=== PATIENT | female | born 1995 | race Caucasian/White ===

== ENCOUNTER → 2023-04-18 | Outpatient (CLI) | payer OTHER, SELFPAY ==
[2023-04-21 10:08] LABS: Chlamydia By Nucleic Acid AMP Negative (Negative); Gonococcus By Nucleic Acid AMP Negative (Negative)
== END | disposition home or self-care (01) ==
LOC: LABSPEC 15:19
PROVIDERS: Referring Provider Registered Nurse; Visit Provider Registered Nurse
DX: O09.91 Supervision of high risk pregnancy, unspecified, first trimester (principal); Z3A.00 Weeks of gestation of pregnancy not specified
CPT/HCPCS: 87086; 87491; 87591

== ENCOUNTER → 2023-05-04 | Outpatient (CLI) | payer OTHER, SELFPAY ==
[2023-05-04 10:09] LABS: Absolute Lymphocyte Count 1.94 X10^3/uL (0.83-4.51); Absolute Neutrophil Count 4.7 X10^3/uL (2.0-7.7); Basophil# 0.03 X10^3/uL; Basophil% 0.4 % (0-1); Eosinophil# 0.11 X10^3/uL; Eosinophils% 1.5 % (0-5); Hematocrit 36.8 % (37-47); Hemoglobin 11.9 g/dL (12.0-15.0); Lymphocyte # 1.94 X10^3/ul (0.83-4.51); Lymphocyte % 25.8 % (19-41); Mean Corp Hgb Conc 32.3 g/dL (32-36); Mean Corpuscular Hgb 27.7 pg (27.0-32.0); Mean Corpuscular Volume 85.8 fL (81-99); Mean Platelet Vol. 9.3 fl (6.2-12.0); Monocyte# 0.75 X10^3/uL; NRBC Flagged by Analyzer 0 % (0-5); Neutrophil # 4.66 X10^3/uL (2.7-7.7); Platelet Count 273 K/mm3 (150-450); RBC Distribution Width CV 13.5 % (11.6-14.6); RBC Distribution Width SD 42.3 fl (35.1-43.9); Red Blood Count 4.29 M/mm3 (4.2-5.4); White Blood Count 7.5 K/mm3 (4.4-11.0)
[2023-05-04 10:18] LABS: Glucose Challenge Gest 1H 50g 108 mg/dL (70-140)
[2023-05-04 11:02] LABS: HIV - WCH Non-Reactive (Nonreactive); Hepatitis B Surface Antigen Non-Reactive (Nonreactive); Hepatitis C Antibody Non-Reactive (Nonreactive); Rubella IgG Reactive (Nonreactive); Syphilis Antibodies Non-reactive
== END | disposition home or self-care (01) ==
PROVIDERS: PCP Family Medicine; Referring Provider Registered Nurse; Visit Provider Registered Nurse
DX: O09.91 Supervision of high risk pregnancy, unspecified, first trimester (principal); Z3A.00 Weeks of gestation of pregnancy not specified
CPT/HCPCS: 36415; 82950; 85025; 86703; 86762; 86780; 86803; 86850; 86900; 86901; 87340

== ENCOUNTER → 2023-08-09 | Outpatient (CLI) | payer OTHER, SELFPAY ==
[2023-08-09 15:56] LABS: Absolute Lymphocyte Count 2.59 X10^3/uL (0.83-4.51); Absolute Neutrophil Count 7.7 X10^3/uL (2.0-7.7); Basophil# 0.05 X10^3/uL; Basophil% 0.4 % (0-1); Eosinophil# 0.13 X10^3/uL; Eosinophils% 1.1 % (0-5); Hematocrit 36.7 % (37-47); Hemoglobin 11.8 g/dL (12.0-15.0); Lymphocyte # 2.59 X10^3/ul (0.83-4.51); Lymphocyte % 22.6 % (19-41); Mean Corp Hgb Conc 32.2 g/dL (32-36); Mean Corpuscular Hgb 28.6 pg (27.0-32.0); Mean Corpuscular Volume 89.1 fL (81-99); Mean Platelet Vol. 9.9 fl (6.2-12.0); Monocyte# 0.97 X10^3/uL; Monocyte% 8.5 % (0-10); NRBC Flagged by Analyzer 0 % (0-5); Neutrophil # 7.65 X10^3/uL (2.7-7.7); Platelet Count 285 K/mm3 (150-450); RBC Distribution Width CV 12.8 % (11.6-14.6); RBC Distribution Width SD 41.7 fl (35.1-43.9); Red Blood Count 4.12 M/mm3 (4.2-5.4); White Blood Count 11.4 K/mm3 (4.4-11.0)
[2023-08-09 16:15] LABS: Glucose Challenge Gest 1H 50g 54 mg/dL (70-140)
[2023-08-09 16:53] LABS: HIV - WCH Non-Reactive (Nonreactive); Syphilis Antibodies Non-reactive
== END | disposition home or self-care (01) ==
PROVIDERS: PCP Family Medicine; Referring Provider Obstetrics & Gynecology; Visit Provider Obstetrics & Gynecology
DX: O09.91 Supervision of high risk pregnancy, unspecified, first trimester (principal); Z3A.00 Weeks of gestation of pregnancy not specified
CPT/HCPCS: 36415; 82950; 85025; 86703; 86780

== ENCOUNTER → 2023-09-08 | Outpatient (CLI) | payer OTHER, SELFPAY ==
--- OUTSIDE RECORDS SUMMARY | 2023-09-08 15:49 | XMS RPT_ITS | CCD ---
Author Name Unknown Address [address] [place] [address] Organization [facility] Care Team Providers Care Internet And [employer] Business Project Manager Name Role Phone PATRICIO ROJAS Attending Unavailable VACCARIELLO, PATRICIO Admitting Unavailable VACCARIELLO, PATRICIO Primary Care Unavailable VACCARIELLO, PATRICIO Consulting Unavailable PROVIDER, UNKNOWN Consulting Unavailable PROVIDER, UNKNOWN Consulting Unavailable PROVIDER, UNKNOWN Consulting Unavailable VACCARIELLO, PATRICIO Attending Unavailable VACCSHALINI, PATRICIO Admitting Unavailable VACCARIELLO, PATRICIO Primary Care Unavailable VACCARIELLO, PATRICIO Consulting Unavailable PROVIDER, UNKNOWN Consulting Unavailable PROVIDER, UNKNOWN Consulting Unavailable PROVIDER, UNKNOWN Consulting Unavailable TING PRIMARY MD ABDI Primary Care Unavailable COLTON SAUER Attending Unavailable JAIME ZHAO Referring Unavailab le Problems Problem Classification Problem Date Documented Date Episodic/Chronic Other complications of ; puerperium affecting management of mother (3 sources) Abnormality in heart rate and rhythm complicating labor and delivery; Translations: [Abnormality in heart rate and rhythm complicating labor and delivery] Onset: 02-11-2021 Episodic Other and delivery including normal (1 source) Single live ; Translations: [Single live ] Onset: 02-11-2021 Episodic Other screening for suspected conditions (not mental disorders or infectious disease) (1 source) Encounter for screening for Streptococcus B; Translations: [Encounter for screening for Streptococcus B] Onset: 01-19-2021 Episodic Residual codes; unclassified (1 source) 39 weeks gestation of ; Translations: [39 weeks gestation of ] Onset: 02-11-2021 Episodic Results Test Name Value Interpretation Reference Range Facil ity Encounters Encounter Date Encounter Type Care Provider Facility Start: 06-21-2023 End: 06-21-2023 ambulatory MD [facility] Start: 02-11-2021 End: 02-13-2021 Evaluation and management of inpatient PATRICIO VACCARIELLO [facility] Start: 01-19-2021 End: 01-19-2021 [facility] Procedures Date Procedure Procedure Detail Performing Clinician Start: 02-12-2021 Delivery of Products of Conception, External Approach PATRICIO ROJAS Start: 02-12-2021 Division of Female P erineum, External Approach PATRICIO ROJAS Start: 02-12-2021 Urinalysis PATRICIO CHESTER Payers Date Payer Category Payer Unknown [id number] [id number] [id number] 1995 Unknown [id number] [id number] 1994 Unknown [id number] [id number]. [id number] Unknown [id number] Unknown [id number] Summary Purpose Family History No Family History Records FoundNo Family History Records FoundNo Family History Records FoundNo Family History Records FoundNo Family History Records Found Advance Directives No Advanced Directives Records FoundNo Advanced Directives Records FoundNo Advanced Directives Records FoundNo Advanced Directives Records FoundNo Advanced Directives Records Found Additional Source Comments INFORMATION SOURCE (unrecogn ized section and content) DATE CREATED AUTHOR AUTHOR'S ORGANIZ ATION 07/23/2020 [facility] DATE CREATED AUTHOR AUTHOR'S ORGANIZ ATION 07/12/2021 [facility] DATE CREATED AUTHOR AUTHOR'S ORGANIZ ATION 10/30/2021 [facility] DATE CREATED AUTHOR AUTHOR'S ORGANIZ ATION 06/22/2023 [facility] FOR RECORDS PERTAINING TO PATIENTS WHO ARE OR HAVE BEEN ENROLLED IN A CHEMICAL DEPENDENCY/SUBSTANCEABUSE PROGRAM, SOME INFORMATION MAY BE OMITTED. This clinical summary was aggregated from multiple sources. Caution should be exercised in using it in the provision of clinical care. This summary normalizes information from multiple sources, and as a consequence, information in this document may materially change the coding, format and clinical context of patient data. In addition, data may be omitted in some cases. CLINICAL DECISIONS SHOULD BE BASED ON THE PRIMARY CLINICAL RECORDS. [facility]. provides no warranty or guarantee of the accuracy or completeness of information in this document.
[2023-09-08 16:37] LABS: Protein, Urine (Random) 54.2 mg/dL (<11.9); Protein:Creat Ratio 187 mg/g CRE (0-200)
== END | disposition home or self-care (01) ==
LOC: LABSPEC 15:34
PROVIDERS: PCP Family Medicine; Referring Provider Obstetrics & Gynecology; Visit Provider Obstetrics & Gynecology
DX: Z34.90 Encounter for supervision of normal pregnancy, unspecified, unspecified trimester (principal)
CPT/HCPCS: 82570; 84156

== ENCOUNTER → 2023-10-25 | Outpatient (CLI) | payer OTHER, SELFPAY ==
--- OUTSIDE RECORDS SUMMARY | 2023-10-25 20:17 | XMS RPT_ITS | CCD ---
Author Name Unknown Address [address] [place] [address] Organization [facility] Care Team Providers Care Sand Hauler Name Role Phone PATRICIO ROJAS Attending Unavailable [...] End: 06-21-2023 ambulatory MD [facility] Start: 02-11-2021 End: 02-13-2021 Evaluation and management of inpatient PATRICIO VACCARIELLO [facility] Start: 01-19-2021 End: 01-19-2021 [facility] Procedures Date Procedure Procedure Detail Performing Clinician Start: 02-12-2021 Delivery of Products of Conception, External Approach PATRICIO ROJAS Start: 02-12-2021 Division of Female P erineum, External Approach PATRICIO ROJAS Start: 02-12-2021 Urinalysis PATRICIO CHESTER Payers Date Payer Category Payer Unknown [id number] [id number] 1995 Unknown [id number] [id number] 1995 Unknown [id number] [id number] Unknown [id number] Unknown [id number] Summary Purpose Family History No Family History [...] DATE CREATED AUTHOR AUTHOR'S ORGANIZ ATION 07/23/2020 [facility] DATE CREATED AUTHOR AUTHOR'S ORGANIZ ATION 07/12/2021 [facility] DATE CREATED AUTHOR AUTHOR'S ORGANIZ ATION 10/30/2021 [facility] DATE CREATED AUTHOR AUTHOR'S ORGANIZ ATION 06/22/2023 [facility] FOR RECORDS PERTAINING TO PATIENTS WHO [...] BE BASED ON THE PRIMARY CLINICAL RECORDS. [facility]. provides no warranty or guarantee of the accuracy or completeness of information in this document.
== END | disposition home or self-care (01) ==
PROVIDERS: PCP Family Medicine; Referring Provider Advanced Practice Midwife; Visit Provider Advanced Practice Midwife
DX: O09.91 Supervision of high risk pregnancy, unspecified, first trimester (principal); Z3A.00 Weeks of gestation of pregnancy not specified
CPT/HCPCS: 87077; 87081; 87186

== ENCOUNTER 2023-11-18 12:44 | Inpatient (IN) | payer OTHER, SELFPAY ==
[2023-11-18] VITALS (64 sets, daily range): BP systolic 87–146; BP diastolic 47–70; PULSE 58–87; RESP 16–18; TEMP 36.3–37.1; O2SAT 92–100; BMI 37.0
[2023-11-18] MEDS: Lactated Ringers 1,000 ML 50 ML IV (13:00)
[2023-11-18 13:35] LABS: Absolute Lymphocyte Count 2.52 X10^3/uL (0.83-4.51); Absolute Neutrophil Count 12.9 X10^3/uL (2.0-7.7); Basophil# 0.06 X10^3/uL; Basophil% 0.4 % (0-1); Eosinophil# 0.06 X10^3/uL; Eosinophils% 0.4 % (0-5); Hematocrit 37.1 % (37-47); Hemoglobin 11.9 g/dL (12.0-15.0); Lymphocyte # 2.52 X10^3/ul (0.83-4.51); Lymphocyte % 15.3 % (19-41); Mean Corp Hgb Conc 32.1 g/dL (32-36); Mean Corpuscular Hgb 28.1 pg (27.0-32.0); Mean Corpuscular Volume 87.7 fL (81-99); Mean Platelet Vol. 10.5 fl (6.2-12.0); Monocyte# 0.91 X10^3/uL; Monocyte% 5.5 % (0-10); NRBC Flagged by Analyzer 0 % (0-5); Platelet Count 251 K/mm3 (150-450); RBC Distribution Width CV 13.7 % (11.6-14.6); RBC Distribution Width SD 43.5 fl (35.1-43.9); Red Blood Count 4.23 M/mm3 (4.2-5.4); White Blood Count 16.5 K/mm3 (4.4-11.0)
[2023-11-18] MEDS: fentaNYL-bupivacaine (epidural) 100 ML BAG EPIDURAL ×2 (14:33→20:09)
[2023-11-18] MEDS: Penicillin G Pot 5,000,000 UNITS in 0.9% Normal Saline (100mL MB+) 100 ML 150 UNITS IV (14:40)
[2023-11-18 14:45] LABS: Syphilis Antibodies Non-reactive
[2023-11-18] MEDS: Lactated Ringers 1,000 ML 200 ML IV (17:37)
[2023-11-18] MEDS: Penicillin G 3,000,000 Units 50 ML 100 UNITS IV (18:35)
[2023-11-18] MEDS: Ondansetron 4 MG/2 ML Vial IV (19:34)
[2023-11-18] MEDS: 0.9% Saline Lock 10 ML Syringe IV (19:34)
[2023-11-18] MEDS: Oxytocin 10 UNITS/ML Vial IM (20:40)
[2023-11-18] MEDS: Oxytocin 15 Units/NS 250ml 15 UNITS/250 ML IV.SOLN 83 UNITS IV (20:40)
--- NOTE | 2023-11-18 20:48 | HP.PCM.OB_ITS ---
HPI - General General Date of Admission: 11/18/23 HPI Narrative MITUL MCDANIEL, is a 28 F who presents IAL with regular ctx, 4-5 cm dilated no vb lof Maternal Data Information SIVAKUMAR Calculator Estimated Delivery Date Method Current WG Current Estimate 11/17/23 LMP (Certain) 40w 1d PFSH PFSH Home Medications docosahexaenoic acid 200 mg capsule ( DHA) mg PO 04/18/23 [History Last Taken 11/17/23 22:00] Allergy/AdvReac Type Severity Reaction Status Date / Time No Known Allergies Allergy Verified 11/18/23 12:54 Family History Father Hodgkins lymphoma Social History current occupational status: employed 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 Date Name GA/Weeks Outcome Route Bth Weight Gen Labor Lgth Anesthesia Del Locatn Provider FOB 02/12/21 [place] 39 live - full term [facility] 7[facility]: [facility] Last Updated by: Alison Reynolds No issues during or delivery other than vacuum. Visit Details Expected Delivery Route/Plan Labor Preferences- CB/BF classes: [] labor support person: [] labor intervention preferences: epidural pain management options preferred: [] cut cord/dad catch: [] : [] PP control planned: [] discussed possible routes of delivery and associated risks: [] special requests: [] Plans Covid status: [] Flu vaccine: declined Tdap vaccine: declined Rhogam: na LARC form signed: [] Problem list reviewed and updated with the most current plan of care details and appropriate orders placed. Relevant counseling for the gestational age provided. Continue routine care and follow up unless otherwise noted in visit notes/problem list details OB Flowsheet Initial Weight: 236 lb Date -?-?-?-?-?-?-?-?-?-?-?-?- EGA Weight BP Urine Prot -?-?-?-?-?-?-?-?-?-?-?-?- Glucose FHR FuHt Pres Dilation -?-?-?-?-?-?-?-?-?-?-?-?- Effaced St Visit Note 04/18/23 -?-?-?-?-?-?-?-?-?-?-?-?- 9w 4d 236 lb (+0 oz) 120/78 -?--?-?-?-?-?-?-?-?-?-?-?- 169 -?-?-?-?-?-?-?-?-?-?-?-?- LC- 2.7CRL con w ith LMP. SIVAKUMAR 11/17/2023.reviewed with SM. BMI >30 early glucose. considering NIPT. 05/18/23 -?-?-?-?-?-?-?-?-?-?-?-?- 13w 6d 233 lb 2 oz (-2 lb 14 oz) 120/77 Negative -?-?-?-?-?-?-?-?-?-?-?-?- Negative 144 -?-?-?-?-?-?-?-?-?-?-?-?- JV- decided agai nst nipt JV- decided against nipt. na usea is improving but not gone. [place] are going [place] 06/15/23 -?-?-?-?-?-?-?-?-?-?-?-?- 17w 6d 233 lb 6 oz (-2 lb 10 oz) 120/78 Negative -?-?-?-?-?-?-?-?-?-?-?-?- Negative 146 -?-?-?-?-?-?-?-?-?-?-?-?- MH-No VB. Declin es NIPT and flu vaccine. Still using zofran for nausea. 07/12/23 -?-?-?-?-?-?-?-?-?-?-?-?- 21w 5d 240 lb (+4 lb) 129/82 Negative -?-?-?-?-?-?-?-?-?-?-?-?- Negative 141 -?-?-?-?-?-?-?-?-?-?-?-?- JV- nausea still present and is taking zofran frequently. This is causing constipation which is now making her hemorrhoids flare up. will switch to reglan an recommend colace + miralax. anatomy scan was not complete the first time but had her follow up scan yesterday. results are pending but states they were complete this time. 08/09/23 -?-?-?-?-?-?-?-?-?-?-?-?- 25w 5d 240 lb (+4 lb) 112/78 Negative -?-?-?-?-?-?-?-?-?-?-?--?- Negative 150 26 -?-?-?-?-?-?-?-?-?-?-?-?- SM- `no vb lof g ood fm no regular ctx nl glucola reviewed low BS 08/24/23 -?-?-?-?-?-?-?-?-?-?-?-?- 27w 6d 241 lb 2 oz (+5 lb 2 oz) 133/75 Negative -?-?-?-?-?-?-?-?-?-?-?-?- Negative 154 28 -?-?-?-?-?-?-?-?-?-?-?-?- JV- no lof, vagi nal bleeding, or dec fm. normal (low) glucola. tdap next visit. 09/08/23 -?-?-?-?-?-?-?-?-?-?-?-?- 30w 0d 245 lb (+9 lb) 125/81 1+ -?-?-?-?-?-?-?-?-?-?-?-?- Negative 150 30 -?-?-?-?-?-?-?-?-?-?-?-?- SM- no vb lof go od fm no reuglar ctx 09/21/23 -?-?-?-?-?-?-?-?-?-?-?-?- 31w 6d 246 lb 6 oz (+10 lb 6 oz) 128/79 -?-?-?-?-?-?-?-?-?-?-?-?- 130 32 -?-?-?-?-?-?-?-?-?-?-?-?- LC- audible dece l to 70 with quick resolution to 130, decel to 100s heard. NST obtained, reactive with accel no further decels. no vb/ctx/lof. good fm. larc signed. 10/06/23 -?-?-?-?-?-?-?-?-?-?-?-?- 34w 0d 249 lb 6 oz (+13 lb 6 oz) 116/74 Negative -?-?-?-?-?-?-?-?-?-?-?-?- Negative 130 34 -?-?-?-?-?-?-?-?-?-?-?-?- KW-no vb/crampin g. good fm. no concerns today. 10/18/23 -?-?-?-?-?-?-?-?-?-?-?-?- 35w 5d 248 lb 2 oz (+12 lb 2 oz) 121/80 Negative -?-?-?-?-?-?-?-?-?-?-?-?- Negative 140 35 -?-?-?-?-?-?-?-?-?-?-?-?- KW- no vb/crampi ng/lof. good fm. GBS next visit. 10/25/23 -?-?-?-?-?-?-?-?-?-?--?-?- 36w 5d 250 lb 4 oz (+14 lb 4 oz) 136/86 Negative -?-?-?-?-?-?-?-?-?-?-?-?- Negative 155 37 Cephalic 2 -?-?-?-?-?-?-?-?--?-?-?-?- 60 -2 KW-no vb/l of/ctx. good fm. gbs today. discussed EPO use. 11/02/23 -?-?-?-?-?-?-?-?-?-?-?-?- 37w 6d 251 lb 2 oz (+15 lb 2 oz) 120/82 Negative -?-?-?-?-?-?-?-?-?-?-?-?- Negative 129 Cephalic 1.5 -?-?-?-?-?-?-?-?-?-?-?-?- 70 -1 JV- no lof , vaginal bleeding, or dec fm. 11/10/23 -?-?-?-?-?-?-?-?-?-?-?-?- 39w 0d 254 lb (+18 lb) 130/83 Negative -?-?-?-?-?-?-?-?-?-?-?-?- Negative 120 Cephalic 1.5 -?-?-?-?-?-?-?-?-?-?-?-?- 60 -2 SM- no vb lof good fm no regular ctx 11/17/23 -?-?-?-?-?-?-?-?-?-?-?-?- 40w 0d 354 lb (+118 lb) 254 lb (+18 lb) 128/84 Negative -?-?-?-?-?-?-?-?-?-?-?-?- Negative 120 37 Cephalic 2 -?-?-?-?-?-?-?-?-?-?-?-?- 70 SM- no v b lof good fm no regular ctx fh low silvio checked- NST FHR Rate Baby A Baseline: 140 Variability:: Moderate Accelerations:: 15 x 15 Decelerations:: None NST Reactive:: Yes FHR Category:: Category I Uterine Activity:: q3-5 ROS Constitutional Constitutional: Reports systems reviewed and no addt'l complaints, except as documented ENT HEENT: Reports systems reviewed and no addt'l complaints, except as documented Cardiovascular Cardiovascular: Reports systems reviewed and no addt'l complaints, except as documented Respiratory/Chest Respiratory/Chest: Reports systems reviewed and no addt'l complaints, except as documented Gastrointestinal Gastrointestinal: Reports systems reviewed and no addt'l complaints, except as documented and nausea; Denies abdominal pain Genitourinary Genitourinary: Reports systems reviewed and no addt'l complaints, except as documented, contractions Details: present and frequency (regular ) and movement Details: present Musculoskeletal Musculoskeletal: Reports systems reviewed and no addt'l complaints, except as documented Integumentary Integumentary: Reports as per HPI Neurologic Neurologic: Reports systems reviewed and no addt'l complaints, except as documented Endocrine Endocrinology: Reports systems reviewed and no addt'l complaints, except as documented Vital Signs Vital Signs Vital Signs: 11/18/23 12:50 11/18/23 12:50 11/18/23 12:55 Temperature Temperature Source Pulse Rate 82 81 Respiratory Rate Blood Pressure BP Systolic BP Diastolic Pulse Ox 100 11/18/23 12:55 11/18/23 14:01 11/18/23 14:01 Temperature Temperature Source Pulse Rate 73 Respiratory Rate Blood Pressure 146/67 H BP Systolic 146 BP Diastolic 67 Pulse Ox 100 11/18/23 14:01 11/18/23 14:11 11/18/23 14:14 Temperature Temperature Source Pulse Rate 76 Respiratory Rate Blood Pressure 119/70 BP Systolic 119 BP Diastolic 70 Pulse Ox 100 11/18/23 14:14 11/18/23 14:17 11/18/23 14:17 Temperature Temperature Source Pulse Rate 74 Respiratory Rate Blood Pressure BP Systolic BP Diastolic Pulse Ox 100 92 11/18/23 14:19 11/18/23 14:19 11/18/23 14:22 Temperature Temperature Source Pulse Rate 73 Respiratory Rate Blood Pressure 100/48 L BP Systolic 100 BP Diastolic 48 Pulse Ox 100 11/18/23 14:22 11/18/23 14:24 11/18/23 14:24 Temperature Temperature Source Pulse Rate 87 76 Respiratory Rate Blood Pressure BP Systolic BP Diastolic Pulse Ox 100 11/18/23 14:26 11/18/23 14:26 11/18/23 14:29 Temperature Temperature Source Pulse Rate 77 75 Respiratory Rate Blood Pressure 97/51 L BP Systolic 97 BP Diastolic 51 Pulse Ox 11/18/23 14:29 11/18/23 14:33 11/18/23 14:33 Temperature Temperature Source Pulse Rate 71 Respiratory Rate Blood Pressure 98/55 L BP Systolic 98 BP Diastolic 55 Pulse Ox 100 11/18/23 14:34 11/18/23 14:34 11/18/23 14:36 Temperature Temperature Source Pulse Rate 71 Respiratory Rate Blood Pressure 100/53 L BP Systolic 100 BP Diastolic 53 Pulse Ox 100 11/18/23 14:36 11/18/23 14:39 11/18/23 14:39 Temperature Temperature Source Pulse Rate 74 77 Respiratory Rate Blood Pressure BP Systolic BP Diastolic Pulse Ox 100 11/18/23 14:41 11/18/23 14:41 11/18/23 14:44 Temperature Temperature Source Pulse Rate 69 70 Respiratory Rate Blood Pressure 100/53 L BP Systolic 100 BP Diastolic 53 Pulse Ox 11/18/23 14:44 11/18/23 14:49 11/18/23 14:49 Temperature Temperature Source Pulse Rate 74 Respiratory Rate Blood Pressure BP Systolic BP Diastolic Pulse Ox 100 100 11/18/23 14:53 11/18/23 14:53 11/18/23 14:54 Temperature Temperature Source Pulse Rate 69 68 Respiratory Rate Blood Pressure 100/51 L BP Systolic 100 BP Diastolic 51 Pulse Ox 11/18/23 14:54 11/18/23 15:14 11/18/23 15:14 Temperature Temperature Source Pulse Rate 66 Respiratory Rate Blood Pressure 106/55 L BP Systolic 106 BP Diastolic 55 Pulse Ox 100 11/18/23 14:15 11/18/23 16:15 11/18/23 16:15 Temperature Temperature Source Pulse Rate 71 Respiratory Rate 16 Blood Pressure 106/57 L BP Systolic 106 BP Diastolic 57 Pulse Ox 11/18/23 17:14 11/18/23 17:14 11/18/23 17:15 Temperature Temperature Source Pulse Rate 62 Respiratory Rate Blood Pressure 88/47 L BP Systolic 88 BP Diastolic 47 Pulse Ox 99 11/18/23 17:15 11/18/23 17:19 11/18/23 17:19 Temperature Temperature Source Pulse Rate 67 65 Respiratory Rate Blood Pressure BP Systolic BP Diastolic Pulse Ox 100 11/18/23 17:19 11/18/23 17:19 11/18/23 17:19 Temperature 98.7 F Temperature Source Temporal Pulse Rate Respiratory Rate 16 Blood Pressure BP Systolic BP Diastolic Pulse Ox 11/18/23 17:24 11/18/23 17:24 11/18/23 18:16 Temperature Temperature Source Pulse Rate 66 Respiratory Rate Blood Pressure 89/53 L 87/49 L BP Systolic 89 87 BP Diastolic 53 49 Pulse Ox 11/18/23 18:16 11/18/23 18:45 11/18/23 18:45 Temperature Temperature Source Pulse Rate 65 68 Respiratory Rate Blood Pressure 101/60 BP Systolic 101 BP Diastolic 60 Pulse Ox 11/18/23 19:15 11/18/23 19:15 11/18/23 19:35 Temperature Temperature Source Temporal Pulse Rate 74 Respiratory Rate Blood Pressure 111/57 L BP Systolic 111 BP Diastolic 57 Pulse Ox 11/18/23 19:35 11/18/23 19:35 11/18/23 14:05 Temperature 97.6 F L Temperature Source Pulse Rate Respiratory Rate 18 16 Blood Pressure BP Systolic BP Diastolic Pulse Ox 11/18/23 14:20 11/18/23 14:13 11/18/23 14:30 Temperature Temperature Source Pulse Rate Respiratory Rate 16 16 16 Blood Pressure BP Systolic BP Diastolic Pulse Ox 11/18/23 14:25 11/18/23 14:21 11/18/23 14:32 Temperature Temperature Source Pulse Rate Respiratory Rate 16 16 16 Blood Pressure BP Systolic BP Diastolic Pulse Ox 11/18/23 20:05 11/18/23 20:06 11/18/23 20:06 Temperature Temperature Source Temporal Pulse Rate 64 Respiratory Rate Blood Pressure 109/63 BP Systolic 109 BP Diastolic 63 Pulse Ox 11/18/23 20:05 11/18/23 20:05 Temperature 97.3 F L Temperature Source Pulse Rate Respiratory Rate 16 Blood Pressure BP Systolic BP Diastolic Pulse Ox Weight Weight: 251 lb Body Mass Index (BMI) 37.0 Physical Exam Const alert, oriented x3 and healthy appearing Constitutional Narrative: uncomfortable with contractions HEENT normocephalic and moist oral mucous membranes Head and Scalp: atraumatic Neck full ROM, no lymphadenopathy, supple and thyroid normal General: trachea midline Thyroid: thyroid normal Lymph Lymphatic: no lymphadenopathy noted Chest inspection of chest normal Resp normal respiratory effort Cardio regular rate GI normal to inspection, nondistended, normoactive bowel sounds, soft to palpation and non-tender Inspection: gravid external exam normal Bimanual Exam - Vag & Uterus: uterus non-tender Manual OB Exam: estimated gestational size appropriate, presentation cephalic, dilated, effaced and station Extremity normal to inspection General Extremity: Negative for edema Skin no rashes or lesions noted Neuro deep tendon reflexes 2+ bilaterally Motor Exam: strength 5/5 throughout and clonus absent Psych mental status grossly normal Labs Labs Labs: Blood Type O POSITIVE Antibody Screen NEGATIVE Hct 37.1 % (37-47) Hgb 11.9 g/dL (12.0-15.0) L Syphilis Total Ab Non-reactive Rubella IgG Antibody Reactive (Nonreactive) Hep Bs Antigen Non-Reactive (Nonreactive) Hepatitis C Antibody Non-Reactive (Nonreactive) Chlamydia DNA (JASON) Negative (Negative) N.gonorrhoeae DNA (JASON) Negative (Negative) HIV 1&2 Antibody Non-Reactive (Nonreactive) Glucose 1 Hr 50 gm 54 mg/dL (70-140) L Assessment & Plan (1) Positive GBS test: COMMENT: treat in labor (2) Nausea & vomiting: QUALIFIERS: Vomiting type: unspecified Qualified Code(s): R11.2 - Nausea with vomiting, unspecified COMMENT: vitamin b 6 and unisom adding zofran/controlling (3) History of vacuum extraction assisted delivery: COMMENT: at 39 weeks. (4) Depression with anxiety: (5) Obesity: QUALIFIERS: Obesity type: due to excess calories Obesity classification: adult class 1 (BMI 30 - 34.9) Serious obesity comorbidity presence: without serious comorbidity Body mass index: BMI 34.0-34.9 Qualified Code(s): E66.09 - Other obesity due to excess calories; Z68.34 - Body mass index [BMI] 34.0-34.9, adult COMMENT: 1hr GTT given at NOB- passed. healthy weight gain, activity in . (6) : QUALIFIERS: Weeks of gestation: 40 weeks Qualified Code(s): Z3A.40 - 40 weeks gestation of COMMENT: considering genetic and carrier screen. (7) Supervision of high risk in first trimester: COMMENT: PRR SIVAKUMAR 11/17/23 girl PC [place]. : Dinh (8) Active labor at term: PLAN: Plan Patient presents IAL, plan expectant management for , pitocin/AROM PRN if needed. Pain management: plans epidural. GBS positive plan IV PCN. Management of any complications: none I have reviewed the [facility] and made any clinically relevant updates.
--- NOTE | 2023-11-18 20:56 | EX.PCM.OBRPT ---
Assessment & Plan (1) Active labor at term: (2) Positive GBS test: COMMENT: treat in labor (3) Nausea & vomiting: QUALIFIERS: Vomiting type: unspecified Qualified Code(s): R11.2 - Nausea with vomiting, unspecified COMMENT: vitamin b 6 and unisom adding zofran/controlling (4) Supervision of high risk in first trimester: COMMENT: PRR SIVAKUMAR 11/17/23 girl PC [place]. : Dinh (5) : QUALIFIERS: Weeks of gestation: 40 weeks Qualified Code(s): Z3A.40 - 40 weeks gestation of COMMENT: considering genetic and carrier screen. (6) Obesity: QUALIFIERS: Obesity type: due to excess calories Obesity classification: adult class 1 (BMI 30 - 34.9) Serious obesity comorbidity presence: without serious comorbidity Body mass index: BMI 34.0-34.9 Qualified Code(s): E66.09 - Other obesity due to excess calories; Z68.34 - Body mass index [BMI] 34.0-34.9, adult COMMENT: 1hr GTT given at NOB- passed. healthy weight gain, activity in . (7) Depression with anxiety: (8) Vaginal delivery: COMMENT: SM IAL girl 40 Maternal Data Information SIVAKUMAR Calculator Estimated Delivery Date Method Current WG Current Estimate 11/17/23 LMP (Certain) 40w 1d Vaginal Delivery Operative Information Date of Procedure: 11/18/23 Pre-Operative Diagnosis: see a/p diagnoses Post-Operative Diagnosis: same Surgery / Procedure Performed: Spontaneous Vaginal Delivery Type of Anesthesia: Epidural Special Medications: none Estimated Blood Loss: 200 Fluids Replaced: crystalloid Findings Description of Procedure: Patient began pushing and delivered the head in the VERN presentation. The head was delivered atraumatically and a loose nuchal cord ?1 was identified and the infant delivered through without complication. The anterior and posterior shoulders delivered without complication followed by the rest of the infant and the was placed on the maternal abdomen. Delayed cord clamping was employed for approximately 60 seconds. Cord was clamped and cut and gentle traction was applied to the cord and the placenta delivered spontaneously immediately following it was noted to be intact with three-vessel cord. The perineum and vagina were inspected and noted to have a first degree perineal laceration which was repaired in the usual fashion with 3-0 vicryl rapide. . EBL was 200 cc. Patient and tolerated delivery well. Amniotic Fluid Description: Clear Placental Delivery Description: Spontaneous Placenta Disposition: [facility] Cord Vessel Description: 3 Vessels Cord Entanglement: Around neck x 1, loose Delayed Cord Clamping: Yes Post Vaginal Delivery Medications Given After Delivery: IV Pitocin Episiotomy Description: None Complication Complications: None Procedures Urinary/Genital [id number]: [id number] [facility]
--- NOTE | 2023-11-18 20:58 | DCINST_ITS ---
Discharge Instructions Diet Discharge Diet: No restrictions Activity Discharge Activity: Return to Normal Activity, May Not Drive (while taking narcotic pain medications.) and May Shower May resume sexual activity in: 4-6 weeks Dressing / Incision Call your doctor if your incision/area has: Continuous Slow Oozing, Sudden Increased Bleeding, Increased Pain/ Swelling, Increased Redness and Foul Smelling Discharge Follow Up Care Please Follow Up With: Gail Jackson MD When: Call [phone] to make an appointment with your doctor in 6 weeks. If you had elevated blood pressure or 4th degree laceration, you will need to be seen in 2 weeks. Test Results: Test results from this visit will be discussed in further detail at your follow- up appointment, if applicable. Discharge Plan Admission Admit Date/Time: 11/18/23 12:44 Attending Provider: Gail Jackson Primary Care Provider: Angela Pond Discharge Orders/Prescriptions Prescriptions: No Action DHA 200 mg capsule PO Referrals / Follow Up: Angela Pond PA-C [Primary Care Provider] -
--- NOTE | 2023-11-18 21:03 | NURSING ---
guadalupe cath insertion per Abe MCLEOD.
--- NOTE | 2023-11-18 22:54 | NURSING ---
Epidural catheter removed, blue tip intact.
[2023-11-19 00:15] VITALS: BP 116/59; PULSE 71; RESP 16; TEMP 36.6; O2SAT 100
[2023-11-19 04:17] VITALS: BP 115/63; PULSE 69; RESP 16; TEMP 36.7; O2SAT 95
[2023-11-19] MEDS: Acetaminophen 500 MG Tablet 1000 MG PO (04:32)
[2023-11-19 08:20] VITALS: BP 119/66; PULSE 60; RESP 14; TEMP 37; O2SAT 99
[2023-11-19 12:30] VITALS: BP 122/78; PULSE 85; RESP 16; TEMP 36.6
[2023-11-19 17:52] VITALS: BP 133/55; PULSE 74; RESP 16; TEMP 36.6; O2SAT 100
[2023-11-19] MEDS: Benzocaine/Lanolin/Aloe Vera 1 SPRAY EACH TOPICAL (21:03)
[2023-11-19] MEDS: Naproxen 500 MG Tablet PO (21:03)
[2023-11-19 21:11] VITALS: BP 122/52; PULSE 71; RESP 16; TEMP 36.6; O2SAT 97
[2023-11-20 03:32] VITALS: BP 100/58; PULSE 55; RESP 16; TEMP 36.3; O2SAT 95
[2023-11-20 08:49] VITALS: BP 128/75; PULSE 69; RESP 16; TEMP 36.2; O2SAT 99
--- NOTE | 2023-11-20 10:41 | PCM.PN.OB ---
Subjective Subjective late documentation- patient seen 11/18 at 800am Patient doing well without complaints. Tolerating PO. Ambulating and voiding without difficulty. Feeding well. Denies chest pain, shortness of breath, calf pain/swelling, fevers, chills, lightheadedness. Objective Data Objective Data Vital Signs: Vital Signs Temp Pulse Resp BP Pulse Ox O2 Del Method 97.2 F L 69 16 128/75 H 99 Room Air 11/20/23 08:49 11/20/23 08:49 11/20/23 08:49 11/20/23 08:49 11/20/23 08:49 11/20/23 03:32 Oxygen Delivery Method Room Air Weight: 251 lb Body Mass Index (BMI) 37.0 Intake & Output: Intake and Output for Last 24 Hours 11/18/23 11/19/23 11/21/23 23:59 23:59 00:59 Intake Total 1445.83 / 1445.83 Output Total 1150 / 1150 1400 / 1400 Balance 295.83 / 295.83 -1400 / -1400 Lab / Micro Data 11/18/23 13:20 ROS Constitutional Constitutional: Reports systems reviewed and no addt'l complaints, except as documented Cardiovascular Cardiovascular: Reports systems reviewed and no addt'l complaints, except as documented Respiratory/Chest Respiratory/Chest: Reports systems reviewed and no addt'l complaints, except as documented Gastrointestinal Gastrointestinal: Reports systems reviewed and no addt'l complaints, except as documented Physical Exam Const alert, oriented x3 and no apparent distress HEENT Head and Scalp: atraumatic Resp normal respiratory effort GI soft to palpation and non-tender Bimanual Exam - Vag & Uterus: uterus non-tender Uterus Palpation: uterus fundus firm (below Umbilicus) Assessment & Plan (1) Vaginal delivery: COMMENT: SM IAL girl 39 (2) Depression with anxiety: PLAN: Plan s/p PPD # 1 1. routine post delivery care 2. breast feeding- support given 3. rh positive 4. rubella immune
--- NOTE | 2023-11-20 10:42 | PCM.PN.OB ---
Subjective Subjective Patient doing well without complaints. Tolerating PO. Ambulating and voiding without difficulty. feeding well. Denies chest pain, shortness of breath, calf pain/swelling, fevers, chills, lightheadedness. Objective Data Objective Data Vital Signs: Vital Signs Temp Pulse Resp BP Pulse Ox O2 Del Method 97.2 F L 69 16 128/75 H 99 Room Air 11/20/23 08:49 11/20/23 08:49 11/20/23 08:49 11/20/23 08:49 11/20/23 08:49 11/20/23 03:32 Oxygen Delivery Method Room Air Weight: 251 lb Body Mass Index (BMI) 37.0 Intake & Output: Intake and Output for Last 24 Hours 11/18/23 11/19/23 11/21/23 23:59 23:59 00:59 Intake Total 1445.83 / 1445.83 Output Total 1150 / 1150 1400 / 1400 Balance 295.83 / 295.83 -1400 / -1400 Lab / Micro Data 11/18/23 13:20 ROS Constitutional Constitutional: Reports systems reviewed and no addt'l complaints, except as documented Cardiovascular Cardiovascular: Reports systems reviewed and no addt'l complaints, except as documented Respiratory/Chest Respiratory/Chest: Reports systems reviewed and no addt'l complaints, except as documented Gastrointestinal Gastrointestinal: Reports systems reviewed and no addt'l complaints, except as documented Physical Exam Const alert, oriented x3 and no apparent distress HEENT Head and Scalp: atraumatic Resp normal respiratory effort GI soft to palpation and non-tender Bimanual Exam - Vag & Uterus: uterus non-tender Uterus Palpation: uterus fundus firm (below Umbilicus) Assessment & Plan (1) Vaginal delivery: COMMENT: SM IAL girl Natacha 39 (2) Depression with anxiety: PLAN: Plan s/p PPD # 2 1. routine post delivery care 2. breast feeding- support given 3. rh positive 4. rubella immune
== END 2023-11-20 11:15 | disposition home or self-care (01) | DRG 807 ==
PROVIDERS: Admitting Provider Obstetrics & Gynecology; PCP Family Medicine; Referring Provider Obstetrics & Gynecology; Visit Provider Obstetrics & Gynecology
DX: O69.81X0 Labor and delivery complicated by cord around neck, without compression, not applicable or unspecified (principal); Z37.0 Single live birth; E66.09 Other obesity due to excess calories; O99.214 Obesity complicating childbirth; O99.824 Streptococcus B carrier state complicating childbirth; O70.0 First degree perineal laceration during delivery; O21.2 Late vomiting of pregnancy; Z3A.40 40 weeks gestation of pregnancy; Z87.59 Personal history of other complications of pregnancy, childbirth and the puerperium
CPT/HCPCS: 59025; 59050; 85025; 86780; 86850; 86900; 86901; J7120; A4216; J2405

== ENCOUNTER → 2023-12-28 | Outpatient (CLI) | payer OTHER, SELFPAY ==
[2024-01-04 16:44] LABS: HPV Reflexed? NOT INDICATED
== END | disposition home or self-care (01) ==
PROVIDERS: PCP Family Medicine; Referring Provider Nurse Practitioner Women's Health; Visit Provider Nurse Practitioner Women's Health
DX: Z12.4 Encounter for screening for malignant neoplasm of cervix (principal)
CPT/HCPCS: 88175; G0145

== ENCOUNTER → 2025-07-01 | Outpatient (CLI) | payer OTHER, SELFPAY ==
--- OUTSIDE RECORDS SUMMARY | 2025-07-01 12:04 | XMS RPT_ITS | CCD ---
Author Organization [facility] Care Team Providers Care Street Light Repairer Name Role Phone GERMAN, PATRICIO Attending Unavailable VACCARIELLO, PATRICIO Admitting Unavailable VACCARIELLO, PATRICIO Primary Care Unavailable VACCARIELLO, PATRICIO Consulting Unavailable PROVIDER, UNKNOWN Consulting Unavailable PROVIDER, UNKNOWN Consulting Unavailable PROVIDER, UNKNOWN Consulting Unavailable VACCARIELLO, PATRICIO Attending Unavailable VACCARIELLO, PATRICIO Admitting Unavailable VACCARIELLO, PATRICIO Primary Care Unavailable VACCARIELLO, PATRICIO Consulting Unavailable PROVIDER, UNKNOWN Consulting Unavailable PROVIDER, UNKNOWN Consulting Unavailable PROVIDER, UNKNOWN Consulting Unavailable LAURA Villa Attending Provider [phone] NO PRIMARY CARE, Primary Care Unavailable COLTON SAUER Attending Unavailable INDIGO ZHAO Referring Unavailab LAURA Youngblood Attending Provider Dr. Indigo Reyes Attending Provider [phone] Bono PA, PA-C Angela Primary Care Provider Bono PA, PA-C Angela Referring Provider Jessica WIRER MAINTENANCE, MYRIAM Blanco Attending Provider [phone] Dr. Gail Jackson Attending Provider [phone] Bono PA, PA-C Angela Primary Care Provider [phone] Bono PA, PA-C Angela Referring Provider Dr. Indigo Reyes Attending Provider [phone] LAURA Villa Attending Provider [phone] LAURA Serra Attending Provider [phone] Bono PA, PA-C Angela Primary Care Provider Bono PA, PA-C Agnela Referring Provider [phone] Dr. Gail Jackson Attending Provider [phone] Dr. Indigo Reyes Attending Provider [phone] LAURA Villa Attending Provider [phone] LAURA Serra Attending Provider [phone] Dr. Gail Jackson Admit Provider [phone] Dr. Gail Jackson Referring Provider [phone] Dr. aGil Jackson Other Provider [phone] Bono PA, PA-C Angela Primary Care Provider [phone] Bono PA, PA-C Angela Referring Provider Dr. Gail Jackson Attending Provider [phone] Dr. Indigo Reyes Attending Provider [phone] Jessica WIRER MAINTENANCE, WIRER MAINTENANCEAlinC Bella Attending Provider [phone] Gail Jackson Attending Unavailable Bono PA, Angela Primary Care Unavailable Bono PA, Angela Referring Unavailable Vande VeldeIndigo Attending Unavailabl e Bono PA, Angela Referring Unavailable Bono PA, Angela Primary Care Unavailable Bella Lopez Attending Unavailable Bono PA, Angela Referring Unavailable Bono PA, Angela Primary Care Unavailable Gail Jackson Consulting Unavailable Gail Jackson Admitting Unavailable Gail Jackson Referring Unavailable Bono PA, Angela Primary Care Unavailable Gail Jackson Attending Unavailable Gail Jackson Consulting Unavailable Vande VeldeValerieIndigo Referring Unavailabl e Vande VeldeIndigo Attending Unavailabl e Bono PA, Angela Primary Care Unavailable Bono PA, Angela Primary Care Unavailable Lauren Serra Attending Unavailable Lauren Serra Referring Unavailable Gail Jackson Admitting Unavailable Gail Jackson Referring Unavailable Gail Jackson Attending Unavailable Bono PA, Angela Primary Care Unavailable Gail Jackson Referring Unavailable Gail Jackson Attending Unavailable Bono PA, Angela Primary Care Unavailable Bella Lopez Attending Unavailable Bono PA, Angela Primary Care Unavailable Bono PA, Angela Referring Unavailable Gail Jackson Attending Unavailable Bono PA, Angela Referring Unavailable Bono PA, Angela Primary Care Unavailable Bono PA, Angela Primary Care Unavailable Gail Jackson Attending Unavailable Bono PA, Angela Referring Unavailable Judy Villa Attending Unavailable Indigo Reyes [facility] Angela Primary Care Unavailable Bono PA, Angela Referring Unavailable Gail Jackson Attending Unavailable Bono PA, Angela Primary Care Unavailable Bono PA, Angela Referring Unavailable Indigo Reyes [facility], Angela Primary Care Unavailable Bono PA, Angela Referring Unavailable Bono PA, Angela Referring Unavailable Bono PA, Angela Primary Care Unavailable Lauren Serra Attending Unavailable Bono PA, Angela Referring Unavailable Bono PA, Angela Primary Care Unavailable Lauren Serra Attending Unavailable Bella Lopez Referring Unavailable Bella Lopez Attending Unavailable Bono PA, Angela Primary Care Unavailable Judy Villa Referring Unavailable Judy Villa Attending Unavailable Bono PA, Angela Primary Care Unavailable Bono PA, Angela Referring Unavailable Bono PA, Angela Primary Care Unavailable Lauren Serra Attending Unavailable Judy Villa Referring Unavailable Judy iVlla Attending Unavailable Judy Villa Attending Unavailable Bono PA, Angela Referring Unavailable Bono PA, Angela Primary Care Unavailable Bono PA, Angela Referring Unavailable Gail Jackson Attending Unavailable Bono PA, Angela Primary Care Unavailable Indigo Reyes [facility], Angela Referring Unavailable Bono PA, Angela Primary Care Unavailable Gail Jackson Attending Unavailable Bono PA, Angela Primary Care Unavailable Bono PA, Angela Referring Unavailable Medications Current Medications Medication Drug Class(es) Dates Sig (Normalized) Sig (Original) docosahexaenoic acid 200 mg oral capsule (6 sources) Start: 04-18-2023 Docosahexaenoic Acid ( Dha) 200 mg capsule Active MG PO April 18, 2023 12:00am sertraline 50 mg oral tablet (1 source) Serotonin Reuptake Inhibitor Start: 12-28-2023 take 50 mg by mouth once daily Sertraline Active 50 MG PO DAILY December 28, 2023 12:00am Completed/Discontinued Medications Medication Drug Class(es) Dates Sig (Normalized) Sig (Original) metoclopramide 10 mg oral tablet (5 sources) Dopamine-2 Receptor Antagonist Start: 07-12-2023 End: 11-18-2023 take 1 tablet by mouth every six hours Metoclopramide Hcl (Reglan) 10 mg tablet Discontinued 10 MG PO EVERY 6 HOURS July 12, 2023 12:00am November 18, 2023 1:54pm ondansetron 4 mg disintegrating oral tablet (20 sources) Serotonin-3 Receptor Antagonist Start: 04-18-2023 End: 11-18-2023 take 4 mg by mouth every eight hours Ondansetron Discontinued 4 MG PO Q8H July 03, 2023 7:22pm November 18, 2023 1:56pm Problems Active Problems Problem Classification Problem Date Documented Date Episodic/Chronic Anxiety disorders (20 sources) Mixed anxiety and depressive disorder; Translations: [Other specified anxiety disorders] Onset: 11-02-2023 04-18-2023 Chronic Bacterial infection; unspecified site (13 sources) Bacteria present; Translations: [Streptococcus, group B, as the cause of diseases classified elsewhere] Onset: 11-02-2023 10-28-2023 Episodic Nausea and vomiting (20 sources) Nausea and vomiting; Translations: [Nausea with vomiting, unspecified] Onset: 11-02-2023 04-18-2023 Episodic Other complications of (6 sources) High risk ; Translations: [Supervision of high risk , unspecified, first trimester] 04-18-2023 Episodic Other complications of (20 sources) Supervision of high risk , unspecified, first trimester; Translations: [Supervision of unspecified high-risk ] Onset: 11-02-2023 04-18-2023 Episodic Other complications of (1 source) Other abnormal findings on screening of mother; Translations: [Other abnormal findings on screening of mother] Onset: 11-18-2023 Episodic Other nutritional; endocrine; and metabolic disorders (6 sources) Obesity; Translations: [Obesity, unspecified] 04-18-2023 Chronic Other nutritional; endocrine; and metabolic disorders (20 sources) Obesity, unspecified; Translations: [Obesity, unspecified] Onset: 04-18-2023 04-18-2023 Chronic Other nutritional; endocrine; and metabolic disorders (2 sources) Other obesity due to excess calories; Translations: [Other obesity due to excess calories] Onset: 11-02-2023 Chronic Other nutritional; endocrine; and metabolic disorders (2 sources) Body mass index (BMI) 34.0-34.9, adult; Translations: [Body mass index [BMI] 34.0-34.9, adult] Onset: 11-02-2023 Chronic Other and delivery including normal (20 sources) Single live ; Translations: [] Onset: 02-11-2021 04-18-2023 Episodic Other screening for suspected conditions (not mental disorders or infectious disease) (2 sources) Encounter for screening for Streptococcus B; Translations: [Encounter for screening for malignant neoplasm of cervix] Onset: 01-19-2021 Episodic Residual codes; unclassified (6 sources) H/O: previous delivery by vacuum extraction; Translations: [Personal history of other complications of , childbirth and the puerperium] 04-18-2023 Episodic Residual codes; unclassified (20 sources) Personal history of other complications of , childbirth and the puerperium; Translations: [Personal history of other genital system and obstetric disorders] Onset: 11-02-2023 04-18-2023 Episodic Residual codes; unclassified (1 source) 40 weeks gestation of ; Translations: [40 weeks gestation of ] Onset: 11-25-2023 Episodic Residual codes; unclassified (1 source) 37 weeks gestation of ; Translations: [37 weeks gestation of ] Onset: 11-02-2023 Episodic Residual codes; unclassified (1 source) 36 weeks gestation of ; Translations: [36 weeks gestation of ] Onset: 10-25-2023 Episodic Residual codes; unclassified (1 source) 35 weeks gestation of ; Translations: [35 weeks gestation of ] Onset: 10-18-2023 Episodic Unclassified (4 sources) Normal labor; Translations: [Active labor at term] 11-18-2023 Past or Other Problems Problem Classification Problem Date Documented Da te Episodic/Chronic Other complications of ; puerperium affecting management of mother (3 sources) Abnormality in heart rate and rhythm complicating labor and delivery; Translations: [Abnormality in heart rate and rhythm complicating labor and delivery] Onset: 02-11-2021 Episodic Residual codes; unclassified (1 source) 39 weeks gestation of ; Translations: [39 weeks gestation of ] Onset: 02-11-2021 Episodic Residual codes; unclassified (1 source) 34 weeks gestation of ; Translations: [34 weeks gestation of ] Onset: 10-06-2023 Episodic Residual codes; unclassified (1 source) 30 weeks gestation of ; Translations: [30 weeks gestation of ] Onset: 09-08-2023 Episodic Residual codes; unclassified (1 source) 27 weeks gestation of ; Translations: [27 weeks gestation of ] Onset: 08-24-2023 Episodic Residual codes; unclassified (1 source) 25 weeks gestation of ; Translations: [25 weeks gestation of ] Onset: 08-09-2023 Episodic Residual codes; unclassified (1 source) 13 weeks gestation of ; Translations: [13 weeks gestation of ] Onset: 06-15-2023 Episodic Results Test Name Value Interpretation Reference Range Facility .GFRon 06-27-2024 GFR >60 [facility] MAIN Comment on above: Result Comment: GFR Population mean for , Non- Americans Ages 20-29 = 116 mL/min/1.73 sq.m. Ages 30-39 = 107 mL/min/1.73 sq.m. Ages 40-49 = 99 mL/min/1.73 sq.m. Ages 50-59 = 93 mL/min/1.73 sq.m. Ages 60-69 = 85 mL/min/1.73 sq.m. Ages 70+ = 75 mL/min/1.73 sq.m. Chronic Kidney Disease: Less than 60 mL/min/1.73 square meters End Stage Renal Disease: Less than 15 mL/min/1.73 square meters Performed By: #### L IPID, GFR, CMP #### [place] [address] GFR Non- >60 [facility] MAIN Comment on above: Result Comment: GFR Population mean for , Non- Americans Ages 20-29 = 116 mL/min/1.73 sq.m. Ages 30-39 = 107 mL/min/1.73 sq.m. Ages 40-49 = 99 mL/min/1.73 sq.m. Ages 50-59 = 93 mL/min/1.73 sq.m. Ages 60-69 = 85 mL/min/1.73 sq.m. Ages 70+ = 75 mL/min/1.73 sq.m. Chronic Kidney Disease: Less than 60 mL/min/1.73 square meters End Stage Renal Disease: Less than 15 mL/min/1.73 square meters Performed By: #### L IPID, GFR, CMP #### [place] [id number] CMPon 06-27-2024 Albumin Level 4.0 G/dL Normal 3.2-4.8 [facility] MAIN Comment on above: Performed By: #### L IPID, GFR, CMP #### [place] [address] Albumin/Globulin [Mass ratio] 1.1 {ratio} Normal 0.9-1.6 [facility] MAIN Comment on above: Performed By: #### L IPID, GFR, CMP #### [place] [id number] ALP [Catalytic activity/Vol] 63 U/L Normal 38-126 [facility] MAIN Comment on above: Performed By: #### L IPID, GFR, CMP #### [place] [address] ALT [Catalytic activity/Vol] 17 U/L Normal 10-49 [facility] MAIN Comment on above: Performed By: #### L IPID, GFR, CMP #### [place] [id number] AST [Catalytic activity/Vol] 21 U/L Normal 8-34 [facility] MAIN Comment on above: Performed By: #### L IPID, GFR, CMP #### [place] [id number] Bili Total 0.50 mg/dL Normal 0.20-1.20 [facility] MAIN Comment on above: Result Comment: Use of this assay is not recommended for patients undergoing treatment with eltrombopag due to the potential for falsely elevated results. Performed By: #### L IPID, GFR, CMP #### [place] [id number] BUN/Creatinine Ratio 17.9 ratio Normal 10.0-22.0 [facility] MAIN Comment on above: Performed By: #### L IPID, GFR, CMP #### [place] [address] Calcium [Mass/Vol] 10.1 mg/dL Normal 8.7-10.4 [facility] MAIN Comment on above: Performed By: #### L IPID, GFR, CMP #### [place] [id number] Chloride [Moles/Vol] 109 mmol/L Normal 98-110 [facility] MAIN Comment on above: Performed By: #### L IPID, GFR, CMP #### [place] [id number] CO2 [Moles/Vol] 28 mmol/L Normal 22-32 [facility] MAIN Comment on above: Performed By: #### L IPID, GFR, CMP #### [place] [address] Creatinine [Mass/Vol] 0.95 mg/dL Normal 0.50-1.20 [facility] MAIN Comment on above: Result Comment: Test ing performed on [employer] Logic analyzer using enzymatic creatinine methodology. Performed By: #### L IPID, GFR, CMP #### [place] [address] Electrolyte Balance 4.0 mEq/L Normal 4.0-15.0 [facility] MAIN Comment on above: Performed By: #### L IPID, GFR, CMP #### [place] [id number] Globulin 3.7 G/dL Normal 1.5-3.8 [facility] MAIN Comment on above: Performed By: #### L IPID, GFR, CMP #### [place] [id number] Glucose [Mass/Vol] 82 mg/dL Normal 70-110 [facility] MAIN Comment on above: Performed By: #### L IPID, GFR, CMP #### [place] [address] Potassium [Moles/Vol] 5.0 mmol/L Normal 3.5-5.0 [facility] MAIN Comment on above: Performed By: #### L IPID, GFR, CMP #### [address] [address] Sodium [Moles/Vol] 141 mmol/L Normal 136-145 [facility] MAIN Comment on above: Performed By: #### L IPID, GFR, CMP #### [address] [address] Total Protein 7.7 G/dL Normal 5.7-8.2 [facility] MAIN Comment on above: Result Comment: No te - New Reference Range in effect 20 Performed By: #### L IPID, GFR, CMP #### [address] [address] Urea nitrogen [Mass/Vol] 17.0 mg/dL Normal 8.0-22.0 [facility] MAIN Comment on above: Performed By: #### L IPID, GFR, CMP #### [address] [address] LIPIDon 06-27-2024 Cholesterol [Mass/Vol] 160 mg/dL Normal 50-199 [facility] MAIN Comment on above: Result Comment: Chol esterol Reference Interval: Less than 200 Desirable 200-239 Borderline high risk 240 and above High risk Performed By: #### L IPID, GFR, CMP #### [address] [address] Cholesterol in HDL [Mass/Vol] 62 mg/dL High 40-59 [facility] MAIN Comment on above: Performed By: #### L IPID, GFR, CMP #### [address] [address] Cholesterol in LDL [Mass/Vol] 88 mg/dL Normal 0-129 [facility] MAIN Comment on above: Performed By: #### L IPID, GFR, CMP #### [address] [address] Triglyceride [Mass/Vol] 48 mg/dL Normal 3-149 [facility] MAIN Comment on above: Performed By: #### L IPID, GFR, CMP #### [place] [address] [place] [address] PAP I-G w/rfx hrHPV-Aptimaon 01-04-2024 ADEQ Comment Normal . [facility] Comment on above: Order Comment: Speci men Comment: [id number] Comment: Source.............CervixSpecimen Comment: No. of containers..01 ThinPrep Vial Result Comment: Sati sfactory for evaluation. Endocervical and/or squamous metaplastic cells (endocervical component) are present. Performed By: #### L 7400.0353 ####[facility] [address] [place], [address] COMM . Normal . [facility] Comment on above: Order Comment: Speci men Comment: [id number] Comment: Source.............CervixSpecimen Comment: No. of containers..01 ThinPrep Vial Performed By: #### L 7400.0353 ####[facility] [address] [place], [place], [id number] COMMENT Comment Normal . [facility] Comment on above: Order Comment: Speci men Comment: [id number] Comment: Source.............CervixSpecimen Comment: No. of containers..01 ThinPrep Vial Result Comment: This liquid based ThinPrep(R) pap test was screened with the use of an image guided system. Performed By: #### L 7400.0353 ####[facility] [address] [place], [place], [id number] DIAG Comment Normal . [facility] Comment on above: Order Comment: Speci men Comment: [id number] Comment: Source.............CervixSpecimen Comment: No. of containers..01 ThinPrep Vial Result Comment: NEGA TIVE FOR INTRAEPITHELIAL LESION OR MALIGNANCY. THIS SPECIMEN WAS RESCREENED PART OF OUR SUPERINTENDENT STATIONS PROGRAM. Performed By: #### L 7400.0353 ####[facility] [address] [place], [place], [id number] HPV RFLX Comment Normal . [facility] Comment on above: Order Comment: Speci men Comment: [id number] Comment: Source.............CervixSpecimen Comment: No. of containers..01 ThinPrep Vial Result Comment: The HPV DNA reflex criteria were not met with this specimen result therefore, no HPV testing was performed. Performed at: [facility] [address] [id number] Counter Tacker: Sanju Oseguera MD, Phone: [phone] Performed at: - Lab[address] [id number] Counter Tacker: Ama Macias MD, Phone: [phone] Performed By: #### L 7400.0353 ####[facility] [address] [place], [address] PAPSMR Comment Normal . [facility] Comment on above: Order Comment: Speci men Comment: [id number] Comment: Source.............CervixSpecimen Comment: No. of containers..01 ThinPrep Vial Result Comment: The Pap smear is a screening test designed to aid in the detection of premalignant and malignant conditions of the uterine cervix. It is not a diagnostic procedure and should not be used as the sole means of detecting cervical cancer. Both false-positive and false-negative reports do occur. Performed By: #### L 7400.0353 ####[facility] [address] [place], [place], [id number] PERFORM Comment Normal . [facility] Comment on above: Order Comment: Speci men Comment: [id number] Comment: Source.............CervixSpecimen Comment: No. of containers..01 ThinPrep Vial Result Comment: Veda Esqueda Utilities And Maintenance Supervisor (ASCP) Performed By: #### L 7400.0353 ####[facility] [address] [place], [address] QC REV Comment Normal . [facility] Comment on above: Order Comment: Speci men Comment: [id number] Comment: Source.............CervixSpecimen Comment: No. of containers..01 ThinPrep Vial Result Comment: Rosanna Hawkins Utilities And Maintenance Supervisor (ASCP) Performed By: #### L 7400.0353 ####[facility] [address] [place], [place], [id number] Cervical or vagninal specime n microscopic examination by cytology stain (reported asOrdered By: Bella Lopez on 12-28-2023 Cytology report Cyto stain Doc (Cvx/Vag) Comment . [facility] Comment on above: The Pap smear is a s creening test designed to aid in thedetection of premalignant and malignant conditions of theuterine cervix. It is not a diagnostic procedure andshould not be used as the sole means of detecting cervicalcancer. Both false-positive and false-negative reports dooccur. Laboratory - CytologyOrdered By: Bella Lopez on 12-28-2023 [employer] Cyto stain Nom (Cvx/Vag) [ID] Comment . [facility] Comment on above: Gustavo Housete chnologist (ASCP) Laboratory - Miscellaneous t estsOrdered By: Bella Lopez on 12-28-2023 Service comment (Unsp spec) [Interp] . . [facility] No Panel InformationOrdered By: Bella Lopez on 12-28-2023 Human Papillomavirus Screen Comment . [facility] Comment on above: The HPV DNA reflex c riteria were not met with this specimenresult therefore, no HPV testing was performed.Performed at: [facility] Hist[address] [id number] Director: Sanju Oseguera MD, Phone: [phone] at: [facility] Lab07 [address] StreetJohnson [place]aves [place] [id number] Director: Ama Macias MD, Phone: [phone] Pap Smear QC Review Comment . [facility] Comment on above: Rosanna Hawkins Cytot echnologist (ASCP) Repair Welder Office Visit Reporton 12-28-2023 Repair Welder Office Visit Report [facility] [address] [place] [address] OFFICE VISIT Date of Service: 12/28/23 MR#: [id number] Acct: [id number] Name: MITUL MCDANIEL Rep #: [id number] : 1995 Provider: MYRIAM gorman Age/Sex: 28/F Location: [facility] Status: Signed Intake Vital Signs 11/18/23 12:56 12/28/23 10:42 12/28/23 10:49 Height 5 ft 9 in 5 ft 9 in 5 ft 9 in Weight: 234 lb BMI 34.5 BP 120/76 Intake Visit Reasons: visit (obstetrics) Chief Complaint: 6 Week PP Etl Tester Required: No Is patient in pain?: No Allergies No Known Allergies Allergy (Verified 12/28/23 10:41) Medications docosahexaenoic acid 200 mg capsule ( DHA) mg PO 04/18/23 [History Confirmed 12/28/23] sertraline 50 mg tablet 50 mg PO DAILY 12/28/23 [History Confirmed 12/28/23] Last Menstrual Period: 11/18/23 : Yes PFSH Medical History Vaginal delivery Family History Father Hodgkins lymphoma Social History current occupational status: employed 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 Date Name GA/Weeks Outcome Route Bth Weight Infant Gen Labor Lgth Anesthesia Del Locatn Provider FOB 02/12/21 [place] 39 live - full term vacuum 7lbs 3oz P[place] D r. Vaccariello Dinh 11/18/23 [place] 40 live - full term Female epidural WC RADHA Dinh Delivery Date: 02/12/21 Last Updated by: Alison Reynolds No issues during or delivery other than vacuum. Delivery Date: 11/18/23 Last Updated by: Viviana Green see problem list for complications, and ial vera oliverd. Depression Screen PHQ-2/9 PHQ-2 Over the last 2 weeks, how often have you been bothered by any of the following problems? 1. Little interest or pleasure in doing things: not at all 2. Feeling down, depressed, or hopeless: not at all Total score: 0 Post HPI Routine Follow-Up: Details: MITUL MCDANIEL is a 28 year old who presents for her post visit. Doing well now, PCP started on sertraline 1 week pp. Baby Jeison doing well, Infant Feeding: Breast Menses resumed: No [place] since delivery: No Emotional Support: Yes Last Pap:: >3 yr ROS Card Denies chest pain and Denies dyspnea Resp Denies dyspnea GI Denies bloating and Denies change in bowel habits Denies difficulty voiding Skin/Breast Denies breast mass, Denies breast pain and Denies breast skin changes Exam Const General: cooperative, no acute distress and well developed Nutritional Appearance: average body habitus Orientation: oriented x3 Chest Chest palpation inspection: abnormal inspection of the chest Breast inspection: normal inspection of the breasts Breast palpation: normal palpation of the breasts, normal palpation of the axillae and no axillary lymphadenopathy GI Palpation: soft, no masses and nontender General: bladder normal to palpation External Female Exam: normal external appearance and normal appearance of the urethra Urethra: normal appearance of the urethra Speculum Exam - Vagina: normal appearance of the vagina and normal vaginal discharge Speculum Exam - Cervix: normal appearance of the cervix Bimanual Exam- Vagina Uterus: normal bimanual exam, uterine size normal, bladder normal to palpation, uterine shape normal, uterine mobility normal and non-tender Bimanual Exam- Adnexa, other: normal adnexae, no masses, normal and non-tender Pelvic Support: normal Coding Level of Care Code No Charge Diagnoses Routine Follow-Up Z39.2 Assessment and Plan Assessment and Plan (1) Routine Follow-Up: Orders: Orders PAP I-G w/rfx hrHPV-Aptima Today Z12.4 - Encounter for screening for malignant neoplasm of cervix Plan Cervical cancer screening: thin prep pap with reflex HPV Contraceptive plans: condoms Complications: continue sertraline, call if sx return Follow up for annual exams or sooner if indicated. 04/ (more content not included)... Normal [facility] Thin prep Papanicolaou smear with manual screeningOrdered By: Bella Lopez on 12-28-2023 Thin prep Papanicolaou smear with manual screening Comment . [facility] Comment on above: NEGATIVE FOR INTRAEP ITHELIAL LESION OR MALIGNANCY.THIS SPECIMEN WAS RESCREENED PART OF OUR SUPERINTENDENT STATIONS PROGRAM. This liquid based Th inPrep(R) pap test was screened withthe use of an image guided system. Absolute lymphocyte countOrd ered By: Gail Jackson on 11-18-2023 Lymphocytes Auto (Unsp spec) [#/Vol] 2.52 10*3/uL 0.83-4.51 [facility] Automated lymphocyte count a s percentage of total leukocytesOrdered By: Gail Jackson on 11-18-2023 Lymphocytes/100 WBC Auto (Unsp spec) 15.3 % 19-41 [facility] Basophil percentageOrdered B y: Gail Jackson on 11-18-2023 Basophils/100 WBC (Bld) 0.4 % 0-[address] [facility] Eosinophils/100 WBC (Bld) 0.4 % 0-5 [facility] Hemoglobin (Bld) [Mass/Vol] 11.9 g/dL 12.0-15.0 [facility] Monocytes/100 WBC (Bld) 5.5 % 0-[address] [facility] Neutrophils (Bld) [#/Vol] 12.9 10*3/uL 2.0-7.7 [facility] Neutrophils/100 WBC (Bld) 78.0 % 47-70 [facility] WBC (Bld) [#/Vol] 16.5 10*3/uL 4.4-11.0 [facility] CBC W/Diff, Automatedon 03-0 8-2023 Absolute Lymph 2.52 X10 3/uL Normal 0.83-4.51 [facility] Comment on above: Performed By: #### L 100.0100, BTS #### [facility] [address] [place], [address] Absolute Neut 12.9 X10 3/uL High 2.0-7.7 [facility] Comment on above: Performed By: #### L 100.0100, BTS #### [facility] [address] [place], [address] Basophils/100 WBC (Bld) 0.4 % Normal 0-[address] [facility] Comment on above: Performed By: #### L 100.0100, BTS #### [facility] [address] [place], [address] Eosinophils/100 WBC (Bld) 0.4 % Normal 0-5 [facility] Comment on above: Performed By: #### L 100.0100, BTS #### [facility] [address] [place], [address] Erythrocyte distribution width (RBC) [Ratio] 13.7 % Normal 11.6-14.6 [facility] Comment on above: Performed By: #### L 100.0100, BTS #### [facility] [address] [place], [address] Hematocrit (Bld) [Volume fraction] 37.1 % Normal 37-47 [facility] Comment on above: Performed By: #### L 100.0100, BTS #### [facility] [address] [place], [address] Hemoglobin (Bld) [Mass/Vol] 11.9 g/dL Low 12.0-15.0 [facility] Comment on above: Performed By: #### L 100.0100, BTS #### [facility] [address] [place], [address] IG% 0.400 Normal 0.0-0.9 [facility] Comment on above: Result Comment: IG% - Immature Granulocytes (promyelocytes, myelocytes and metamyelocytes) > 1% indicates that a LEFT SHIFT is Present. Performed By: #### L 100.0100, BTS #### [facility] [address] [place], [address] Lymphocytes/100 WBC (Bld) 15.3 % Low 19-41 [facility] Comment on above: Performed By: #### L 100.0100, BTS #### [facility] [address] [place], [address] MCH (RBC) [Entitic mass] 28.1 pg Normal 27.0-32.0 [facility] Comment on above: Performed By: #### L 100.0100, BTS #### [facility] [address] [place], [address] MCHC (RBC) [Mass/Vol] 32.1 g/dL Normal 32-36 [facility] Comment on above: Performed By: #### L 100.0100, BTS #### [facility] [address] [place], [address] MCV (RBC) [Entitic vol] 87.7 fL Normal 81-[address] [facility] Comment on above: Performed By: #### L 100.0100, BTS #### [facility] [address] [place], [address] Monocytes/100 WBC (Bld) 5.5 % Normal 0-[address] [facility] Comment on above: Performed By: #### L 100.0100, BTS #### [facility] [address] [place], [address] Neutrophils/100 WBC (Bld) 78.0 % High 47-70 [facility] Comment on above: Performed By: #### L 100.0100, BTS #### [facility] [address] [place], [address] Nucleated RBC (Bld) [#/Vol] 0 10*3/uL Normal 0-5 [facility] Comment on above: Performed By: #### L 100.0100, BTS #### [facility] [address] [place], [address] Platelet mean volume (Bld) [Entitic vol] 10.5 fL Normal 6.2-12.0 [facility] Comment on above: Performed By: #### L 100.0100, BTS #### [facility] [address] [place], [address] Platelets (Bld) [#/Vol] 251 10*3/uL Normal 150-450 [facility] Comment on above: Performed By: #### L 100.0100, BTS #### [facility] [address] [place], [address] RBC (Bld) [#/Vol] 4.23 10*6/uL Normal 4.2-5.4 [facility] Comment on above: Performed By: #### L 100.0100, BTS #### [facility] [address] [place], [address] RDW SD 43.5 fl Normal 35.1-43.9 [facility] Comment on above: Performed By: #### L 100.0100, BTS #### [facility] [address] [place], [place], [address] WBC (Bld) [#/Vol] 16.5 10*3/uL High 4.4-11.0 [facility] Comment on above: Performed By: #### L 100.0100, BTS #### [facility] [address] [place], [place], [id number] Determination of erythrocyte mean corpuscular volume (MCV)Ordered By: Gail Jackson on 11-18-2023 MCV (RBC) [Entitic vol] 87.7 fL 81-[address] [facility] Discharge Instructionon Discharge Instruction [facility] System Medical Records Department [address] [place] [address] Instructions for Home/Discharge Instructions 11/18/232057 MR#: [id number] Acct: [id number] Name: MITUL MCDANIEL Rep #: [id number] : 1995 28 From: Gail Jackson MD PCP: Angela Pond PA-C Status:ADM IN Discharge Instructions Diet Discharge Diet: No restrictions Activity Discharge Activity: Return to Normal Activity, May Not Drive (while taking narcotic pain medications.) and May Shower May resume sexual activity in: 4-6 weeks Dressing / Incision Call your doctor if your incision/area has: Continuous Slow Oozing, Sudden Increased Bleeding, Increased Pain/ Swelling, Increased Redness and Foul Smelling Discharge Follow Up Care Please Follow Up With: Gail Jackson MD When: Call [phone] to make an appointment with your doctor in 6 weeks. If you had elevated blood pressure or 4th degree laceration, you will need to be seen in 2 weeks. Test Results: Test results from this visit will be discussed in further detail at your follow-up appointment, if applicable. Discharge Plan Admission Admit Date/Time: 11/18/23 12:44 Attending Provider: Gail Jackson Primary Care Provider: Angela Pond Discharge Orders/Prescriptions Prescriptions: No Action DHA 200 mg capsule PO Referrals / Follow Up: Angela Pond PA-C [Primary Care Provider] - 11/18/232057 Gail Jackson MD CC: TARIQ Pond Signed Normal [facility] Erythrocyte distribution wid th ratioOrdered By: Gail Jackson on 11-18-2023 Erythrocyte distribution width (RBC) [Ratio] 13.7 % 11.6-14.6 [facility] Erythrocyte distribution wid th standard deviationOrdered By: Gail Jackson on 11-18-2023 Erythrocyte distribution width (RBC) [Entitic vol] 43.5 fL 35.1-43.9 [facility] H AND P Exam - OB/GYNon H&P Exam - SYSTEMS INTEGRATION MANAGER [facility] Medical Records Department [address] [place] [address] H P Exam - SYSTEMS INTEGRATION MANAGER 11/18/232047 MR#: [id number] Acct: [id number] Name: MITUL MCDANIEL Rep #: [id number] : 1995 28 From: Gail Jackson MD PCP: Angela Pond PA-C Status:ADM IN Location: [id number] HPI - General General Date of Admission: 11/18/23 HPI Narrative MITUL MCDANIEL, is a 28 F who presents IAL with regular ctx, 4-5 cm dilated no vb lof Maternal Data Information SIVAKUMAR Calculator Estimated Delivery Date Method Current WG Current Estimate 11/17/23 LMP (Certain) 40w 1d PFSH PFSH Home Medications docosahexaenoic acid 200 mg capsule ( DHA) mg PO 04/18/23 [History Last Taken 11/17/23 22:00] Allergy/AdvReac Type Severity Reaction Status Date / Time No Known Allergies Allergy Verified 11/18/23 12:54 Family History Father Hodgkins lymphoma Social History current occupational status: employed 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 Date Name GA/Weeks Outcome Route Bth Weight Gen Labor Lgth Anesthesia Del Locatn Provider FOB 02/12/21 [place] 39 live - full term vacuum 7lbs 3oz Pomerejavier mott. Sudhirarnaldorichelle Tao Delivery Date: 02/12/21 Last Updated by: Alison [place] No issues during or delivery other than vacuum. Visit Details Expected Delivery Route/Plan Labor Preferences- CB/BF classes: [] labor support person: [] labor intervention preferences: epidural pain management options preferred: [] cut cord/dad catch: [] : [] PP control planned: [] discussed possible routes of delivery and associated risks: [] special requests: [] Plans Covid status: [] Flu vaccine: declined Tdap vaccine: declined Rhogam: na LARC form signed: [] Problem list reviewed and updated with the most current plan of care details and appropriate orders placed. Relevant counseling for the gestational age provided. Continue routine care and follow up unless otherwise noted in visit notes/problem list details OB Flowsheet Initial Weight: 236 lb Date -???-???-???-???-??? -???-???-???-???-??? -???-???- EGA Weight BP Urine Prot -???-???-???-???-??? -???-???-???-???-??? -???-???- Glucose FHR FuHt Pres Dilation -???-???-???-???-??? -???-???-???-???-??? -???-???- Effaced St Visit Note 04/18/23 -???-???-???-???-??? -???-???-???-???-??? -???-???- 9w 4d 236 lb (+0 oz) 120/78 -???-???-???-???-??? -???-???-???-???-??? -???-???- 169 -???-???-???-???-??? -???-???-???-???-??? -???-???- LC- 2.7CRL c on with LMP. SIVAKUMAR 11/17/2023.reviewed with SM. BMI >30 early glucose. considering NIPT. 05/18/23 -???-???-???-???-??? -???-???-???-???-??? -???-???- 13w 6d 233 lb 2 oz (-2 lb 14 oz) 120/77 Negative -???-???-???-???-??? -???-???-???-???-??? -???-???- Negative 144 -???-???-???-???-??? -???-???-???-???-??? -???-???- JV- decided against nipt JV- decided against nipt. nausea i s improving but not gone. they are going on [place] to [place] 06/15/23 -???-???-???-???-??? -???-???-???-???-??? -???-???- 17w 6d 233 lb 6 oz (-2 lb 10 oz) 120/78 Negative -???-???-???-???-??? -???-???-???-???-??? -???-???- Negative 146 -???-???-???-???-??? -???-???-???-???-??? -???-???- MH-No VB. De clines NIPT and flu vaccine. Still using zofran for nausea. 07/12/23 -???-???-???-???-??? -???-???-???-???-??? -???-???- 21w 5d 240 lb (+4 lb) 129/82 Negative -???-???-???-???-??? -???-???-???-???-??? -???-???- Negative 141 -???-???-???-???-??? -???-???-???-???-??? -???-???- JV- nausea s till present and is taking zofran frequently. This is causing constipation which is now making her hemorrhoids flare up. will switch to reglan an recommend colace + miralax. anatomy scan was not complete the first time but had her follow up scan yesterday. results are pending but states they were complete this time. 08/09/23 -???-???-???-???-??? -???-???-???-???-??? -???-???- 25w 5d 240 lb (+4 lb) 112/78 Negative -???-???-???-???-??? -???-???-???-???-??? -???-???- Negative 150 26 -???-???-???-? (more content not included)... Normal [facility] Hematocrit Auto (Bld) [Volum e fraction]Ordered By: Gail Jackson on 11-18-2023 Hematocrit (Bld) [Volume fraction] 37.1 % 37-47 [facility] Immature granulocytes/100 WB C Auto (Bld)Ordered By: Gail Jackson on 11-18-2023 Immature granulocytes/100 WBC (Bld) 0.400 % 0.0-0.9 [facility] Comment on above: IG% - Immature Granu locytes (promyelocytes, myelocytes and metamyelocytes) > 1% indicates that a LEFT SHIFT is Present. L509.8000on 11-18-2023 Syphilis Abs Non-Reactive Normal [facility] Comment on above: Performed By: #### L 509.8000 ####[facility] [id number] [place], [address] Laboratory - Hematology and Cell countsOrdered By: Gail Jackson on 11-18-2023 MCH (RBC) [Entitic mass] 28.1 pg 27.0-32.0 [facility] MCHC (RBC) [Mass/Vol] 32.1 g/dL 32-36 [facility] Nucleated RBC/100 WBC (Bld) [Ratio] 0 % 0-5 [facility] Platelet mean volume (Bld) [Entitic vol] 10.5 fL 6.2-12.0 [facility] Platelets (Bld) [#/Vol] 251 10*3/uL 150-450 [facility] Operative Reporton 4 Operative Report [facility] Medical Records Department [address] [place] [address] Operative Report 11/18/232055 MR#: [id number] Acct: [id number] Name: MITUL MCDANIEL Rep #: [id number] : 1995 28 From: Gail Jackson MD PCP: Angela Pond PA-C Status:ADM IN Location: [id number] Assessment Plan (1) Active labor at term: (2) Positive GBS test: COMMENT: treat in labor (3) Nausea vomiting: QUALIFIERS: Vomiting type: unspecified Qualified Code(s): R11.2 - Nausea with vomiting, unspecified COMMENT: vitamin b 6 and unisom adding zofran/controlling (4) Supervision of high risk in first trimester: COMMENT: PRR SIVAKUMAR 3/7/24 girl JOSE Phelany. : Dinh (5) : QUALIFIERS: Weeks of gestation: 40 weeks Qualified Code(s): Z3A.40 - 40 weeks gestation of COMMENT: considering genetic and carrier screen. (6) Obesity: QUALIFIERS: Obesity type: due to excess calories Obesity classification: adult class 1 (BMI 30 - 34.9) Serious obesity comorbidity presence: without serious comorbidity Body mass index: BMI 34.0-34.9 Qualified Code(s): E66.09 - Other obesity due to excess calories; Z68.34 - Body mass index [BMI] 34.0-34.9, adult COMMENT: 1hr GTT given at NOB- passed. healthy weight gain, activity in . (7) Depression with anxiety: (8) Vaginal delivery: COMMENT: VERA IAL girl 40 Maternal Data Information SIVAKUMAR Calculator Estimated Delivery Date Method Current WG Current Estimate 11/17/23 LMP (Certain) 40w 1d Vaginal Delivery Operative Information Date of Procedure: 11/18/23 Pre-Operative Diagnosis: see a/p diagnoses Post-Operative Diagnosis: same Surgery / Procedure Performed: Spontaneous Vaginal Delivery Type of Anesthesia: Epidural Special Medications: none Estimated Blood Loss: 200 Fluids Replaced: crystalloid Findings Description of Procedure: Patient began pushing and delivered the head in the VERN presentation. The head was delivered atraumatically and a loose nuchal cord ???1 was identified and the delivered through without complication. The anterior and posterior shoulders delivered without complication followed by the rest of the and the was placed on the maternal abdomen. Delayed cord clamping was employed for approximately 60 seconds. Cord was clamped and cut and gentle traction was applied to the cord and the placenta delivered spontaneously immediately following it was noted to be intact with three-vessel cord. The perineum and vagina were inspected and noted to have a first degree perineal laceration which was repaired in the usual fashion with 3-0 vicryl rapide. . EBL was 200 cc. Patient and infant tolerated delivery well. Amniotic Fluid Description: Clear Placental Delivery Description: Spontaneous Placenta Disposition: [facility] Cord Vessel Description: 3 Vessels Cord Entanglement: Around neck x 1, loose Delayed Cord Clamping: Yes Post Vaginal Delivery Medications Given After Delivery: IV Pitocin Episiotomy Description: None Complication Complications: None Procedures Urinary/Genital 52xxx-59xxx: [id number] Vaginal Delivery [facility] 11/18/232057 Cosigner Signature (if applicable): CC: TARIQ Pond; Dr. Gail Jackson MD Signed ADDENDUM by Dr. Gail Jackson MD on 11/18/23 at 2057 Addendum 11/18/232057 Cosigner Signature (if applicable): cc: TARIQ Pond; Dr. Gail Jackson MD * Signed Normal [facility] RBC Auto (Bld) [#/Vol]Ordere d By: Gail Jackson on 11-18-2023 RBC (Bld) [#/Vol] 4.23 10*6/uL 4.2-5.4 [facility] Serum Treponema species anti body detectionOrdered By: Gail Jackson on 11-18-2023 Treponema sp Ab Ql (S) Non-Reactive [facility] Type AND Screenon 11-18-2023 ABO and Rh group Nom (Bld) Blood group O Rh(D) positive Normal [facility] Comment on above: Order Comment: Labor Performed By: #### L 100.0100, BTS #### [facility] [address] [place], [place], [address] Laboratory - Chemistry and C hemistry - challengeon 11-17-2023 Glucose Ql (U) Negative [facility] Laboratory - Urinalysison Protein Ql (U) Negative [facility] Repair Welder Office Visit Reporton 11-17-2023 Repair Welder Office Visit Report [facility] [address] [place] [address] OFFICE VISIT Date of Service: 11/17/23 MR#: [id number] Acct: [id number] Name: MITUL MCDANIEL Rep #: [id number] : 1995 Provider: Dr. Gail olsen MD Age/Sex: 28/F Location: [facility] Status: Signed Intake Vital Signs 10/18/23 09:01 11/10/23 16:05 11/17/23 15:54 11/17/23 15:56 11/17/23 16:25 Height 5 ft 9 in 5 ft 9 in 5 ft 9 in 5 ft 9 in Weight: 354 lb 254 lb BMI 52.2 BP 128/84 H Intake Visit Reasons: 40 WK OB *per SM* Etl Tester Required: No Is patient in pain?: No Allergies No Known Allergies Allergy (Verified 11/18/23 12:54) Medications docosahexaenoic acid 200 mg capsule ( DHA) mg PO 04/18/23 [History Confirmed 11/17/23] Last Menstrual Period: 02/10/23 Zika: Zika virus screening: Negative : No PFSH PFSH Medical History (Updated 11/23/23 @ 13:03 by Viviana Green) Vaginal delivery Family History Father Hodgkins lymphoma Social History current occupational status: employed 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 Date Name GA/Weeks Outcome Route Bth Weight Gen Labor Lgth Anesthesia Del Locatn Provider FOB 02/12/21 [place] 39 live - full term vacuum 7lbs 3oz Pomerene D r. Vaccariello Dinh 11/18/23 [place] 40 live - full term Female epidural [facility] RADHA Dinh Delivery Date: 02/12/21 Last Updated by: Alison [place] No issues during or delivery other than vacuum. Delivery Date: 11/18/23 Last Updated by: Viviana Green see problem list for complications, and ial sm . HPI 40 WK OB *per * Details: MITUL MCDANIEL is a 28 year old who presents for routine OB visit. OB Visit SIVAKUMAR Calculator Estimated Delivery Date Method Current WG Expected Delivery Route/Plan Labor Preferences- CB/BF classes: [] labor support person: [] labor intervention preferences: epidural pain management options preferred: [] cut cord/dad catch: [] : [] PP control planned: [] discussed possible routes of delivery and associated risks: [] special requests: [] Specific Issue/Plans Covid status: [] Flu vaccine: declined Tdap vaccine: declined Rhogam: na LARC form signed: [] Problem list reviewed and updated with the most current plan of care details and appropriate orders placed. Relevant counseling for the gestational age provided. Continue routine care and follow up unless otherwise noted in visit notes/problem list details Initial Weight: 236 lb Date -???-???-???-???-??? -???-???-???-???-??? -???-???- EGA Weight BP Urine Prot -???-???-???-???-??? -???-???-???-???-??? -???-???- Glucose FHR FuHt Pres Dilation -???-???-???-???-??? -???-???-???-???-??? -???-???- Effaced St Visit Note 04/18/23 -???-???-???-???-??? -???-???-???-???-??? -???-???- 9w 4d 236 lb (+0 oz) 120/78 -???-???-???-???-??? -???-???-???-???-??? -???-???- 169 -???-???-???-???-??? -???-???-???-???-??? -???-???- LC- 2.7CRL c on with LMP. SIVAKUMAR 11/17/2023.reviewed with SM. BMI >30 early glucose. considering NIPT. 05/18/23 -???-???-???-???-??? -???-???-???-???-??? -???-???- 13w 6d 233 lb 2 oz (-2 lb 14 oz) 120/77 Negative -???-???-???-???-??? -???-???-???-???-??? -???-???- Negative 144 -???-???-???-???-??? -???-???-???-???-??? -???-???- JV- decided against nipt JV- decided against nipt. nausea i s improving but not gone. they are going [place] 06/15/23 -???-???-???-???-??? -???-???-???-???-??? -???-???- 17w 6d 233 lb 6 oz (-2 lb 10 oz) 120/78 Negative -???-???-???-???-??? -???-???-???-???-??? -???-???- Negative 146 -???-???-???-???-??? -???-???-???-???-??? -???-???- -No VB. De clines NIPT and flu vaccine. Still using zofran for nausea. 07/12/23 -???-???-???-???-??? -???-???-???-???-??? -???-???- 21w 5d 240 lb (+4 lb) 129/82 Negative -???-???-???-???-??? -???-???-???-???-??? -???-???- Negative 141 -???-???-???-???-??? -???-???-???-???-??? -?? (more content not included)... Normal [facility] Laboratory - Chemistry and C hemistry - challengeon 11-10-2023 Glucose Ql (U) Negative [facility] Laboratory - Urinalysison Protein Ql (U) Negative [facility] Repair Welder Office Visit Reporton 11-10-2023 Repair Welder Office Visit Report [facility] [address] [place] [address] OFFICE VISIT Date of Service: 11/10/23 MR#: [id number] Acct: [id number] Name: MITUL MCDANIEL Rep #: [id number] : 1995 Provider: Dr. Gail olsen MD Age/Sex: 28/F Location: [facility] Status: Signed Intake Vital Signs 10/18/23 09:01 11/02/23 15:11 11/10/23 16:02 11/10/23 16:05 Height 5 ft 9 in 5 ft 9 in 5 ft 9 in 5 ft 9 in Weight: 254 lb BMI 37.5 BP 130/83 H Intake Visit Reasons: 39 WK OB Etl Tester Required: No Is patient in pain?: No Allergies No Known Allergies Allergy (Verified 11/10/23 16:02) Medications docosahexaenoic acid 200 mg capsule ( DHA) mg PO 04/18/23 [History Confirmed 11/10/23] ondansetron 4 mg disintegrating tablet 4 mg PO Q8H PRN nausea and vomiting #30 tabs 07/03/23 [Rx Confirmed 11/10/23] metoclopramide HCl 10 mg tablet (Reglan) 10 mg PO Q6H PRN nausea and vomiting #45 tabs 07/12/23 [Rx Confirmed 11/10/23] Last Menstrual Period: 02/10/23 Zika: Zika virus screening: Negative : No PFSH PFSH Family History Father Hodgkins lymphoma Social History current occupational status: employed 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 Date Name GA/Weeks Outcome Route Bth Weight Infant Gen Labor Lgth Anesthesia Del Locatn Provider FOB 02/12/21 [place] 39 live - full term vacuum 7lbs 3oz Pomerene D r. Vaccariello Dinh Delivery Date: 02/12/21 Last Updated by: Alison Reynolds No issues during or delivery other than vacuum. HPI 39 WK OB Details: MITUL MCDANIEL is a 28 year old who presents for routine OB visit. OB Visit SIVAKUMAR Calculator Estimated Delivery Date Method Current WG Current Estimate 11/17/23 LMP (Certain) 39w 0d Expected Delivery Route/Plan Labor Preferences- CB/BF classes: [] labor support person: [] labor intervention preferences: epidural pain management options preferred: [] cut cord/dad catch: [] : [] PP control planned: [] discussed possible routes of delivery and associated risks: [] special requests: [] Specific Issue/Plans Covid status: [] Flu vaccine: declined Tdap vaccine: declined Rhogam: na LARC form signed: [] Problem list reviewed and updated with the most current plan of care details and appropriate orders placed. Relevant counseling for the gestational age provided. Continue routine care and follow up unless otherwise noted in visit notes/problem list details Initial Weight: 236 lb Date -???-???-???-???-??? -???-???-???-???-??? -???-???- EGA Weight BP Urine Prot -???-???-???-???-??? -???-???-???-???-??? -???-???- Glucose FHR FuHt Pres Dilation -???-???-???-???-??? -???-???-???-???-??? -???-???- Effaced St Visit Note 04/18/23 -???-???-???-???-??? -???-???-???-???-??? -???-???- 9w 4d 236 lb (+0 oz) 120/78 -???-???-???-???-??? -???-???-???-???-??? -???-???- 169 -???-???-???-???-??? -???-???-???-???-??? -???-???- LC- 2.7CRL c on with LMP. SIVAKUMAR 11/17/2023.reviewed with SM. BMI >30 early glucose. considering NIPT. 05/18/23 -???-???-???-???-??? -???-???-???-???-??? -???-???- 13w 6d 233 lb 2 oz (-2 lb 14 oz) 120/77 Negative -???-???-???-???-??? -???-???-???-???-??? -???-???- Negative 144 -???-???-???-???-??? -???-???-???-???-??? -???-???- JV- decided against nipt JV- decided against nipt. nausea i s improving but not gone. they are going [place] 06/15/23 -???-???-???-???-??? -???-???-???-???-??? -???-???- 17w 6d 233 lb 6 oz (-2 lb 10 oz) 120/78 Negative -???-???-???-???-??? -???-???-???-???-??? -???-???- Negative 146 -???-???-???-???-??? -???-???-???-???-??? -???-???- -No VB. De clines NIPT and flu vaccine. Still using zofran for nausea. 07/12/23 -???-???-???-???-??? -???-???-???-???-??? -???-???- 21w 5d 240 lb (+4 lb) 129/82 Negative -???-???-???-???-??? -???-???-???-???-??? -???-???- Negative 141 -???-???-???-???-??? -???-???-???-???-??? -???-???- JV- nausea s till present and is taking zofr (more content not included)... Normal [facility] Laboratory - Chemistry and C hemistry - challengeon 11-02-2023 Glucose Ql (U) Negative [facility] Laboratory - Urinalysison Protein Ql (U) Negative [facility] Repair Welder Office Visit Reporton 11-02-2023 Repair Welder Office Visit Report [facility] [address] [place] [address] OFFICE VISIT Date of Service: 11/02/23 MR#: [id number] Acct: [id number] Name: MITUL MCDANIEL Rep #: [id number] : 1995 Provider: Dr. Indigo Vallejo DO Age/Sex: 28/F Location: [facility] Status: Signed Intake Vital Signs 10/18/23 09:01 10/25/23 14:26 11/02/23 15:10 11/02/23 15:11 Height 5 ft 9 in 5 ft 9 in 5 ft 9 in 5 ft 9 in Weight: 251 lb 2 oz BMI 37.0 BP 120/82 H Intake Visit Reasons: 38 WK OB Etl Tester Required: No Is patient in pain?: No Allergies No Known Allergies Allergy (Verified 11/02/23 15:09) Medications docosahexaenoic acid 200 mg capsule ( DHA) mg PO 04/18/23 [History Confirmed 11/02/23] ondansetron 4 mg disintegrating tablet 4 mg PO Q8H PRN nausea and vomiting #30 tabs 07/03/23 [Rx Confirmed 11/02/23] metoclopramide HCl 10 mg tablet (Reglan) 10 mg PO Q6H PRN nausea and vomiting #45 tabs 07/12/23 [Rx Confirmed 11/02/23] Last Menstrual Period: 02/10/23 Zika: Zika virus screening: Negative : No PFSH PFSH Family History Father Hodgkins lymphoma Social History current occupational status: employed 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 Date Name GA/Weeks Outcome Route Bth Weight Gen Labor Lgth Anesthesia Del Locatn Provider FOB 02/12/21 [place] 39 live - full term vacuum 7lbs 3oz Pomerene Gloria payton German Tao Delivery Date: 02/12/21 Last Updated by: Alison Reynolds No issues during or delivery other than vacuum. HPI 38 WK OB Details: MITUL MCDANIEL is a 28 year old who presents for routine OB visit. OB Visit SIVAKUMAR Calculator Estimated Delivery Date Method Current WG Current Estimate 11/17/23 LMP (Certain) 37w 6d Expected Delivery Route/Plan Labor Preferences- CB/BF classes: [] labor support person: [] labor intervention preferences: epidural pain management options preferred: [] cut cord/dad catch: [] : [] PP control planned: [] discussed possible routes of delivery and associated risks: [] special requests: [] Specific Issue/Plans Covid status: [] Flu vaccine: declined Tdap vaccine: declined Rhogam: na LARC form signed: [] Problem list reviewed and updated with the most current plan of care details and appropriate orders placed. Relevant counseling for the gestational age provided. Continue routine care and follow up unless otherwise noted in visit notes/problem list details Initial Weight: 236 lb Date -???-???-???-???-??? -???-???-???-???-??? -???-???- EGA Weight BP Urine Prot -???-???-???-???-??? -???-???-???-???-??? -???-???- Glucose FHR FuHt Pres Dilation -???-???-???-???-??? -???-???-???-???-??? -???-???- Effaced St Visit Note 04/18/23 -???-???-???-???-??? -???-???-???-???-??? -???-???- 9w 4d 236 lb (+0 oz) 120/78 -???-???-???-???-??? -???-???-???-???-??? -???-???- 169 -???-???-???-???-??? -???-???-???-???-??? -???-???- LC- 2.7CRL c on with LMP. SIVAKUMAR 11/17/2023.reviewed with SM. BMI >30 early glucose. considering NIPT. 05/18/23 -???-???-???-???-??? -???-???-???-???-??? -???-???- 13w 6d 233 lb 2 oz (-2 lb 14 oz) 120/77 Negative -???-???-???-???-??? -???-???-???-???-??? -???-???- Negative 144 -???-???-???-???-??? -???-???-???-???-??? -???-???- JV- decided against nipt JV- decided against nipt. nausea i s improving but not gone. they are going [place] 06/15/23 -???-???-???-???-??? -???-???-???-???-??? -???-???- 17w 6d 233 lb 6 oz (-2 lb 10 oz) 120/78 Negative -???-???-???-???-??? -???-???-???-???-??? -???-???- Negative 146 -???-???-???-???-??? -???-???-???-???-??? -???-???- MH-No VB. De clines NIPT and flu vaccine. Still using zofran for nausea. 07/12/23 -???-???-???-???-??? -???-???-???-???-??? -???-???- 21w 5d 240 lb (+4 lb) 129/82 Negative -???-???-???-???-??? -???-???-???-???-??? -???-???- Negative 141 -???-???-???-???-??? -???-???-???-???-??? -???-???- JV- nausea s till present and (more content not included)... Normal [facility] Rule out Beta Strep (Grp. B) on 10-29-2023 DAPHNE Streptococcus agalactiae (B) Amount Growth Growth Streptococcus agalactiae (B): REACTION Ampicillin Islt IVETT <=0.25 Penicillin G Islt IVETT <=0.06 S cefTRIAXone Islt IVETT <=0.12 S Clindamycin Islt IVETT >=1 R Clindamycin.induced Susc Islt NEG Linezolid Islt IVETT <=2 S Vancomycin Islt IVETT 0.5 S Normal [facility] Comment on above: Performed By: #### M [phone] #### [facility] Laboratory [facility] [place], [address] Laboratory - Chemistry and C hemistry - challengeon 10-25-2023 Glucose Ql (U) Negative [facility] Laboratory - Urinalysison Protein Ql (U) Negative [facility] No Panel InformationOrdered By: Lauren Serra on 10-25-2023 Group B Streptococcus Culture Streptococcus agalactiae (B) [facility] Group B Streptococcus Culture Streptococcus agalactiae (B) [facility] Repair Welder Office Visit Reporton 10-25-2023 Repair Welder Office Visit Report [facility] [place] [facility] [address] [place] [address] OFFICE VISIT Date of Service: 10/25/23 MR#: [id number] Acct: [id number] Name: MITUL MCDANIEL Rep #: [id number] : 1995 Provider: LAURA Stone ams Age/Sex: 28/F Location: [facility] Status: Signed Intake Vital Signs 10/18/23 09:01 10/25/23 14:24 10/25/23 14:26 Height 5 ft 9 in 5 ft 9 in 5 ft 9 in Weight: 250 lb 4 oz BMI 36.9 BP 136/86 H Intake Visit Reasons: 37 WK OB Etl Tester Required: No Is patient in pain?: No Allergies No Known Allergies Allergy (Verified 10/25/23 14:24) Medications docosahexaenoic acid 200 mg capsule ( DHA) mg PO 04/18/23 [History Confirmed 10/25/23] ondansetron 4 mg disintegrating tablet 4 mg PO Q8H PRN nausea and vomiting #30 tabs 07/03/23 [Rx Confirmed 10/25/23] metoclopramide HCl 10 mg tablet (Reglan) 10 mg PO Q6H PRN nausea and vomiting #45 tabs 07/12/23 [Rx Confirmed 10/25/23] Last Menstrual Period: 02/10/23 Zika: Zika virus screening: Negative : No PFSH PFSH Family History Father Hodgkins lymphoma Social History current occupational status: employed 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 Date Name GA/Weeks Outcome Route Bth Weight Gen Labor Lgth Anesthesia Del Locatn Provider FOB 02/12/21 [place] 39 live - full term vacuum 7lbs 3oz Pomerene D r. German Dinh Delivery Date: 02/12/21 Last Updated by: Alison Reynolds No issues during or delivery other than vacuum. HPI 37 WK OB Details: MITUL MCDANIEL is a 28 year old who presents for routine OB visit. OB Visit SIVAKUMAR Calculator Estimated Delivery Date Method Current WG Current Estimate 11/17/23 LMP (Certain) 36w 5d Expected Delivery Route/Plan Labor Preferences- CB/BF classes: [] labor support person: [] labor intervention preferences: epidural pain management options preferred: [] cut cord/dad catch: [] : [] PP control planned: [] discussed possible routes of delivery and associated risks: [] special requests: [] Specific Issue/Plans Covid status: [] Flu vaccine: declined Tdap vaccine: declined Rhogam: na LARC form signed: [] Problem list reviewed and updated with the most current plan of care details and appropriate orders placed. Relevant counseling for the gestational age provided. Continue routine care and follow up unless otherwise noted in visit notes/problem list details Initial Weight: 236 lb Date -???-???-???-???-??? -???-???-???-???-??? -???-???- EGA Weight BP Urine Prot -???-???-???-???-??? -???-???-???-???-??? -???-???- Glucose FHR FuHt Pres Dilation -???-???-???-???-??? -???-???-???-???-??? -???-???- Effaced St Visit Note 04/18/23 -???-???-???-???-??? -???-???-???-???-??? -???-???- 9w 4d 236 lb (+0 oz) 120/78 -???-???-???-???-??? -???-???-???-???-??? -???-???- 169 -???-???-???-???-??? -???-???-???-???-??? -???-???- LC- 2.7CRL c on with LMP. SIVAKUMAR 11/17/2023.reviewed with SM. BMI >30 early glucose. considering NIPT. 05/18/23 -???-???-???-???-??? -???-???-???-???-??? -???-???- 13w 6d 233 lb 2 oz (-2 lb 14 oz) 120/77 Negative -???-???-???-???-??? -???-???-???-???-??? -???-???- Negative 144 -???-???-???-???-??? -???-???-???-???-??? -???-???- JV- decided against nipt JV- decided against nipt. nausea i s improving but not gone. they are going [place] 06/15/23 -???-???-???-???-??? -???-???-???-???-??? -???-???- 17w 6d 233 lb 6 oz (-2 lb 10 oz) 120/78 Negative -???-???-???-???-??? -???-???-???-???-??? -???-???- Negative 146 -???-???-???-???-??? -???-???-???-???-??? -???-???- MH-No VB. De clines NIPT and flu vaccine. Still using zofran for nausea. 07/12/23 -???-???-???-???-??? -???-???-???-???-??? -???-???- 21w 5d 240 lb (+4 lb) 129/82 Negative -???-???-???-???-??? -???-???-???-???-??? -???-???- Negative 141 -???-???-???-???-??? -???-???-???-???-??? -???-???- JV- nausea s till present and is taking zofran frequently. This is (more content not included)... Normal [facility] Laboratory - Chemistry and C hemistry - challengeon 10-18-2023 Glucose Ql (U) Negative [facility] Laboratory - Urinalysison Protein Ql (U) Negative [facility] Repair Welder Office Visit Reporton 10-18-2023 Repair Welder Office Visit Report [facility] [place] [address] [place] [address] OFFICE VISIT Date of Service: 10/18/23 MR#: [id number] Acct: [id number] Name: MITUL MCDANIEL Rep #: [id number] : 1995 Provider: LAURA Stone ams Age/Sex: 28/F Location: [facility] [place] Status: Signed Intake Vital Signs 09/21/23 15:07 10/06/23 14:56 10/18/23 09:01 Height 5 ft 9 in 5 ft 9 in 5 ft 9 in Weight: 248 lb 2 oz BMI 36.6 BP 121/80 H Intake Visit Reasons: 36 WK OB Etl Tester Required: No Is patient in pain?: No Allergies No Known Allergies Allergy (Verified 10/18/23 09:01) Medications docosahexaenoic acid 200 mg capsule ( DHA) mg PO 04/18/23 [History Confirmed 10/18/23] ondansetron 4 mg disintegrating tablet 4 mg PO Q8H PRN nausea and vomiting #30 tabs 07/03/23 [Rx Confirmed 10/18/23] metoclopramide HCl 10 mg tablet (Reglan) 10 mg PO Q6H PRN nausea and vomiting #45 tabs 07/12/23 [Rx Confirmed 10/18/23] Last Menstrual Period: 02/10/23 Zika: Zika virus screening: Negative : No PFSH PFSH Family History Father Hodgkins lymphoma Social History current occupational status: employed 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 Date Name GA/Weeks Outcome Route Bth Weight Infant Gen Labor Lgth Anesthesia Del Locatn Provider FOB 02/12/21 [place] 39 live - full term vacuum 7lbs 3oz Florina Tao Delivery Date: 02/12/21 Last Updated by: Alison Reynolds No issues during or delivery other than vacuum. HPI 36 WK OB Details: MITUL MCDANIEL is a 28 year old who presents for routine OB visit. OB Visit SIVAKUMAR Calculator Estimated Delivery Date Method Current WG Current Estimate 11/17/23 LMP (Certain) 35w 5d Expected Delivery Route/Plan Labor Preferences- CB/BF classes: [] labor support person: [] labor intervention preferences: epidural pain management options preferred: [] cut cord/dad catch: [] : [] PP control planned: [] discussed possible routes of delivery and associated risks: [] special requests: [] Specific Issue/Plans Covid status: [] Flu vaccine: declined Tdap vaccine: declined Rhogam: na LARC form signed: [] Problem list reviewed and updated with the most current plan of care details and appropriate orders placed. Relevant counseling for the gestational age provided. Continue routine care and follow up unless otherwise noted in visit notes/problem list details Initial Weight: 236 lb Date -???-???-???-???-??? -???-???-???-???-??? -???-???- EGA Weight BP Urine Prot -???-???-???-???-??? -???-???-???-???-??? -???-???- Glucose FHR FuHt Pres Dilation -???-???-???-???-??? -???-???-???-???-??? -???-???- Effaced St Visit Note 04/18/23 -???-???-???-???-??? -???-???-???-???-??? -???-???- 9w 4d 236 lb (+0 oz) 120/78 -???-???-???-???-??? -???-???-???-???-??? -???-???- 169 -???-???-???-???-??? -???-???-???-???-??? -???-???- LC- 2.7CRL c on with LMP. SIVAKUMAR 11/17/2023.reviewed with SM. BMI >30 early glucose. considering NIPT. 05/18/23 -???-???-???-???-??? -???-???-???-???-??? -???-???- 13w 6d 233 lb 2 oz (-2 lb 14 oz) 120/77 Negative -???-???-???-???-??? -???-???-???-???-??? -???-???- Negative 144 -???-???-???-???-??? -???-???-???-???-??? -???-???- JV- decided against nipt JV- decided against nipt. nausea i s improving but not gone. they are going [place] 06/15/23 -???-???-???-???-??? -???-???-???-???-??? -???-???- 17w 6d 233 lb 6 oz (-2 lb 10 oz) 120/78 Negative -???-???-???-???-??? -???-???-???-???-??? -???-???- Negative 146 -???-???-???-???-??? -???-???-???-???-??? -???-???- MH-No VB. De clines NIPT and flu vaccine. Still using zofran for nausea. 07/12/23 -???-???-???-???-??? -???-???-???-???-??? -???-???- 21w 5d 240 lb (+4 lb) 129/82 Negative -???-???-???-???-??? -???-???-???-???-??? -???-???- Negative 141 -???-???-???-???-??? -???-???-???-???-??? -???-???- JV- nausea s till present and is taking zofran frequently. This is (more content not included)... Normal [facility] Laboratory - Chemistry and C hemistry - challengeon 10-06-2023 Glucose Ql (U) Negative [facility] Laboratory - Urinalysison Protein Ql (U) Negative [facility] Repair Welder Office Visit Reporton 10-06-2023 Repair Welder Office Visit Report [facility] [place] [facility] [address] [place] [address] OFFICE VISIT Date of Service: 10/06/23 MR#: [id number] Acct: [id number] Name: MITUL MCDANIEL Rep #: [id number] : 1995 Provider: LAURA Stone ams Age/Sex: 28/F Location: [facility] [place] Status: Signed Intake Vital Signs 09/21/23 15:07 10/06/23 14:55 10/06/23 14:56 Height 5 ft 9 in 5 ft 9 in 5 ft 9 in Weight: 246 lb 6 oz 249 lb 6 oz BMI 36.3 36.8 BP 128/79 H 116/74 Intake Visit Reasons: 34 WK OB Etl Tester Required: No Is patient in pain?: No Allergies No Known Allergies Allergy (Verified 10/06/23 14:55) Medications docosahexaenoic acid 200 mg capsule ( DHA) mg PO 04/18/23 [History Confirmed 10/06/23] ondansetron 4 mg disintegrating tablet 4 mg PO Q8H PRN nausea and vomiting #30 tabs 07/03/23 [Rx Confirmed 10/06/23] metoclopramide HCl 10 mg tablet (Reglan) 10 mg PO Q6H PRN nausea and vomiting #45 tabs 07/12/23 [Rx Confirmed 10/06/23] Last Menstrual Period: 02/10/23 Zika: Zika virus screening: Negative : No PFSH PFSH Family History Father Hodgkins lymphoma Social History current occupational status: employed 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 Date Name GA/Weeks Outcome Route Bth Weight Infant Gen Labor Lgth Anesthesia Del Locatn Provider FOB 02/12/21 [place] 39 live - full term vacuum 7lbs 3oz Pomerene D r. Vaccariello Dinh Delivery Date: 02/12/21 Last Updated by: Alison Reynolds No issues during or delivery other than vacuum. HPI 34 WK OB Details: MITUL MCDANIEL is a 28 year old who presents for routine OB visit. OB Visit SIVAKUMAR Calculator Estimated Delivery Date Method Current WG Current Estimate 11/17/23 LMP (Certain) 34w 0d Expected Delivery Route/Plan Labor Preferences- CB/BF classes: [] labor support person: [] labor intervention preferences: epidural pain management options preferred: [] cut cord/dad catch: [] : [] PP control planned: [] discussed possible routes of delivery and associated risks: [] special requests: [] Specific Issue/Plans Covid status: [] Flu vaccine: declined Tdap vaccine: declined Rhogam: na LARC form signed: [] Problem list reviewed and updated with the most current plan of care details and appropriate orders placed. Relevant counseling for the gestational age provided. Continue routine care and follow up unless otherwise noted in visit notes/problem list details Initial Weight: 236 lb Date -???-???-???-???-??? -???-???-???-???-??? -???-???- EGA Weight BP Urine Prot -???-???-???-???-??? -???-???-???-???-??? -???-???- Glucose FHR FuHt Pres Dilation -???-???-???-???-??? -???-???-???-???-??? -???-???- Effaced St Visit Note 04/18/23 -???-???-???-???-??? -???-???-???-???-??? -???-???- 9w 4d 236 lb (+0 oz) 120/78 -???-???-???-???-??? -???-???-???-???-??? -???-???- 169 -???-???-???-???-??? -???-???-???-???-??? -???-???- LC- 2.7CRL c on with LMP. SIVAKUMAR 11/17/2023.reviewed with SM. BMI >30 early glucose. considering NIPT. 05/18/23 -???-???-???-???-??? -???-???-???-???-??? -???-???- 13w 6d 233 lb 2 oz (-2 lb 14 oz) 120/77 Negative -???-???-???-???-??? -???-???-???-???-??? -???-???- Negative 144 -???-???-???-???-??? -???-???-???-???-??? -???-???- JV- decided against nipt JV- decided against nipt. nausea i s improving but not gone. they are going [place] 06/15/23 -???-???-???-???-??? -???-???-???-???-??? -???-???- 17w 6d 233 lb 6 oz (-2 lb 10 oz) 120/78 Negative -???-???-???-???-??? -???-???-???-???-??? -???-???- Negative 146 -???-???-???-???-??? -???-???-???-???-??? -???-???- -No VB. De clines NIPT and flu vaccine. Still using zofran for nausea. 07/12/23 -???-???-???-???-??? -???-???-???-???-??? -???-???- 21w 5d 240 lb (+4 lb) 129/82 Negative -???-???-???-???-??? -???-???-???-???-??? -???-???- Negative 141 -???-???-???-???-??? -???-???-???-???-??? -???-???- JV- nausea s till present and is taking zo (more content not included)... Normal [facility] Repair Welder Office Visit Reporton 09-21-2023 Repair Welder Office Visit Report [facility] [place] [facility] Department [address] [place], [place] [id number] OFFICE VISIT Date of Service: 09/21/23 MR#: [id number] Acct: [id number] Name: MITUL MCDANIEL Rep #: [id number] : 1995 Provider: LAURA singh Age/Sex: 28/F Location: [facility] [place] Status: Signed with Addenda ADDENDUM by LAURA Villa on 09/21/23 at 1736 Office Procedure Documentation entered by Judy Villa CNM 09/21/23 17:36: Non-stress Test Non-Stress Test Indications for Monitoring: Yes other Heart Rate Baseline: 120 Heart Rate Variability: moderate Movement: Present Heart Rate Accelerations: Present Decelerations: Absent Contractions: Absent Impression: Yes Reactive Non-Stress Test 09/21/23 1736 Date Judy Villa CNM cc: * Signed Intake Vital Signs 08/09/23 15:45 09/08/23 14:30 09/21/23 15:07 Height 5 ft 9 in 5 ft 9 in 5 ft 9 in Weight: 246 lb 6 oz BMI 36.3 BP 128/79 H Intake Visit Reasons: 32 WK OB Etl Tester Required: No Is patient in pain?: No Allergies No Known Allergies Allergy (Verified 09/21/23 15:07) Medications docosahexaenoic acid 200 mg capsule ( DHA) mg PO 04/18/23 [History Confirmed 09/21/23] ondansetron 4 mg disintegrating tablet 4 mg PO Q8H PRN nausea and vomiting #30 tabs 07/03/23 [Rx Confirmed 09/21/23] metoclopramide HCl 10 mg tablet (Reglan) 10 mg PO Q6H PRN nausea and vomiting #45 tabs 07/12/23 [Rx Confirmed 09/21/23] Last Menstrual Period: 02/10/23 Zika: Zika virus screening: Negative : No PFSH PFSH Family History Father Hodgkins lymphoma Social History current occupational status: employed 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 Date Name GA/Weeks Outcome Route Bth Weight Infant Gen Labor Lgth Anesthesia Del Locatn Provider FOB 02/12/21 [place] 39 live - full term vacuum 7lbs 3oz Pomerene Gloria r. [facility] Delivery Date: 02/12/21 Last Updated by: Alison Reynolds No issues during or delivery other than vacuum. HPI 32 WK OB Details: MITUL MCDANIEL is a 28 year old who presents for routine OB visit. OB Visit SIVAKUMAR Calculator Estimated Delivery Date Method Current WG Current Estimate 11/17/23 LMP (Certain) 31w 6d Expected Delivery Route/Plan Labor Preferences- CB/BF classes: [] labor support person: [] labor intervention preferences: [] pain management options preferred: [] cut cord/dad catch: [] : [] PP control planned: [] discussed possible routes of delivery and associated risks: [] special requests: [] Specific Issue/Plans Covid status: [] Flu vaccine: declined Tdap vaccine: declined Rhogam: na LARC form signed: [] Problem list reviewed and updated with the most current plan of care details and appropriate orders placed. Relevant counseling for the gestational age provided. Continue routine care and follow up unless otherwise noted in visit notes/problem list details Initial Weight: 236 lb Date -???-???-???-???-??? -???-???-???-???-??? -???-???- EGA Weight BP Urine Prot -???-???-???-???-??? -???-???-???-???-??? -???-???- Glucose FHR FuHt Pres Dilation -???-???-???-???-??? -???-???-???-???-??? -???-???- Effaced St Visit Note 04/18/23 -???-???-???-???-??? -???-???-???-???-??? -???-???- 9w 4d 236 lb (+0 oz) 120/78 -???-???-???-???-??? -???-???-???-???-??? -???-???- 169 -???-???-???-???-??? -???-???-???-???-??? -???-???- LC- 2.7CRL c on with LMP. SIVAKUMAR 11/17/2023.reviewed with SM. BMI >30 early glucose. considering NIPT. 05/18/23 -???-???-???-???-??? -???-???-???-???-??? -???-???- 13w 6d 233 lb 2 oz (-2 lb 14 oz) 120/77 Negative -???-???-???-???-??? -???-???-???-???-??? -???-???- Negative 144 -???-???-???-???-??? -???-???-???-???-??? -???-???- JV- decided against nipt JV- decided against nipt. nausea i s improving but not gone. they are going [place] to [place] 06/15/23 -???-??? (more content not included)... Normal [facility] - Chemistry and C hemistry - challengeon 09-08-2023 Glucose Ql (U) Negative [facility] - Urinalysison Protein Ql (U) 1+ [facility] Repair Welder Office Visit Reporton 09-08-2023 Repair Welder Office Visit Report [facility] [address] [place] [address] OFFICE VISIT Date of Service: 09/08/23 MR#: [id number] Acct: [id number] Name: MITUL MCDANIEL Rep #: [id number] : 1995 Provider: Dr. Gail olsen MD Age/Sex: 28/F Location: [facility] [place] Status: Signed Intake Vital Signs 08/09/23 15:45 08/24/23 13:37 09/08/23 14:29 09/08/23 14:30 Height 5 ft 9 in 5 ft 9 in 5 ft 9 in 5 ft 9 in Weight: 245 lb BMI 36.1 BP 125/81 H Intake Visit Reasons: 30 WK OB Etl Tester Required: No Is patient in pain?: No Allergies No Known Allergies Allergy (Verified 09/08/23 14:30) Medications docosahexaenoic acid 200 mg capsule ( DHA) mg PO 04/18/23 [History Confirmed 09/08/23] ondansetron 4 mg disintegrating tablet 4 mg PO Q8H PRN nausea and vomiting #30 tabs 07/03/23 [Rx Confirmed 09/08/23] metoclopramide HCl 10 mg tablet (Reglan) 10 mg PO Q6H PRN nausea and vomiting #45 tabs 07/12/23 [Rx Confirmed 09/08/23] Last Menstrual Period: 02/10/23 Zika: Zika virus screening: Negative : No PFSH PFSH Family History Father Hodgkins lymphoma Social History current occupational status: employed 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 Date Name GA/Weeks Outcome Route Bth Weight Gen Labor Lgth Anesthesia Del Locatn Provider FOB 02/12/21 [place] 39 live - full term vacuum 7lbs 3oz Pomtammy mott. Vaccyoko Dinh Delivery Date: 02/12/21 Last Updated by: Alison Reynolds No issues during or delivery other than vacuum. HPI 30 WK OB Details: MITUL MCDANIEL is a 28 year old who presents for routine OB visit. OB Visit SIVAKUMAR Calculator Estimated Delivery Date Method Current WG Current Estimate 11/17/23 LMP (Certain) 30w 0d Expected Delivery Route/Plan Labor Preferences- CB/BF classes: [] labor support person: [] labor intervention preferences: [] pain management options preferred: [] cut cord/dad catch: [] : [] PP control planned: [] discussed possible routes of delivery and associated risks: [] special requests: [] Specific Issue/Plans Covid status: [] Flu vaccine: declined Tdap vaccine: declined Rhogam: na LARC form signed: [] Problem list reviewed and updated with the most current plan of care details and appropriate orders placed. Relevant counseling for the gestational age provided. Continue routine care and follow up unless otherwise noted in visit notes/problem list details Initial Weight: 236 lb Date -???-???-???-???-??? -???-???-???-???-??? -???-???- EGA Weight BP Urine Prot -???-???-???-???-??? -???-???-???-???-??? -???-???- Glucose FHR FuHt Pres Dilation -???-???-???-???-??? -???-???-???-???-??? -???-???- Effaced St Visit Note 04/18/23 -???-???-???-???-??? -???-???-???-???-??? -???-???- 9w 4d 236 lb (+0 oz) 120/78 -???-???-???-???-??? -???-???-???-???-??? -???-???- 169 -???-???-???-???-??? -???-???-???-???-??? -???-???- LC- 2.7CRL c on with LMP. SIVAKUMAR 11/17/2023.reviewed with SM. BMI >30 early glucose. considering NIPT. 05/18/23 -???-???-???-???-??? -???-???-???-???-??? -???-???- 13w 6d 233 lb 2 oz (-2 lb 14 oz) 120/77 Negative -???-???-???-???-??? -???-???-???-???-??? -???-???- Negative 144 -???-???-???-???-??? -???-???-???-???-??? -???-???- JV- decided against nipt JV- decided against nipt. nausea i s improving but not gone. they are going [place] 06/15/23 -???-???-???-???-??? -???-???-???-???-??? -???-???- 17w 6d 233 lb 6 oz (-2 lb 10 oz) 120/78 Negative -???-???-???-???-??? -???-???-???-???-??? -???-???- Negative 146 -???-???-???-???-??? -???-???-???-???-??? -???-???- MH-No VB. De clines NIPT and flu vaccine. Still using zofran for nausea. 07/12/23 -???-???-???-???-??? -???-???-???-???-??? -???-???- 21w 5d 240 lb (+4 lb) 129/82 Negative -???-???-???-???-??? -???-???-???-???-??? -???-???- Negative 141 -???-???-???-???-??? -???-???-???-???-??? -???-???- JV- nausea s till present and is taking zo (more content not included)... Normal [facility] Protein+Creatinine Ratio,Uri neon 09-08-2023 PROT:CRE RATIO 187 mg/g CRE Normal 0-200 [facility] Comment on above: Performed By: #### L 501.0900 #### [facility] [address] [place], [place], [id number] Protein (U) [Mass/Vol] 54.2 mg/dL High <11.9 [facility] Comment on above: Performed By: #### L 501.0900 #### [facility] [address] [place], [address] UR CREAT 290.00 mg/dL Normal NO RANGE EST. [facility] Comment on above: Performed By: #### L 501.0900 #### [facility] [address] [place], [place], [id number] Urine creatinine measurement (mass/volume)Ordered By: Gail Jackson on 09-08-2023 Creatinine (U) [Mass/Vol] 290.00 mg/dL NO RANGE EST. [facility] Urine protein measurement (m ass/volume)Ordered By: Gail Jackson on 09-08-2023 Protein (U) [Mass/Vol] 54.2 mg/dL 0.0-11.8 [facility] Urine protein/creatinine mas s ratioOrdered By: Gail Jackson on 09-08-2023 Protein/Creatinine (U) [Mass ratio] 187 mg/g CRE 0-200 [facility] - Chemistry and C hemistry - challengeon 08-24-2023 Glucose Ql (U) Negative [facility] - Urinalysison Protein Ql (U) Negative [facility] Repair Welder Office Visit Reporton 08-24-2023 Repair Welder Office Visit Report [facility] [address] [place], [place] [address] OFFICE VISIT Date of Service: 08/24/23 MR#: [id number] Acct: [id number] Name: MITUL MCDANIEL Rep #: [id number] : 1995 Provider: Dr. Indigo Vallejo DO Age/Sex: 28/F Location: [facility] [place] Status: Signed Intake Vital Signs 08/09/23 15:45 08/24/23 13:37 Height 5 ft 9 in 5 ft 9 in Weight: 241 lb 2 oz BMI 35.6 BP 133/75 H Intake Visit Reasons: 28 WK OB Etl Tester Required: No Is patient in pain?: No Allergies No Known Allergies Allergy (Verified 08/24/23 13:38) Medications docosahexaenoic acid 200 mg capsule ( DHA) mg PO 04/18/23 [History Confirmed 08/24/23] ondansetron 4 mg disintegrating tablet 4 mg PO Q8H PRN nausea and vomiting #30 tabs 07/03/23 [Rx Confirmed 08/24/23] metoclopramide HCl 10 mg tablet (Reglan) 10 mg PO Q6H PRN nausea and vomiting #45 tabs 07/12/23 [Rx Confirmed 08/24/23] Last Menstrual Period: 02/10/23 Zika: Zika virus screening: Negative : No PFSH PFSH Family History Father Hodgkins lymphoma Social History current occupational status: employed 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 Date Name GA/Weeks Outcome Route Bth Weight Gen Labor Lgth Anesthesia Del Locatn Provider FOB 02/12/21 [place] 39 live - full term vacuum 7lbs 3oz Pomerene D r. [facility] Delivery Date: 02/12/21 Last Updated by: Alison Reynolds No issues during or delivery other than vacuum. HPI 28 WK OB Details: MITUL MCDANIEL is a 28 year old who presents for routine OB visit. OB Visit SIVAKUMAR Calculator Estimated Delivery Date Method Current WG Current Estimate 11/17/23 LMP (Certain) 27w 6d Expected Delivery Route/Plan Labor Preferences- CB/BF classes: [] labor support person: [] labor intervention preferences: [] pain management options preferred: [] cut cord/dad catch: [] : [] PP control planned: [] discussed possible routes of delivery and associated risks: [] special requests: [] Specific Issue/Plans Covid status: [] Flu vaccine: [] Tdap vaccine: [] Rhogam: [] LARC form signed: [] Problem list reviewed and updated with the most current plan of care details and appropriate orders placed. Relevant counseling for the gestational age provided. Continue routine care and follow up unless otherwise noted in visit notes/problem list details Initial Weight: 236 lb Date -???-???-???-???-??? -???-???-???-???-??? -???-???- EGA Weight BP Urine Prot -???-???-???-???-??? -???-???-???-???-??? -???-???- Glucose FHR FuHt Pres Dilation -???-???-???-???-??? -???-???-???-???-??? -???-???- Effaced St Visit Note 04/18/23 -???-???-???-???-??? -???-???-???-???-??? -???-???- 9w 4d 236 lb (+0 oz) 120/78 -???-???-???-???-??? -???-???-???-???-??? -???-???- 169 -???-???-???-???-??? -???-???-???-???-??? -???-???- LC- 2.7CRL c on with LMP. SIVAKUMAR 11/17/2023.reviewed with SM. BMI >30 early glucose. considering NIPT. 05/18/23 -???-???-???-???-??? -???-???-???-???-??? -???-???- 13w 6d 233 lb 2 oz (-2 lb 14 oz) 120/77 Negative -???-???-???-???-??? -???-???-???-???-??? -???-???- Negative 144 -???-???-???-???-??? -???-???-???-???-??? -???-???- JV- decided against nipt JV- decided against nipt. nausea i s improving but not gone. [place] are going [place] 06/15/23 -???-???-???-???-??? -???-???-???-???-??? -???-???- 17w 6d 233 lb 6 oz (-2 lb 10 oz) 120/78 Negative -???-???-???-???-??? -???-???-???-???-??? -???-???- Negative 146 -???-???-???-???-??? -???-???-???-???-??? -???-???- -No VB. De clines NIPT and flu vaccine. Still using zofran for nausea. 07/12/23 -???-???-???-???-??? -???-???-???-???-??? -???-???- 21w 5d 240 lb (+4 lb) 129/82 Negative -???-???-???-???-??? -???-???-???-???-??? -???-???- Negative 141 -???-???-???-???-??? -???-???-???-???-??? -???-???- JV- nausea s till present and is taking zofran frequently. This is causing constipation which is now andry (more content not included)... Normal [facility] Absolute lymphocyte countOrd ered By: Indigo Rocha on 08-09-2023 Lymphocytes Auto (Unsp spec) [#/Vol] 2.59 10*3/uL 0.83-4.51 [facility] Basophil percentageOrdered B y: Indigo Rocha on 08-09-2023 Basophils/100 WBC (Bld) 0.4 % 0-[address] [facility] Eosinophils/100 WBC (Bld) 1.1 % 0-5 [facility] Neutrophils (Bld) [#/Vol] 7.7 10*3/uL 2.0-7.7 [facility] Neutrophils/100 WBC (Bld) 67.0 % 47-70 [facility] WBC (Bld) [#/Vol] 11.4 10*3/uL 4.4-11.0 [facility] Blood erythrocytes count (nu mber/volume)Ordered By: Indigo Rocha on 08-09-2023 RBC (Bld) [#/Vol] 4.12 10*6/uL 4.2-5.4 [facility] Blood hemoglobin measurement (mass/volume)Ordered By: Indigo Rocha on 08-09-2023 Hemoglobin (Bld) [Mass/Vol] 11.8 g/dL 12.0-15.0 [facility] Blood lymphocytes/100 leukoc ytesOrdered By: Indigo Rocha on 08-09-2023 Lymphocytes/100 WBC (Bld) 22.6 % 19-41 [facility] Blood monocytes/100 leukocyt esOrdered By: Indigo Rocha on 08-09-2023 Monocytes/100 WBC (Bld) 8.5 % 0-[address] [facility] Blood platelet mean volumeOr dered By: Indigo Rocha on 08-09-2023 Platelet mean volume (Bld) [Entitic vol] 9.9 fL 6.2-12.0 [facility] CBC W/Diff, Automatedon 07-14 Absolute Lymph 2.59 X10 3/uL Normal 0.83-4.51 [facility] Comment on above: Order Comment: PT WA S TO BE DRAWN @ 1530 DIDNT GET HERE AND REGISTERED IN TIME TO DO THAT 5 MIN LATE BEING DRAWN. DRAWN @ 1535 Performed By: #### L 100.0100, L501.0250, L3890.6005, L509.8000 #### [facility] [address] [place], [address] Absolute Neut 7.7 X10 3/uL Normal 2.0-7.7 [facility] Comment on above: Order Comment: PT WA S TO BE DRAWN @ 1530 DIDNT GET HERE AND REGISTERED IN TIME TO DO THAT 5 MIN LATE BEING DRAWN. DRAWN @ 1535 Performed By: #### L 100.0100, L501.0250, L3890.6005, L509.8000 #### [facility] [address] [place], [address] Basophils/100 WBC (Bld) 0.4 % Normal 0-[address] [facility] Comment on above: Order Comment: PT WA S TO BE DRAWN @ 1530 DIDNT GET HERE AND REGISTERED IN TIME TO DO THAT 5 MIN LATE BEING DRAWN. DRAWN @ 1535 Performed By: #### L 100.0100, L501.0250, L3890.6005, L509.8000 #### [facility] [address] [place], [address] Eosinophils/100 WBC (Bld) 1.1 % Normal 0-5 [facility] Comment on above: Order Comment: PT WA S TO BE DRAWN @ 1530 DIDNT GET HERE AND REGISTERED IN TIME TO DO THAT 5 MIN LATE BEING DRAWN. DRAWN @ 1535 Performed By: #### L 100.0100, L501.0250, L3890.6005, L509.8000 #### [facility] [address] [place], [address] Erythrocyte distribution width (RBC) [Ratio] 12.8 % Normal 11.6-14.6 [facility] Comment on above: Order Comment: PT WA S TO BE DRAWN @ 1530 DIDNT GET HERE AND REGISTERED IN TIME TO DO THAT 5 MIN LATE BEING DRAWN. DRAWN @ 1535 Performed By: #### L 100.0100, L501.0250, L3890.6005, L509.8000 #### [facility] [address] [place], [address] Hematocrit (Bld) [Volume fraction] 36.7 % Low 37-47 [facility] Comment on above: Order Comment: PT WA S TO BE DRAWN @ 1530 DIDNT GET HERE AND REGISTERED IN TIME TO DO THAT 5 MIN LATE BEING DRAWN. DRAWN @ 1535 Performed By: #### L 100.0100, L501.0250, L3890.6005, L509.8000 #### [facility] [address] [place], [address] Hemoglobin (Bld) [Mass/Vol] 11.8 g/dL Low 12.0-15.0 [facility] Comment on above: Order Comment: PT WA S TO BE DRAWN @ 1530 DIDNT GET HERE AND REGISTERED IN TIME TO DO THAT 5 MIN LATE BEING DRAWN. DRAWN @ 1535 Performed By: #### L 100.0100, L501.0250, L3890.6005, L509.8000 #### [facility] [address] [place], [address] IG% 0.400 Normal 0.0-0.9 [facility] Comment on above: Order Comment: PT WA S TO BE DRAWN @ 1530 DIDNT GET HERE AND REGISTERED IN TIME TO DO THAT 5 MIN LATE BEING DRAWN. DRAWN @ 1535 Result Comment: IG% - Immature Granulocytes (promyelocytes, myelocytes and metamyelocytes) > 1% indicates that a LEFT SHIFT is Present. Performed By: #### L 100.0100, L501.0250, L3890.6005, L509.8000 #### [facility] [address] [place], [address] Lymphocytes/100 WBC (Bld) 22.6 % Normal 19-41 [facility] Comment on above: Order Comment: PT WA S TO BE DRAWN @ 1530 DIDNT GET HERE AND REGISTERED IN TIME TO DO THAT 5 MIN LATE BEING DRAWN. DRAWN @ 1535 Performed By: #### L 100.0100, L501.0250, L3890.6005, L509.8000 #### [facility] [address] [place], [address] MCH (RBC) [Entitic mass] 28.6 pg Normal 27.0-32.0 [facility] Comment on above: Order Comment: PT WA S TO BE DRAWN @ 1530 DIDNT GET HERE AND REGISTERED IN TIME TO DO THAT 5 MIN LATE BEING DRAWN. DRAWN @ 1535 Performed By: #### L 100.0100, L501.0250, L3890.6005, L509.8000 #### [facility] [address] [place], [address] MCHC (RBC) [Mass/Vol] 32.2 g/dL Normal 32-36 [facility] Comment on above: Order Comment: PT WA S TO BE DRAWN @ 1530 DIDNT GET HERE AND REGISTERED IN TIME TO DO THAT 5 MIN LATE BEING DRAWN. DRAWN @ 1535 Performed By: #### L 100.0100, L501.0250, L3890.6005, L509.8000 #### [facility] [address] [place], [address] MCV (RBC) [Entitic vol] 89.1 fL Normal 81-[address] [facility] Comment on above: Order Comment: PT WA S TO BE DRAWN @ 1530 DIDNT GET HERE AND REGISTERED IN TIME TO DO THAT 5 MIN LATE BEING DRAWN. DRAWN @ 1535 Performed By: #### L 100.0100, L501.0250, L3890.6005, L509.8000 #### [facility] [address] [place], [address] Monocytes/100 WBC (Bld) 8.5 % Normal 0-[address] [facility] Comment on above: Order Comment: PT WA S TO BE DRAWN @ 1530 DIDNT GET HERE AND REGISTERED IN TIME TO DO THAT 5 MIN LATE BEING DRAWN. DRAWN @ 1535 Performed By: #### L 100.0100, L501.0250, L3890.6005, L509.8000 #### [facility] [address] [place], [address] Neutrophils/100 WBC (Bld) 67.0 % Normal 47-70 [facility] Comment on above: Order Comment: PT WA S TO BE DRAWN @ 1530 DIDNT GET HERE AND REGISTERED IN TIME TO DO THAT 5 MIN LATE BEING DRAWN. DRAWN @ 1535 Performed By: #### L 100.0100, L501.0250, L3890.6005, L509.8000 #### [facility] [address] [place], [address] Nucleated RBC (Bld) [#/Vol] 0 10*3/uL Normal 0-5 [facility] Comment on above: Order Comment: PT WA S TO BE DRAWN @ 1530 DIDNT GET HERE AND REGISTERED IN TIME TO DO THAT 5 MIN LATE BEING DRAWN. DRAWN @ 1535 Performed By: #### L 100.0100, L501.0250, L3890.6005, L509.8000 #### [facility] [address], [address] Platelet mean volume (Bld) [Entitic vol] 9.9 fL Normal 6.2-12.0 [facility] Comment on above: Order Comment: PT WA S TO BE DRAWN @ 1530 DIDNT GET HERE AND REGISTERED IN TIME TO DO THAT 5 MIN LATE BEING DRAWN. DRAWN @ 1535 Performed By: #### L 100.0100, L501.0250, L3890.6005, L509.8000 #### [facility] [address] [place], [address] Platelets (Bld) [#/Vol] 285 10*3/uL Normal 150-450 [facility] Comment on above: Order Comment: PT WA S TO BE DRAWN @ 1530 DIDNT GET HERE AND REGISTERED IN TIME TO DO THAT 5 MIN LATE BEING DRAWN. DRAWN @ 1535 Performed By: #### L 100.0100, L501.0250, L3890.6005, L509.8000 #### [facility] [address] [place], [address] RBC (Bld) [#/Vol] 4.12 10*6/uL Low 4.2-5.4 [facility] Comment on above: Order Comment: PT WA S TO BE DRAWN @ 1530 DIDNT GET HERE AND REGISTERED IN TIME TO DO THAT 5 MIN LATE BEING DRAWN. DRAWN @ 1535 Performed By: #### L 100.0100, L501.0250, L3890.6005, L509.8000 #### [facility] [address] [place], [place], [id number] RDW SD 41.7 fl Normal 35.1-43.9 [facility] Comment on above: Order Comment: PT WA S TO BE DRAWN @ 1530 DIDNT GET HERE AND REGISTERED IN TIME TO DO THAT 5 MIN LATE BEING DRAWN. DRAWN @ 1535 Performed By: #### L 100.0100, L501.0250, L3890.6005, L509.8000 #### [facility] [address], [address] WBC (Bld) [#/Vol] 11.4 10*3/uL High 4.4-11.0 [facility] Comment on above: Order Comment: PT WA S TO BE DRAWN @ 1530 DIDNT GET HERE AND REGISTERED IN TIME TO DO THAT 5 MIN LATE BEING DRAWN. DRAWN @ 1535 Performed By: #### L 100.0100, L501.0250, L3890.6005, L509.8000 #### [facility] [address] [place], [place], [address] Determination of erythrocyte mean corpuscular volume (MCV)Ordered By: Indigo Rocha on 08-09-2023 MCV (RBC) [Entitic vol] 89.1 fL 81-[address] [facility] Gestational diabetes screen 1-hour screen with 50g oral glucose loadOrdered By: Indigo Rocha on 08-09-2023 Glucose 1 Hr post 50 g glucose PO [Mass/Vol] 54 mg/dL 70-140 [facility] Glucose Challenge Gest 1H 50 ally 08-09-2023 GLU GEST 50g 1H 54 mg/dL Low 70-140 [facility] Comment on above: Order Comment: PT WA S TO BE DRAWN @ 1530 DIDNT GET HERE AND REGISTERED INTIME TO DO THAT 5 MIN LATE BEING DRAWN DRAWN @ 1535 Performed By: #### L 100.0100, L501.0250, L3890.6005, L509.8000 ####[facility] [id number] [place], [address] HIV - WCHon 08-09-2023 HIV Non-Reactive Normal Nonreactive [facility] Comment on above: Order Comment: PT WA S TO BE DRAWN @ 1530 DIDNT GET HERE AND REGISTERED INTIME TO DO THAT 5 MIN LATE BEING DRAWN. DRAWN @ 1535 Performed By: #### L 100.0100, L501.0250, L3890.6005, L509.8000 ####[facility] [id number] [place], [place], [id number] HIV 1 and HIV-2 antibody ass ay with HIV-1 p24 antigen detectionOrdered By: Indigo Rocha on 08-09-2023 HIV 1+2 Ab+HIV1 p24 Ag IA Ql Non-Reactive Nonreactive [facility] Hematocrit Auto (Bld) [Volum e fraction]Ordered By: Indigo Rocha on 08-09-2023 Hematocrit (Bld) [Volume fraction] 36.7 % 37-47 [facility] L509.8000on 08-09-2023 Syphilis Abs Non-Reactive Normal [facility] Comment on above: Order Comment: PT WA S TO BE DRAWN @ 1530 DIDNT GET HERE AND REGISTERED INTIME TO DO THAT 5 MIN LATE BEING DRAWN. DRAWN @ 1535 Performed By: #### L 100.0100, L501.0250, L3890.6005, L509.8000 ####[facility] [id number] [place], [address] Laboratory - Chemistry and C hemistry - challengeon 08-09-2023 Glucose Ql (U) Negative [facility] Laboratory - Hematology and Cell countsOrdered By: Indigo Rocha on 08-09-2023 Erythrocyte distribution width (RBC) [Entitic vol] 41.7 fL 35.1-43.9 [facility] Erythrocyte distribution width (RBC) [Ratio] 12.8 % 11.6-14.6 [facility] Immature granulocytes/100 WBC (Bld) 0.400 % 0.0-0.9 [facility] Comment on above: IG% - Immature Granu locytes (promyelocytes, myelocytes and metamyelocytes) > 1% indicates that a LEFT SHIFT is Present. MCH (RBC) [Entitic mass] 28.6 pg 27.0-32.0 [facility] Nucleated RBC/100 WBC (Bld) [Ratio] 0 % 0-5 [facility] Laboratory - Urinalysison Protein Ql (U) Negative [facility] MCHC Auto (RBC) [Mass/Vol]Or dered By: Indigo Rocha on 08-09-2023 MCHC (RBC) [Mass/Vol] 32.2 g/dL 32-36 [facility] Repair Welder Office Visit Reporton 08-09-2023 Repair Welder Office Visit Report [facility] [place] [facility] [address] [place] [address] OFFICE VISIT Date of Service: 08/09/23 MR#: [id number] Acct: [id number] Name: MITUL MCDANIEL Rep #: [id number] : 1995 Provider: Dr. Gail olsen MD Age/Sex: 27/F Location: [facility] Status: Signed Intake Vital Signs 06/15/23 15:58 07/12/23 15:53 08/09/23 15:43 08/09/23 15:45 Height 5 ft 9 in 5 ft 9 in 5 ft 9 in 5 ft 9 in Weight: 240 lb BMI 35.4 BP 112/78 Intake Visit Reasons: 25 WK OB Etl Tester Required: No Is patient in pain?: No Allergies No Known Allergies Allergy (Verified 08/09/23 15:44) Medications docosahexaenoic acid 200 mg capsule ( DHA) mg PO 04/18/23 [History Confirmed 08/09/23] ondansetron 4 mg disintegrating tablet 4 mg PO Q8H PRN nausea and vomiting #30 tabs 07/03/23 [Rx Confirmed 08/09/23] metoclopramide HCl 10 mg tablet (Reglan) 10 mg PO Q6H PRN nausea and vomiting #45 tabs 07/12/23 [Rx Confirmed 08/09/23] Last Menstrual Period: 02/10/23 Zika: Zika virus screening: Negative : No PFSH PFSH Family History Father Hodgkins lymphoma Social History current occupational status: employed 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 Date Name GA/Weeks Outcome Route Bth Weight Infant Gen [facility] F[facility]/12/21 [place] 39 live - full term vacuum 7lbs 3oz Pomerejavier Tao Delivery Date: 02/12/21 Last Updated by: Alison [place] No issues during or delivery other than vacuum. HPI 25 WK OB Details: MITUL MCDANIEL is a 27 year old who presents for routine OB visit. OB Visit SIVAKUMAR Calculator Estimated Delivery Date Method Current WG Current Estimate 11/17/23 LMP (Certain) 25w 5d Expected Delivery Route/Plan Labor Preferences- CB/BF classes: [] labor support person: [] labor intervention preferences: [] pain management options preferred: [] cut cord/dad catch: [] : [] PP control planned: [] discussed possible routes of delivery and associated risks: [] special requests: [] Specific Issue/Plans Covid status: [] Flu vaccine: [] Tdap vaccine: [] Rhogam: [] LARC form signed: [] Problem list reviewed and updated with the most current plan of care details and appropriate orders placed. Relevant counseling for the gestational age provided. Continue routine care and follow up unless otherwise noted in visit notes/problem list details Initial Weight: 236 lb Date -???-???-???-???-??? -???-???-???-???-??? -???-???- EGA Weight BP Urine Prot -???-???-???-???-??? -???-???-???-???-??? -???-???- Glucose FHR FuHt Pres Dilation -???-???-???-???-??? -???-???-???-???-??? -???-???- Effaced St Visit Note 04/18/23 -???-???-???-???-??? -???-???-???-???-??? -???-???- 9w 4d 236 lb (+0 oz) 120/78 -???-???-???-???-??? -???-???-???-???-??? -???-???- 169 -???-???-???-???-??? -???-???-???-???-??? -???-???- LC- 2.7CRL c on with LMP. SIVAKUMAR 11/17/2023.reviewed with SM. BMI >30 early glucose. considering NIPT. 05/18/23 -???-???-???-???-??? -???-???-???-???-??? -???-???- 13w 6d 233 lb 2 oz (-2 lb 14 oz) 120/77 Negative -???-???-???-???-??? -???-???-???-???-??? -???-???- Negative 144 -???-???-???-???-??? -???-???-???-???-??? -???-???- JV- decided against nipt JV- decided against nipt. nausea i s improving but not gone. they are going [place] to [place] 06/15/23 -???-???-???-???-??? -???-???-???-???-??? -???-???- 17w 6d 233 lb 6 oz (-2 lb 10 oz) 120/78 Negative -???-???-???-???-??? -???-???-???-???-??? -???-???- Negative 146 -???-???-???-???-??? -???-???-???-???-??? -???-???- -No VB. Brent clines NIPT and flu vaccine. Still using zofran for nausea. 07/12/23 -???-???-???-???-??? -???-???-???-???-??? -???-???- 21w 5d 240 lb (+4 lb) 129/82 Negative -???-???-???-???-??? -???-???-???-???-??? -???-???- Negative 141 -???-???-???-???-??? -???-???-???-???-??? -???-???- JV- nausea s till present and is taking zofran frequently. This is cau (more content not included)... Normal [facility] Platelets bldOrdered By: Adilene Rocha on 08-09-2023 Platelets (Bld) [#/Vol] 285 10*3/uL 150-450 [facility] Serum Treponema species anti body detectionOrdered By: Indigo Rocha on 08-09-2023 Treponema sp Ab Ql (S) Non-Reactive [facility] Laboratory - Chemistry and C hemistry - challengeon 07-12-2023 Glucose Ql (U) Negative [facility] Laboratory - Urinalysison Protein Ql (U) Negative [facility] Repair Welder Office Visit Reporton 07-12-2023 Repair Welder Office Visit Report [facility] [place] [facility] [address] [place] [address]. [address] [place] [address] OFFICE VISIT Date of Service: 07/12/23 MR#: [id number] Acct: [id number] Name: MITUL MCDANIEL Rep #: [id number] : 1995 Provider: Dr. Indigo Vallejo DO Age/Sex: 27/F Location: [facility] Status: Signed Intake Vital Signs 06/15/23 15:58 07/12/23 15:50 07/12/23 15:53 Height 5 ft 9 in 5 ft 9 in 5 ft 9 in Weight: 240 lb BMI 35.4 BP 129/82 H Intake Visit Reasons: 21 WK OB Etl Tester Required: No Is patient in pain?: No Allergies No Known Allergies Allergy (Verified 07/12/23 15:50) Medications docosahexaenoic acid 200 mg capsule ( DHA) mg PO 04/18/23 [History Confirmed 07/12/23] ondansetron 4 mg disintegrating tablet 4 mg PO Q8H PRN nausea and vomiting #30 tabs 07/03/23 [Rx Confirmed 07/12/23] metoclopramide HCl 10 mg tablet (Reglan) 10 mg PO Q6H PRN nausea and vomiting #45 tabs 07/12/23 [Rx Confirmed 07/12/23] Last Menstrual Period: 02/10/23 Zika: Zika virus screening: Negative : No PFSH PFSH Family History Father Hodgkins lymphoma Social History current occupational status: employed 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 Date Name GA/Weeks Outcome Route Bth Weight Infant Gen Labor Lgth Anesthesia Del Locatn Provider FOB 02/12/21 [place] 39 live - full term vacuum 7lbs 3oz Pomerene D r. Vaccaririchelle Tao Delivery Date: 02/12/21 Last Updated by: Alison [place] No issues during or delivery other than vacuum. HPI 21 WK OB Details: MITUL MCADNIEL is a 27 year old who presents for routine OB visit. OB Visit SIVAKUMAR Calculator Estimated Delivery Date Method Current WG Current Estimate 11/17/23 LMP (Certain) 21w 5d Expected Delivery Route/Plan Labor Preferences- CB/BF classes: [] labor support person: [] labor intervention preferences: [] pain management options preferred: [] cut cord/dad catch: [] : [] PP control planned: [] discussed possible routes of delivery and associated risks: [] special requests: [] Specific Issue/Plans Covid status: [] Flu vaccine: [] Tdap vaccine: [] Rhogam: [] LARC form signed: [] Problem list reviewed and updated with the most current plan of care details and appropriate orders placed. Relevant counseling for the gestational age provided. Continue routine care and follow up unless otherwise noted in visit notes/problem list details Initial Weight: 236 lb Date -???-???-???-???-??? -???-???-???-???-??? -???-???- EGA Weight BP Urine Prot -???-???-???-???-??? -???-???-???-???-??? -???-???- Glucose FHR FuHt Pres Dilation -???-???-???-???-??? -???-???-???-???-??? -???-???- Effaced St Visit Note 04/18/23 -???-???-???-???-??? -???-???-???-???-??? -???-???- 9w 4d 236 lb (+0 oz) 120/78 -???-???-???-???-??? -???-???-???-???-??? -???-???- 169 -???-???-???-???-??? -???-???-???-???-??? -???-???- LC- 2.7CRL c on with LMP. SIVAKUMAR 11/17/2023.reviewed with SM. BMI >30 early glucose. considering NIPT. 05/18/23 -???-???-???-???-??? -???-???-???-???-??? -???-???- 13w 6d 233 lb 2 oz (-2 lb 14 oz) 120/77 Negative -???-???-???-???-??? -???-???-???-???-??? -???-???- Negative 144 -???-???-???-???-??? -???-???-???-???-??? -???-???- JV- decided against nipt JV- decided against nipt. nausea i s improving but not gone. [place] going [place] 06/15/23 -???-???-???-???-??? -???-???-???-???-??? -???-???- 17w 6d 233 lb 6 oz (-2 lb 10 oz) 120/78 Negative -???-???-???-???-??? -???-???-???-???-??? -???-???- Negative 146 -???-???-???-???-??? -???-???-???-???-??? -???-???- -No VB. De clines NIPT and flu vaccine. Still using zofran for nausea. 07/12/23 -???-???-???-???-??? -???-???-???-???-??? -???-???- 21w 5d 240 lb (+4 lb) 129/82 -???-???-???-???-??? -???-???-???-???-??? -???-???- 141 -???-???-???-???-??? -???-???-???-???-??? -???-???- JV- nausea s till present and is taking zofran frequently. This is causing constipation which is now (more content not included)... Normal [facility] Laboratory - Chemistry and C hemistry - challengeon 06-15-2023 Glucose Ql (U) Negative [facility] Laboratory - Urinalysison Protein Ql (U) Negative [facility] Repair Welder Office Visit Reporton 06-15-2023 Repair Welder Office Visit Report [facility] [address] [place] [address] OFFICE VISIT Date of Service: 06/15/23 MR#: [id number] Acct: [id number] Name: MITUL MCDANIEL Rep #: [id number] : 1995 Provider: MYRIAM gorman Age/Sex: 27/F Location: [facility] Status: Signed Intake Vital Signs 04/18/23 11:19 05/18/23 15:44 06/15/23 15:50 06/15/23 15:58 Height 5 ft 9 in 5 ft 9 in 5 ft 9 in 5 ft 9 in Weight: 233 lb 6 oz BMI 34.4 BP 120/78 Intake Visit Reasons: 17 WK OB Chief Complaint: 17 Week OB Etl Tester Required: No Is patient in pain?: No Allergies No Known Allergies Allergy (Verified 06/15/23 15:48) Medications docosahexaenoic acid 200 mg capsule ( DHA) mg PO 04/18/23 [History Confirmed 06/15/23] ondansetron 4 mg disintegrating tablet 4 mg PO Q8H PRN nausea and vomiting #30 tabs 06/13/23 [Rx Confirmed 06/15/23] Last Menstrual Period: 02/10/23 Zika: Zika virus screening: Negative : No PFSH PFSH Family History Father Hodgkins lymphoma Social History current occupational status: employed 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 Date Name GA/Weeks Outcome Route Bth Weight Gen Labor Lgth Anesthesia Del Locatn Provider FOB 02/12/21 [place] 39 live - full term vacuum 7lbs 3oz Pomtammy payton Sudhiryoko Dinh Delivery Date: 02/12/21 Last Updated by: Alison [place] No issues during or delivery other than vacuum. HPI 17 WK OB Details: MITUL MCDANIEL is a 27 year old who presents for routine OB visit. OB Visit SIVAKUMAR Calculator Estimated Delivery Date Method Current WG Current Estimate 11/17/23 LMP (Certain) 17w 6d Expected Delivery Route/Plan Labor Preferences- CB/BF classes: [] labor support person: [] labor intervention preferences: [] pain management options preferred: [] cut cord/dad catch: [] : [] PP control planned: [] discussed possible routes of delivery and associated risks: [] special requests: [] Specific Issue/Plans Covid status: [] Flu vaccine: [] Tdap vaccine: [] Rhogam: [] LARC form signed: [] Problem list reviewed and updated with the most current plan of care details and appropriate orders placed. Relevant counseling for the gestational age provided. Continue routine care and follow up unless otherwise noted in visit notes/problem list details Initial Weight: 236 lb Date -???-???-???-???-??? -???-???-???-???-??? -???-???- EGA Weight BP Urine Prot -???-???-???-???-??? -???-???-???-???-??? -???-???- Glucose FHR FuHt Pres Dilation -???-???-???-???-??? -???-???-???-???-??? -???-???- Effaced St Visit Note 04/18/23 -???-???-???-???-??? -???-???-???-???-??? -???-???- 9w 4d 236 lb (+0 oz) 120/78 -???-???-???-???-??? -???-???-???-???-??? -???-???- 169 -???-???-???-???-??? -???-???-???-???-??? -???-???- LC- 2.7CRL c on with LMP. SIVAKUMAR 11/17/2023.reviewed with SM. BMI >30 early glucose. considering NIPT. 05/18/23 -???-???-???-???-??? -???-???-???-???-??? -???-???- 13w 6d 233 lb 2 oz (-2 lb 14 oz) 120/77 Negative -???-???-???-???-??? -???-???-???-???-??? -???-???- Negative 144 -???-???-???-???-??? -???-???-???-???-??? -???-???- JV- decided against nipt JV- decided against nipt. nausea i s improving but not gone. they are going on [place] to [place] 06/15/23 -???-???-???-???-??? -???-???-???-???-??? -???-???- 17w 6d 233 lb 6 oz (-2 lb 10 oz) 120/78 Negative -???-???-???-???-??? -???-???-???-???-??? -???-???- Negative 146 -???-???-???-???-??? -???-???-???-???-??? -???-???- MH-No VB. De clines NIPT and flu vaccine. Still using zofran for nausea. [facility] First Trimester First Trimester: Desire for , Alcohol, Tobacco Cessation, Illicit/Recreational Drug/Substance Use, Intimate Partner Violence, Barriers to care, Unstable Housing, Communication Barriers, Environmental/Work Hazards, Anticipated Course of Care, Toxoplasmosis Precations, Use of Any medications, Sexual activity, Exercise, Dental Car (more content not included)... Normal [facility] Laboratory - Chemistry and C hemistry - challengeon 05-18-2023 Glucose Ql (U) Negative [facility] Laboratory - Urinalysison Protein Ql (U) Negative [facility] Repair Welder Office Visit Reporton 05-18-2023 Repair Welder Office Visit Report [facility] [place] [facility] [address] [place] [address]. [address] [place] [address] OFFICE VISIT Date of Service: 05/18/23 MR#: [id number] Acct: [id number] Name: MITUL MCDANIEL Rep #: [id number] : 1995 Provider: Dr. Indigo Vallejo DO Age/Sex: 27/F Location: [facility] Status: Signed Intake Vital Signs 04/18/23 11:19 05/18/23 15:42 05/18/23 15:44 Height 5 ft 9 in 5 ft 9 in 5 ft 9 in Weight: 233 lb 2 oz BMI 34.4 BP 120/77 Intake Visit Reasons: 13 WK OB Etl Tester Required: No Is patient in pain?: No Allergies No Known Allergies Allergy (Verified 05/18/23 15:42) Medications docosahexaenoic acid 200 mg capsule ( DHA) mg PO 04/18/23 [History Confirmed 05/18/23] ondansetron 4 mg disintegrating tablet 4 mg PO Q8H PRN nausea and vomiting #30 tabs 05/09/23 [Rx Confirmed 05/18/23] Last Menstrual Period: 02/10/23 Zika: Zika virus screening: Negative : No PFSH PFSH Family History Father Hodgkins lymphoma Social History current occupational status: employed 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 Date Name GA/Weeks Outcome Route Bth Weight Gen Labor Lgth Anesthesia Del Locatn Provider FOB 02/12/21 [place] 39 live - full term vacuum 7lbs 3oz Pomerene D r. Vaccariello Dinh Delivery Date: 02/12/21 Last Updated by: Alison [place] No issues during or delivery other than vacuum. HPI 13 WK OB Details: MITUL MCDANIEL is a 27 year old who presents for routine OB visit. OB Visit SIVAKUMAR Calculator Estimated Delivery Date Method Current WG Current Estimate 11/17/23 LMP (Certain) 13w 6d Expected Delivery Route/Plan Labor Preferences- CB/BF classes: [] labor support person: [] labor intervention preferences: [] pain management options preferred: [] cut cord/dad catch: [] : [] PP control planned: [] discussed possible routes of delivery and associated risks: [] special requests: [] Specific Issue/Plans Covid status: [] Flu vaccine: [] Tdap vaccine: [] Rhogam: [] LARC form signed: [] Problem list reviewed and updated with the most current plan of care details and appropriate orders placed. Relevant counseling for the gestational age provided. Continue routine care and follow up unless otherwise noted in visit notes/problem list details Initial Weight: 236 lb Date -???-???-???-???-??? -???-???-???-???-??? -???-???- EGA Weight BP Urine Prot -???-???-???-???-??? -???-???-???-???-??? -???-???- Glucose FHR FuHt Pres Dilation -???-???-???-???-??? -???-???-???-???-??? -???-???- Effaced St Visit Note 04/18/23 -???-???-???-???-??? -???-???-???-???-??? -???-???- 9w 4d 236 lb (+0 oz) 120/78 -???-???-???-???-??? -???-???-???-???-??? -???-???- 169 -???-???-???-???-??? -???-???-???-???-??? -???-???- LC- 2.7CRL c on with LMP. SIVAKUMAR 11/17/2023.reviewed with SM. BMI >30 early glucose. considering NIPT. 05/18/23 -???-???-???-???-??? -???-???-???-???-??? -???-???- 13w 6d 233 lb 2 oz (-2 lb 14 oz) 120/77 Negative -???-???-???-???-??? -???-???-???-???-??? -???-???- Negative 144 -???-???-???-???-??? -???-???-???-???-??? -???-???- JV- decided against nipt JV- decided against nipt. nausea i s improving but not gone. they are going on naheed to [facility] First Trimester First Trimester: Desire for , Alcohol, Tobacco Cessation, Illicit/Recreational Drug/Substance Use, Intimate Partner Violence, Barriers to care, Unstable Housing, Communication Barriers, Environmental/Work Hazards, Anticipated Course of Care, Toxoplasmosis Precations, Use of Any medications, Sexual activity, Exercise, Dental Care, Sauna/Hot tub use, Seat Belt use, Childbirth classes/Hospital facilities, , Travel, Indications for Ultrasound and Screening for Aneuploidy Diagnostics Diagnostics Diagnostics: Blood Type O POSITIVE Antibody Screen NEGATIVE Glucose 1 Hr 50 gm 108 mg/dL (70-140) HIV 1 2 Antibody Non-Reactive (more content not included)... Normal [facility] Absolute lymphocyte countOrd ered By: Judy Villa on 05-04-2023 Lymphocytes Auto (Unsp spec) [#/Vol] 1.94 10*3/uL 0.83-4.51 [facility] Basophil percentageOrdered B y: Judy Villa on 05-04-2023 Basophils/100 WBC (Bld) 0.4 % 0-[address] [facility] Eosinophils/100 WBC (Bld) 1.5 % 0-5 [facility] Neutrophils (Bld) [#/Vol] 4.7 10*3/uL 2.0-7.7 [facility] Neutrophils/100 WBC (Bld) 62.0 % 47-70 [facility] WBC (Bld) [#/Vol] 7.5 10*3/uL 4.4-11.0 [facility] Blood erythrocytes count (nu mber/volume)Ordered By: Judy Villa on 05-04-2023 RBC (Bld) [#/Vol] 4.29 10*6/uL 4.2-5.4 [facility] Blood hemoglobin measurement (mass/volume)Ordered By: Judy Villa on 05-04-2023 Hemoglobin (Bld) [Mass/Vol] 11.9 g/dL 12.0-15.0 [facility] Blood lymphocytes/100 leukoc ytesOrdered By: Judy Villa on 05-04-2023 Lymphocytes/100 WBC (Bld) 25.8 % 19-41 [facility] Blood monocytes/100 leukocyt esOrdered By: Judy Villa on 05-04-2023 Monocytes/100 WBC (Bld) 10.0 % 0-[address] [facility] Blood platelet mean volumeOr dered By: Judy Villa on 05-04-2023 Platelet mean volume (Bld) [Entitic vol] 9.3 fL 6.2-12.0 [facility] CBC W/Diff, Automatedon 04-13 Absolute Lymph 1.94 X10 3/uL Normal 0.83-4.51 [facility] Comment on above: Performed By: #### L 100.0100, L3890.6005, L501.0250, L509.4005, L3890.6300, L509.8000, BTS, L3890.6100 ####[facility] [address] [place], [address] Absolute Neut 4.7 X10 3/uL Normal 2.0-7.7 [facility] Comment on above: Performed By: #### L 100.0100, L3890.6005, L501.0250, L509.4005, L3890.6300, L509.8000, BTS, L3890.6100 ####[facility] [address] [place], [address] Basophils/100 WBC (Bld) 0.4 % Normal 0-[address] [facility] Comment on above: Performed By: #### L 100.0100, L3890.6005, L501.0250, L509.4005, L3890.6300, L509.8000, BTS, L3890.6100 ####[facility] [address] [place], [address] Eosinophils/100 WBC (Bld) 1.5 % Normal 0-5 [facility] Comment on above: Performed By: #### L 100.0100, L3890.6005, L501.0250, L509.4005, L3890.6300, L509.8000, BTS, L3890.6100 ####[facility] [address] [place], [address] Erythrocyte distribution width (RBC) [Ratio] 13.5 % Normal 11.6-14.6 [facility] Comment on above: Performed By: #### L 100.0100, L3890.6005, L501.0250, L509.4005, L3890.6300, L509.8000, BTS, L3890.6100 ####[facility] [address] [place], [address] Hematocrit (Bld) [Volume fraction] 36.8 % Low 37-47 [facility] Comment on above: Performed By: #### L 100.0100, L3890.6005, L501.0250, L509.4005, L3890.6300, L509.8000, BTS, L3890.6100 ####[facility] [address] [place], [address] Hemoglobin (Bld) [Mass/Vol] 11.9 g/dL Low 12.0-15.0 [facility] Comment on above: Performed By: #### L 100.0100, L3890.6005, L501.0250, L509.4005, L3890.6300, L509.8000, BTS, L3890.6100 ####[facility] [address] [place], [address] IG% 0.300 Normal 0.0-0.9 [facility] Comment on above: Result Comment: IG% - Immature Granulocytes (promyelocytes, myelocytes and metamyelocytes) > 1% indicates that a LEFT SHIFT is Present. Performed By: #### L 100.0100, L3890.6005, L501.0250, L509.4005, L3890.6300, L509.8000, BTS, L3890.6100 ####[facility] [address] [place], [address] Lymphocytes/100 WBC (Bld) 25.8 % Normal 19-41 [facility] Comment on above: Performed By: #### L 100.0100, L3890.6005, L501.0250, L509.4005, L3890.6300, L509.8000, BTS, L3890.6100 ####[facility] [address] [place], [address] MCH (RBC) [Entitic mass] 27.7 pg Normal 27.0-32.0 [facility] Comment on above: Performed By: #### L 100.0100, L3890.6005, L501.0250, L509.4005, L3890.6300, L509.8000, BTS, L3890.6100 ####[facility] [address] [place], [address] MCHC (RBC) [Mass/Vol] 32.3 g/dL Normal 32-36 [facility] Comment on above: Performed By: #### L 100.0100, L3890.6005, L501.0250, L509.4005, L3890.6300, L509.8000, BTS, L3890.6100 ####[facility] [address] [place], [address] MCV (RBC) [Entitic vol] 85.8 fL Normal 81-[address] [facility] Comment on above: Performed By: #### L 100.0100, L3890.6005, L501.0250, L509.4005, L3890.6300, L509.8000, BTS, L3890.6100 ####[facility] [address] [place], [address] Monocytes/100 WBC (Bld) 10.0 % Normal 0-[address] [facility] Comment on above: Performed By: #### L 100.0100, L3890.6005, L501.0250, L509.4005, L3890.6300, L509.8000, BTS, L3890.6100 ####[facility] [address] [place], [address] Neutrophils/100 WBC (Bld) 62.0 % Normal 47-70 [facility] Comment on above: Performed By: #### L 100.0100, L3890.6005, L501.0250, L509.4005, L3890.6300, L509.8000, BTS, L3890.6100 ####[facility] [address] [place], [address] Nucleated RBC (Bld) [#/Vol] 0 10*3/uL Normal 0-5 [facility] Comment on above: Performed By: #### L 100.0100, L3890.6005, L501.0250, L509.4005, L3890.6300, L509.8000, BTS, L3890.6100 ####[facility] [address] [place], [address] Platelet mean volume (Bld) [Entitic vol] 9.3 fL Normal 6.2-12.0 [facility] Comment on above: Performed By: #### L 100.0100, L3890.6005, L501.0250, L509.4005, L3890.6300, L509.8000, BTS, L3890.6100 ####[facility] [address] [place], [address] Platelets (Bld) [#/Vol] 273 10*3/uL Normal 150-450 [facility] Comment on above: Performed By: #### L 100.0100, L3890.6005, L501.0250, L509.4005, L3890.6300, L509.8000, BTS, L3890.6100 ####[facility] [address] [place], [place], [address] RBC (Bld) [#/Vol] 4.29 10*6/uL Normal 4.2-5.4 [facility] Comment on above: Performed By: #### L 100.0100, L3890.6005, L501.0250, L509.4005, L3890.6300, L509.8000, BTS, L3890.6100 ####[facility] [address] [place], [place], [phone](000) RDW SD 42.3 fl Normal 35.1-43.9 [facility] Comment on above: Performed By: #### L 100.0100, L3890.6005, L501.0250, L509.4005, L3890.6300, L509.8000, BTS, L3890.6100 ####[facility] [address] [place], [address] WBC (Bld) [#/Vol] 7.5 10*3/uL Normal 4.4-11.0 [facility] Comment on above: Performed By: #### L 100.0100, L3890.6005, L501.0250, L509.4005, L3890.6300, L509.8000, BTS, L3890.6100 ####[facility] [address] [place], [place], [address] Determination of erythrocyte mean corpuscular volume (MCV)Ordered By: Judy Villa on 05-04-2023 MCV (RBC) [Entitic vol] 85.8 fL 81-[address] [facility] Gestational diabetes screen 1-hour screen with 50g oral glucose loadOrdered By: Judy Villa on 05-04-2023 Glucose 1 Hr post 50 g glucose PO [Mass/Vol] 108 mg/dL 70-140 [facility] Glucose Challenge Gest 1H 50 ally 05-04-2023 GLU GEST 50g 1H 108 mg/dL Normal 70-140 [facility] Comment on above: Performed By: #### L 100.0100, L3890.6005, L501.0250, L509.4005, L3890.6300, L509.8000, BTS, L3890.6100 ####[facility] [address] [place], [address] HIV - WCHon 05-04-2023 HIV Non-Reactive Normal Nonreactive [facility] Comment on above: Order Comment: Reaso n for Exam: Performed By: #### L 100.0100, L3890.6005, L501.0250, L509.4005, L3890.6300, L509.8000, BTS, L3890.6100 ####[facility] [address] [place], [address] HIV 1 and HIV-2 antibody ass ay with HIV-1 p24 antigen detectionOrdered By: Judy Villa on 05-04-2023 HIV 1+2 Ab+HIV1 p24 Ag IA Ql Non-Reactive Nonreactive [facility] Hematocrit Auto (Bld) [Volum e fraction]Ordered By: Judy Villa on 05-04-2023 Hematocrit (Bld) [Volume fraction] 36.8 % 37-47 [facility] Hepatitis B Surface Antigeno n 05-04-2023 HEP B Surf Ag Non-Reactive Normal Nonreactive [facility] Comment on above: Order Comment: Reaso n for Exam: Performed By: #### L 100.0100, L3890.6005, L501.0250, L509.4005, L3890.6300, L509.8000, BTS, L3890.6100 ####[facility] [address] [place], [address] Hepatitis C Antibodyon 05-04 Hepatitis C Ab Non-Reactive Normal Nonreactive [facility] Comment on above: Order Comment: Reaso n for Exam: Result Comment: Non Reactive: < 0.8 Equivocal: >/= 0.8 to < 1.0 Reactive: >/= 1.[address] [facility] recommends that a reactive/equivocal HCV antibody result be followed up by the HCV Nucleic Acid Amplification test (264980) Performed By: #### L 100.0100, L3890.6005, L501.0250, L509.4005, L3890.6300, L509.8000, BTS, L3890.6100 ####[facility] [address] [place], [address] L509.8000on 05-04-2023 Syphilis Abs Non-Reactive Normal [facility] Comment on above: Order Comment: Reaso n for Exam: Performed By: #### L 100.0100, L3890.6005, L501.0250, L509.4005, L3890.6300, L509.8000, BTS, L3890.6100 ####[facility] [address] [facility] [address] [place], [place], [phone] Laboratory - Hematology and Cell countsOrdered By: Judy Villa on 05-04-2023 Erythrocyte distribution width (RBC) [Entitic vol] 42.3 fL 35.1-43.9 [facility] Erythrocyte distribution width (RBC) [Ratio] 13.5 % 11.6-14.6 [facility] Immature granulocytes/100 WBC (Bld) 0.300 % 0.0-0.9 [facility] Comment on above: IG% - Immature Granu locytes (promyelocytes, myelocytes and metamyelocytes) > 1% indicates that a LEFT SHIFT is Present. MCH (RBC) [Entitic mass] 27.7 pg 27.0-32.0 [facility] Nucleated RBC/100 WBC (Bld) [Ratio] 0 % 0-5 [facility] MCHC Auto (RBC) [Mass/Vol]Or dered By: Judy Villa on 05-04-2023 MCHC (RBC) [Mass/Vol] 32.3 g/dL 32-36 [facility] No Panel InformationOrdered By: Judy Villa on 05-04-2023 Hepatitis B Surface Antigen Non-Reactive Nonreactive [facility] Hepatitis C Antibody Non-Reactive Nonreactive [facility] Comment on above: Non Reactive: < 0.8 Equivocal: >/= 0.8 to < 1.0 Reactive: >/= 1.0The CDC recommends that a reactive/equivocal HCV antibody result be followed up by the HCV Nucleic Acid Amplificationtest (033035) Rubella IgG Antibody Reactive Nonreactive [facility] Comment on above: Antibody Results Int erpretation of Immune Status Non Reactive Presumed Non-Immune Equivocal Equivocal Reactive Presumed Immune Platelets bldOrdered By: Nury Villa on 05-04-2023 Platelets (Bld) [#/Vol] 273 10*3/uL 150-450 [facility] Rubella IgGon 05-04-2023 Rubella IgG Reactive Normal Nonreactive [facility] Comment on above: Order Comment: Reaso n for Exam: Result Comment: Anti body Results Interpretation of Immune Status Non Reactive Presumed Non-Immune Equivocal Equivocal Reactive Presumed Immune Performed By: #### L 100.0100, L3890.6005, L501.0250, L509.4005, L3890.6300, L509.8000, BTS, L3890.6100 ####[facility] [address] [place], [place], [address] Serum Treponema species anti body detectionOrdered By: Judy Villa on 05-04-2023 Treponema sp Ab Ql (S) Non-Reactive [facility] Type AND Screenon 05-04-2023 ABO and Rh group Nom (Bld) Blood group O Rh(D) positive Normal [facility] Comment on above: Order Comment: PN Performed By: #### L 100.0100, L3890.6005, L501.0250, L509.4005, L3890.6300, L509.8000, BTS, L3890.6100 ####[facility] [address], [address] Chlamydia/GC JASON aptimaon CHLAMY,NUC ACID Negative Normal Negative [facility] Comment on above: Performed By: #### M 100.2200, L7000.1800 ####[facility] [address] [place], [place], [address] GC BY NUC ACID Negative Normal Negative [facility] Comment on above: Result Comment: Perf ormed at: =G - [facility] [address] [place], [place] [id number] Counter Tacker: Ama Macias MD, Phone: [phone] Performed By: #### M 100.2200, L7000.1800 ####[facility] [address] [place], [address] Urine Cultureon 04-19-2023 URC Culture exhibits no growth. Normal [facility] Comment on above: Performed By: #### M 100.2200, L7000.1800 ####[facility] [address] [place], [place], [address] Chlamydia trachomatis rRNA d etection by probe and target amplification methodOrdered By: Judy Villa on 04-18-2023 C. trachomatis rRNA JASON+probe Ql (Unsp spec) Negative Negative [facility] Culture, urineOrdered By: Kisha Villa on 04-18-2023 Bacteria identified Cx Nom (U) Culture exhibits no growth. [facility] Bacteria identified Cx Nom (U) Culture exhibits no growth. [facility] Laboratory - Microbiology an d Antimicrobial susceptibilityOrdered By: Judy Villa on 04-18-2023 N. gonorrhoeae DNA JASON+probe Ql (Unsp spec) Negative Negative [facility] Comment on above: Performed at: =G - [facility] [address] [place], [place] [id number] Director: Ama Macias MD, Phone: [phone] Repair Welder Office Visit Reporton 04-18-2023 Repair Welder Office Visit Report [facility] [place] [facility] [address] [place], [place] [address] OFFICE VISIT Date of Service: 04/18/23 MR#: [id number] Acct: [id number] Name: MITUL MCDANIEL Rep #: [id number] : 1995 Provider: LAURA singh Age/Sex: 27/F Location: [facility] Status: Signed Intake Vital Signs 04/18/23 11:19 Height 5 ft 9 in Weight: 236 lb BMI 34.8 BP 120/78 Intake Visit Reasons: NOB LMP: 02/10 Etl Tester Required: No Is patient in pain?: No Allergies No Known Allergies Allergy (Unverified 04/18/23 11:31) Medications docosahexaenoic acid 200 mg capsule ( DHA) mg PO 04/18/23 [History Confirmed 04/18/23] ondansetron 4 mg disintegrating tablet 4 mg PO Q8H PRN nausea and vomiting #30 tabs 04/18/23 [Rx Confirmed 04/18/23] Last Menstrual Period: 02/10/23 Zika: Zika virus screening: Negative : No PFSH PFSH Family History (Updated 04/18/23 @ 11:32 by Alison [place]) Father Hodgkins lymphoma Social History (Updated 04/18/23 @ 12:01 by Judy Vlila CNM) current occupational status: employed 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 Date Name GA/Weeks Outcome Route Bth Weight Gen Labor Lgth Anesthesia Del Locatn Provider FOB 02/12/21 [place] 39 live - full term vacuum 7lbs 3oz Pomtammy Tao Delivery Date: 02/12/21 Last Updated by: Alison [place] No issues during or delivery other than vacuum. HPI NOB LMP: 02/10 Details: MITUL MCDANIEL is a 27 year old who presents for New OB visit. OB Visit SIVAKUMAR Calculator Estimated Delivery Date Method Current WG Current Estimate 11/17/23 LMP (Certain) 9w 4d Expected Delivery Route/Plan Labor Preferences- CB/BF classes: [] labor support person: [] labor intervention preferences: [] pain management options preferred: [] cut cord/dad catch: [] : [] PP control planned: [] discussed possible routes of delivery and associated risks: [] special requests: [] Specific Issue/Plans Covid status: [] Flu vaccine: [] Tdap vaccine: [] Rhogam: [] LARC form signed: [] Problem list reviewed and updated with the most current plan of care details and appropriate orders placed. Relevant counseling for the gestational age provided. Continue routine care and follow up unless otherwise noted in visit notes/problem list details Initial Weight: 236 lb Date -???-???-???-???-??? -???-???-???-???-??? -???-???- EGA Weight BP Urine Prot -???-???-???-???-??? -???-???-???-???-??? -???-???- Glucose FHR FuHt Pres Dilation -???-???-???-???-??? -???-???-???-???-??? -???-???- Effaced St Visit Note 04/18/23 -???-???-???-???-??? -???-???-???-???-??? -???-???- 9w 4d 236 lb (+0 oz) 120/78 -???-???-???-???-??? -???-???-???-???-??? -???-???- 169 -???-???-???-???-??? -???-???-???-???-??? -???-???- LC- 2.7CRL c on with LMP. SIVAKUMAR 11/17/2023.reviewed with SM. BMI >30 early glucose. considering NIPT. Menstrual History Last Menstrual Period: 02/10/23 Reported LMP: definite Normal amount/duration: Yes On hormonal BC at conception: No hCG+: 03/08/23 Antepartum Record Genetic Screening: Congenital Heart Defect: Other, Neural Tube Defect: Other, Hemoglobinopathy Or Carrier: Other, Cystic Fibrosis: Other, Chromosome Abnormality: Other, Tomasz-Sachs: Other, Hemophilia: Other, Intellectual Disability/Autism: Other, Recurrent Loss/Stillbirth: Patient (pt mom with miscarriage x3), Other Structural Defect: Other, Other Genetic Disease: Other and Maternal Metabolic Disorder: Other Infection History: Live with someone with TB or Exposed to TB: No, Patient or Partner has history of Genital Herpes: No, Rash or Viral illness since last mentrual period: No, Prior GBS-Infected child: No, History of STD: Yes (had chlmydia(2018, treated).), HIV Infection: No, History of Hepatitis: No, Recent travel outside of : No, Concern for hepatitis exposure: No and Varicella immune: Yes (had chicken pox) Medical History Medical History: Positive: Depression/postpartu m depression (2015, d/c meds when found out was .) and Negativ (more content not included)... Normal [facility] THINPREP PAP REFLEX HPV mRNA E6/E7on 04-23-2021 CLINICAL INFORMATION: Normal [employer] Comment on above: Result Comment: Post Performed By: #### 9 0932 #### [employer] [place] [id number] Central Supply Clerk: Bossman Curran MD COMMENT Normal [employer] Comment on above: Result Comment: EXPL ANATORY NOTE: The Pap is a screening test for cervical cancer. It is not a diagnostic test and is subject to false negative and false positive results. It is most reliable when a satisfactory sample, regularly obtained, is submitted with relevant clinical findings and history, and when the Pap result is evaluated along with historic and current clinical information. Performed By: #### 9 0932 #### [employer] [address] Central Supply Clerk: Bossman Curran MD MILL TENDER: Normal [facility] Comment on above: Result Comment: MLH, CT(ASCP) CT screening location: [place] [address]. Performed By: #### 9 0932 #### [facility]-[address], [address] [place], [place] [id number] Central Supply Clerk: Bossman Curran MD INTERPRETATION/RESULT: Normal [facility] Comment on above: Result Comment: Nega tive for intraepithelial lesion or malignancy. Performed By: #### 9 0932 #### [facility]-[address], [address] [place], [place] [id number] Central Supply Clerk: Bossman Curran MD LMP: Normal [facility] Comment on above: Result Comment: 09/2019 Performed By: #### 9 0932 #### [facility]-[address], [address] [place], [place] [address] Central Supply Clerk: Bossman Curran MD PREV. BX: Normal [facility] Comment on above: Result Comment: None given Performed By: #### 9 0932 #### [facility], [address] [place] [address] Central Supply Clerk: Bossman Curran MD PREV. PAP: Normal [facility] Comment on above: Result Comment: None given Performed By: #### 9 0932 #### [facility]-[address], [address] [place], [place] [id number] Central Supply Clerk: Bossman Curran MD SOURCE: Normal [facility] Comment on above: Result Comment: Endo cervix Performed By: #### 9 0932 #### [facility]-[address], [address] [place], [place] [address] Central Supply Clerk: Bossman Curran MD STATEMENT OF ADEQUACY: Normal [facility] Comment on above: Result Comment: Sati sfactory for evaluation. Endocervical/transformation zone component present. Performed By: #### 9 0932 #### [facility]-[address], [address] [place], [place] [address] Central Supply Clerk: Bossman Curran MD CBC + DIFFon 02-13-2021 Baso # 0.00 x10EE3/UL Normal 0.00 - 0.10 [facility] Comment on above: Performed By: #### 2 70444 #### [facility],[address] [place] [address] Basophils/100 WBC (Bld) 0.4 % Normal 0.0 - 2.0 [facility] Comment on above: Performed By: #### 2 97212 #### [facility],[address] [place] [address] CBC + DIFF Normal [facility] Comment on above: Result Comment: CBC- COMPLETE BLOOD COUNT Performed By: #### 2 40790 #### [facility],[address] [place] [address] EO # 0.20 x10EE3/UL Normal 0.00 - 0.50 [facility] Comment on above: Performed By: #### 2 93931 #### [facility],[address] [place] [address] Eosinophils/100 WBC (Bld) 1.5 % Normal 0.0 - 7.0 [facility] Comment on above: Performed By: #### 2 17850 #### [facility],[address] [place] [address] Erythrocyte distribution width (RBC) [Ratio] 14.9 % Normal 12.0 - 15.6 [facility] Comment on above: Performed By: #### 2 51321 #### [facility],[address] [place] [address] Hematocrit (Bld) [Volume fraction] 29.3 % Low 34.0 - 46.0 [facility] Comment on above: Performed By: #### 2 38369 #### [facility],[address] [place] [address] Hemoglobin (Bld) [Mass/Vol] 9.9 g/dL Low 12.0 - 16.0 [facility] Comment on above: Performed By: #### 2 22923 #### [facility],[address] [place] [address] Lymph # 2.60 x10EE3/UL Normal 0.80 - 2.80 [facility] Comment on above: Performed By: #### 2 27057 #### [facility],[address] [place], [place] [address] Lymphocytes/100 WBC (Bld) 24.9 % Normal 20.0 - 45.0 [facility] Comment on above: Performed By: #### 2 25466 #### [facility],[address] [place], [place] [address] MANUAL DIFF N/A Normal [facility] Comment on above: Performed By: #### 2 27172 #### [facility],[address] [place] [address] MCH (RBC) [Entitic mass] 29 pg Normal 27 - 33 [facility] Comment on above: Performed By: #### 2 79866 #### [facility],[address] [place] [address] MCHC 34 X10 3 Normal 32 - 36 [facility] Comment on above: Performed By: #### 2 72908 #### [facility],[address] [place] [address] MCV (RBC) [Entitic vol] 87 fL Normal 80 - 99 [facility] Comment on above: Performed By: #### 2 21373 #### [facility],[address] [place] [address] Giles # 0.80 x10EE3/UL Normal 0.20 - 1.00 [facility] Comment on above: Performed By: #### 2 75253 #### [facility],[address] [place] [address] MONOS % 8.2 % Normal 0.0 - 10.0 [facility] Comment on above: Performed By: #### 2 54203 #### [facility],[address] [place] [address] Morphology Julio (Bld) [Interp] N/A Normal [facility] Comment on above: Result Comment: {CD] Performed By: #### 2 10688 #### [facility],[address] [place] [address] Neut # 6.70 x10EE3/UL Normal 1.50 - 7.10 [facility] Comment on above: Performed By: #### 2 [address]253 #### [place] [address] Neutrophils/100 WBC (Bld) 65.0 % Normal 46.0 - 76.0 [facility] Comment on above: Performed By: #### 2 30116 #### [facility],[address] [place] [address] PLATELET 215 x10EE3/UL Normal 150 - 450 [facility] Comment on above: Performed By: #### 2 95284 #### [facility],[address] [place] [address] Platelet mean volume (Bld) [Entitic vol] 8.6 fL Normal 6.6 - 10.5 [facility] Comment on above: Result Comment: AUTO MATED DIFFERENTIAL Performed By: #### 2 10040 #### [facility],[address] [place] [address] RBC 3.39 x 10EE6/UL Low 4.10 - 5.[address] [facility] Comment on above: Performed By: #### 2 48953 #### [address] [address] WBC 10.3 x 10EE3/UL Normal 4.5 - 10.8 [facility] Comment on above: Performed By: #### 2 20082 #### [facility],[address] [place] [address] BB TYPE & SCREENon 06-03-202 1 ABO O Normal [facility] Comment on above: Performed By: #### 2 18934 #### [facility],[address] [place] [address] ANTIBODY SCR Negative Normal [facility] Comment on above: Performed By: #### 2 79744 #### [facility],[address] [place] [address] BB TYPE & SCREEN Normal [facility] Comment on above: Result Comment: TYPE , Rh, AND SCREEN Performed By: #### 2 66573 #### [facility],[address] [place] [address] Rh Nom (Bld) Positive Normal [facility] Comment on above: Performed By: #### 2 16153 #### [place] [facility],[address] [place] [address] 04407 URINALYSISon 02-12-2021 Amorphous NONE Normal [facility] Comment on above: Performed By: #### 2 85043 #### [facility],[address] [place] [address] 89023 Bacteria 2+ Normal [facility] Comment on above: Performed By: #### 2 67204 #### [facility],[address] [place] [address] 55239 Bilirubin Ql (U) Negative Normal NORMAL: NEGATIVE [facility] Comment on above: Performed By: #### 2 48832 #### [facility],[address] [place] [address] 92201 Casts NONE Normal [facility] Comment on above: Performed By: #### 2 89837 #### [facility],[address] [place] [address] 38208 Clarity (U) very cloudy Normal NORMAL: CLEAR [facility] Comment on above: Performed By: #### 2 76717 #### [facility],[address] [place] [address] 27226 Color (U) jez Normal NORMAL: YELLOW [facility] Comment on above: Performed By: #### 2 30218 #### [facility],[address] [place] [address] 44898 Crystals LM Nom (Urine sed) NONE Normal [facility] Comment on above: Performed By: #### 2 81631 #### [facility],[address] [place] [address] 99497 Epi Cells OCC Normal [facility] Comment on above: Performed By: #### 2 60919 #### [facility],[address] [place] [address] 76977 Glucose Ql (U) NORM Normal NORMAL: NORMAL [facility] Comment on above: Performed By: #### 2 71992 #### [facility],[address] [place] [address] 98044 Hemoglobin Ql (U) 250 Abnormal NORMAL: NEGATIVE [facility] Comment on above: Performed By: #### 2 83805 #### [facility],[address] [place] [address] 07932 Ketone 150 Abnormal NORMAL: NEGATIVE [facility] Comment on above: Performed By: #### 2 08364 #### [facility],[address] [place] [address] 97566 Leukocytes 100 Abnormal NORMAL: NEGATIVE [facility] Comment on above: Performed By: #### 2 58066 #### [facility],[address] [place] [address] 43621 Mucous NONE Normal [facility] Comment on above: Performed By: #### 2 13785 #### [facility],[address] [place] [address] 49153 Nitrite Ql (U) Negative Normal NORMAL: NEGATIVE [facility] Comment on above: Performed By: #### 2 17682 #### [facility],[address] [place] [address] 88756 pH (U) 6 [pH] Normal NORMAL: 5.0-8.0 [facility] Comment on above: Performed By: #### 2 22688 #### [facility],[address] [place] [address] 64923 Protein Ql (U) 30 Abnormal NORMAL: NEGATIVE [facility] Comment on above: Performed By: #### 2 57369 #### [facility],[address] [place] [address] Rbc RARE Normal 0-3/hpf [facility] Comment on above: Performed By: #### 2 34669 #### [facility],[address] [place] [address] Sp [place] 1.015 Normal NORMAL: 1.010-1.030 [facility] Comment on above: Performed By: #### 2 70591 #### [facility],[address] [place] [address] Specimen Type Powers Normal [facility] Comment on above: Performed By: #### 2 34699 #### [facility],[address] [place], [place] [address] Urinalysis dipstick W Reflex Microscopic panel (U) SEE BELOW Normal [facility] Comment on above: Result Comment: MICR OSCOPIC Performed By: #### 2 92381 #### [facility],[address] [place] [address] 26077 Urobilinog NORM Normal NORMAL: NORMAL [facility] Comment on above: Performed By: #### 2 77775 #### [facility],[address] [place] [address] 83027 Wbc 1-5 Normal 0-5/hpf [facility] Comment on above: Performed By: #### 2 64225 #### [facility],[address] [place], [place] [address] Yeast NONE Normal [facility] Comment on above: Performed By: #### 2 33465 #### [facility],[address] [place] [address] CBC + DIFFon 02-11-2021 Baso # 0.10 x10EE3/UL Normal 0.00 - 0.10 [facility] Comment on above: Performed By: #### 2 93557 #### [facility],[address] [place] [address] 87155 Basophils/100 WBC (Bld) 0.6 % Normal 0.0 - 2.0 [facility] Comment on above: Performed By: #### 2 18801 #### [facility],[address] [place] [address] 83230 CBC + DIFF Normal [facility] Comment on above: Result Comment: CBC- COMPLETE BLOOD COUNT Performed By: #### 2 09851 #### [facility],[address] [place] [address] EO # 0.10 x10EE3/UL Normal 0.00 - 0.50 [facility] Comment on above: Performed By: #### 2 62705 #### [facility],[address] [place] [address] 13642 Eosinophils/100 WBC (Bld) 0.6 % Normal 0.0 - 7.0 [facility] Comment on above: Performed By: #### 2 74376 #### [facility],[address] [place], [place] [address] Erythrocyte distribution width (RBC) [Ratio] 14.8 % Normal 12.0 - 15.6 [facility] Comment on above: Performed By: #### 2 66565 #### [facility],[address] [place] [address] Hematocrit (Bld) [Volume fraction] 34.2 % Normal 34.0 - 46.0 [facility] Comment on above: Performed By: #### 2 70403 #### [facility],[address] [place] [address] 09066 Hemoglobin (Bld) [Mass/Vol] 11.5 g/dL Low 12.0 - 16.0 [facility] Comment on above: Performed By: #### 2 86848 #### [facility],[address] [place] [address] 20220 Lymph # 2.70 x10EE3/UL Normal 0.80 - 2.80 [facility] Comment on above: Performed By: #### 2 19555 #### [facility],[address] [place] [address] 36933 Lymphocytes/100 WBC (Bld) 18.8 % Low 20.0 - 45.0 [facility] Comment on above: Performed By: #### 2 41543 #### [facility],[address] [place] [address] 75571 MANUAL DIFF N/A Normal [facility] Comment on above: Performed By: #### 2 41061 #### [facility],[address] [place], [place] [address] MCH (RBC) [Entitic mass] 29 pg Normal 27 - 33 [facility] Comment on above: Performed By: #### 2 50468 #### [facility],[address] [place] [address] 62518 MCHC 34 X10 3 Normal 32 - 36 [facility] Comment on above: Performed By: #### 2 37429 #### [facility],[address] [place] [address] 51017 MCV (RBC) [Entitic vol] 85 fL Normal 80 - 99 [facility] Comment on above: Performed By: #### 2 11870 #### [facility],[address] [place] [address] 09780 Giles # 1.10 x10EE3/UL High 0.20 - 1.00 [facility] Comment on above: Performed By: #### 2 15068 #### [facility],[address] [place] [address] 42234 MONOS % 7.7 % Normal 0.0 - 10.0 [facility] Comment on above: Performed By: #### 2 62070 #### [facility],[address] [place] [address] 32761 Morphology Julio (Bld) [Interp] N/A Normal [facility] Comment on above: Result Comment: {CD] Performed By: #### 2 18059 #### [facility],[address] [place] [address] 92541 Neut # 10.40 x10EE3/UL High 1.50 - 7.[address] [facility] Comment on above: Performed By: #### 2 52887 #### [facility],[address] [place] [address] 97289 Neutrophils/100 WBC (Bld) 72.3 % Normal 46.0 - 76.0 [facility] Comment on above: Performed By: #### 2 13214 #### [facility],[address] [place] [address] 67733 PLATELET 287 x10EE3/UL Normal 150 - 450 [facility] Comment on above: Performed By: #### 2 32400 #### [facility],[address] [place] [address] 08401 Platelet mean volume (Bld) [Entitic vol] 9.3 fL Normal 6.6 - 10.5 [facility] Comment on above: Result Comment: AUTO MATED DIFFERENTIAL Performed By: #### 2 62707 #### [facility],[address] [place] [address] 22507 RBC 4.02 x 10EE6/UL Low 4.10 - 5.[address] [facility] Comment on above: Performed By: #### 2 28819 #### [facility],[address] [place] [address] 69049 WBC 14.3 x 10EE3/UL High 4.5 - 10.8 [facility] Comment on above: Performed By: #### 2 59717 #### [facility],[address] [place] [address] 03761 CULTURE GBS SCREENo n 01-19-2021 CULTURE GBS SCREEN CULTURE GBS SCREEN _VAGINAL GROUP B STREP CULTURE_ M I C R O B I O L O G Y R E P O R T FINAL Antimicrobial Susceptibility and Organism Identification Report Specimen Number : [id number] Requested : 01/19/21 Specimen Source : VAGINAL Collected : 01/19/21 09:01 Ibanez of Isolation : OUTPATIENT Received : 01/19/21 09:01 Requesting Physician : GERMAN Patient/Specimen Tests and Comments Specimen Comments FINAL REPORT: POSITIVE FOR GROUP B BETA STREP Tech : Source : VAGINAL ID # : [id number] FINAL Report Date : / / : Collected : 01/19/21 09:01 01/22/21.0828.BKO. 01/21/21.1022.BKO. 01/22/21.29.BKO.CO MPLETE Normal [facility] Comment on above: Performed By: #### 2 16256 #### [facility],[address] [place] [address] GLUCOSE, GESTATIONAL SCREEN (50G)-135 CUTOFFon 11-25-2020 Glucose [Mass/Vol] 122 mg/dL Normal <135 [facility] Comment on above: Performed By: #### 8 477, 510 #### [facility] [address], [address] [place] [address] Central Supply Clerk: Bossman Curran MD HEMOGLOBINon 11-25-2020 Hemoglobin (Bld) [Mass/Vol] 11.1 g/dL Low 11.7-15.5 [facility] Comment on above: Performed By: #### 8 477, 510 #### [facility] [place] [address] Central Supply Clerk: Bossman Curran MD Coronavirus 0 COVID 19 Source [employer] Normal [facility] Comment on above: Result Comment: Naso pharyngeal Swab Called to and read back by: Dannielle Heaton Corrected on 07/23 AT 0215: Previously reported as [facility] 07/23/20 0159 Dannielle Faustin Corrected on 07/23 AT 0215: Previously reported as U Coronavirus 0 COVID 19 Result [employer] Abnormal Negative for COVID19 (SARS CoV2) by PCR. [facility] Comment on above: Result Comment: Posi tive for This test was developed and its performance characteristics determined by [facility]'s [facility] [place]. This test has been authorized by FDA under an Emergency Use Authorization (EUA). This test has been validated in accordance with the FDA's Guidance Document "Policy for Diagnostics Testing in Laboratories Certified to Perform High Complexity Testing under CLIA prior to Emergency use Authorization for Coronavirus Disease 2019 during the Public Health Emergency" issued on November 10, 2019. COVID19 (SARS This test was developed and its performance characteristics determined by [facility]'s [facility] [place]. This test has been authorized by FDA under an Emergency Use Authorization (EUA). This test has been validated in accordance with the FDA's Guidance Document "Policy for Diagnostics Testing in Laboratories Certified to Perform High Complexity Testing under CLIA prior to Emergency use Authorization for Coronavirus Disease 2019 during the Public Health Emergency" issued on November 10, 2019. CoV2) by This test was developed and its performance characteristics determined by [facility] [place] [facility] [place]. This test has been authorized by FDA under an Emergency Use Authorization (EUA). This test has been validated in accordance with the FDA's Guidance Document "Policy for Diagnostics Testing in Laboratories Certified to Perform High Complexity Testing under CLIA prior to Emergency use Authorization for Coronavirus Disease 2019 during the Public Health Emergency" issued on November 10, 2019. PCR.(*) This test was developed and its performance characteristics determined by [facility] [place]. This test has been authorized by FDA under an Emergency Use Authorization (EUA). This test has been validated in accordance with the FDA's Guidance Document "Policy for Diagnostics Testing in Laboratories Certified to Perform High Complexity Testing under CLIA prior to Emergency use Authorization for Coronavirus Disease 2019 during the Public Health Emergency" issued on November 10, 2019. .GFRon 07-04-2019 GFR >60 Normal [facility] ([place]) Comment on above: Result Comment: GFR Population mean for , Non- Americans Ages 20-29 = 116 mL/min/1.73 sq.m. Ages 30-39 = 107 mL/min/1.73 sq.m. Ages 40-49 = 99 mL/min/1.73 sq.m. Ages 50-59 = 93 mL/min/1.73 sq.m. Ages 60-69 = 85 mL/min/1.73 sq.m. Ages 70+ = 75 mL/min/1.73 sq.m. Chronic Kidney Disease: Less than 60 mL/min/1.73 square meters End Stage Renal Disease: Less than 15 mL/min/1.73 square meters Performed By: #### C MP, GFR, LIPID #### [address] [address] GFR Non- >60 Normal [facility] ([place]) Comment on above: Result Comment: GFR Population mean for , Non- Americans Ages 20-29 = 116 mL/min/1.73 sq.m. Ages 30-39 = 107 mL/min/1.73 sq.m. Ages 40-49 = 99 mL/min/1.73 sq.m. Ages 50-59 = 93 mL/min/1.73 sq.m. Ages 60-69 = 85 mL/min/1.73 sq.m. Ages 70+ = 75 mL/min/1.73 sq.m. Chronic Kidney Disease: Less than 60 mL/min/1.73 square meters End Stage Renal Disease: Less than 15 mL/min/1.73 square meters Performed By: #### C MP, GFR, LIPID #### [address] [address] CMPon 07-04-2019 Albumin/Globulin [Mass ratio] 1.0 {ratio} Normal 0.9-1.6 [facility] ([place]) Comment on above: Performed By: #### C MP, GFR, LIPID #### [address] [address] ALP [Catalytic activity/Vol] 61 U/L Normal 38-126 [facility] ([place]) Comment on above: Performed By: #### C MP, GFR, LIPID #### [address] [address] ALT [Catalytic activity/Vol] 23 U/L Normal 10-49 [facility] ([place]) Comment on above: Performed By: #### C MP, GFR, LIPID #### [address] [address] Bili Total 0.3 mg/dL Normal 0.2-1.2 [facility] ([place]) Comment on above: Performed By: #### C MP, GFR, LIPID #### [address] [address] Creatinine [Mass/Vol] 0.80 mg/dL Normal 0.50-1.20 [facility] ([place]) Comment on above: Performed By: #### C MP, GFR, LIPID #### [address] [address] Globulin (S) [Mass/Vol] 3.8 G/dL Normal 1.5-3.8 [facility] ([place]) Comment on above: Performed By: #### C MP, GFR, LIPID #### [address] [address] Protein [Mass/Vol] 7.5 G/dL Normal 6.0-8.5 [facility] ([place]) Comment on above: Performed By: #### C MP, GFR, LIPID #### [address] [address] Urea nitrogen/Creatinine [Mass ratio] 11.2 ratio Normal 10.0-22.0 [facility] ([place]) Comment on above: Performed By: #### C MP, GFR, LIPID #### [address] [address] Albumin [Mass/Vol] 3.7 G/dL Normal 3.2-4.8 [facility] ([place]) Comment on above: Performed By: #### C MP, GFR, LIPID #### [address] [address] AST [Catalytic activity/Vol] 17 U/L Normal 8-34 [facility] ([place]) Comment on above: Performed By: #### C MP, GFR, LIPID #### [address] [address] Calcium [Mass/Vol] 9.5 mg/dL Normal 8.4-10.1 [facility] ([place]) Comment on above: Performed By: #### C MP, GFR, LIPID #### [address] [address] Chloride [Moles/Vol] 107 mmol/L Normal 98-110 [facility] ([place]) Comment on above: Performed By: #### C MP, GFR, LIPID #### [address] [address] CO2 [Moles/Vol] 25 mmol/L Normal 22-32 [facility] ([place]) Comment on above: Performed By: #### C MP, GFR, LIPID #### [address] [address] Electrolyte Balance 8.0 mEq/L Normal 4.0-15.0 [facility] ([place]) Comment on above: Performed By: #### C MP, GFR, LIPID #### [address] [address] Glucose [Mass/Vol] 76 mg/dL Normal 70-110 [facility] ([place]) Comment on above: Performed By: #### C MP, GFR, LIPID #### [address] [address] Potassium [Moles/Vol] 4.2 mmol/L Normal 3.5-5.0 [facility] ([place]) Comment on above: Performed By: #### C MP, GFR, LIPID #### [address] [address] Sodium [Moles/Vol] 140 mmol/L Normal 136-145 [facility] ([place]) Comment on above: Performed By: #### C MP, GFR, LIPID #### [address] [address] Urea nitrogen [Mass/Vol] 9.0 mg/dL Normal 8.0-22.0 [facility] ([place]) Comment on above: Performed By: #### C MP, GFR, LIPID #### [address] [address] LIPIDon 07-04-2019 Cholesterol in HDL [Mass/Vol] 56 mg/dL Normal 40-59 [facility] ([place]) Comment on above: Result Comment: HDL Reference Interval: Less than 40 Low - high risk 60 or above Optimal/lowers risk Performed By: #### C MP, GFR, LIPID #### [address] [address] Cholesterol in LDL [Mass/Vol] 116 mg/dL Normal 0-129 [facility] ([place]) Comment on above: Result Comment: LDL is a calculated result and requires a 12-hr fast. LDL Reference Interval: Less than 100 Optimal 100-129 Near or above optimal 130-159 Borderline high risk 160-189 High risk 190 and above Very high risk Performed By: #### C MP, GFR, LIPID #### [facility] [address] [place] [address] Triglyceride [Mass/Vol] 150 mg/dL High 3-149 [facility] ([place]) Comment on above: Result Comment: Trig lyceride Reference Interval: Less than 150 Normal 150-199 Borderline high risk 200-499 High risk 500 or higher Very high risk Performed By: #### C MP, GFR, LIPID #### [facility] [address] [place] [address] 36662 Cholesterol [Mass/Vol] 202 mg/dL High 50-199 [facility] ([place]) Comment on above: Result Comment: Chol esterol Reference Interval: Less than 200 Desirable 200-239 Borderline high risk 240 and above High risk Performed By: #### C MP, GFR, LIPID #### [facility] [address] [place] [address]137 Vital Signs Date Time Vital Sign Value Performing Clinician Nnamdi barrow 12-28-2023 10:49-0400 Body height 175.26 cm PA-C [employer] Work Phone: [facility] 12-28-2023 10:42-0400 Body mass index (BMI) [Ratio] 34.5 kg/m2 PA-C [employer] Work Phone: [facility] 12-28-2023 10:42-0400 Body weight 106.14 kg PA-C [employer] Work Phone: [facility] 12-28-2023 10:42-0400 Diastolic blood pressure 76 mm[Hg] PA-C [employer] Work Phone: [facility] 12-28-2023 10:42-0400 Systolic blood pressure 120 mm[Hg] PA-C [employer] Work Phone: [facility] 11-20-2023 08:49-0400 Body temperature 97.2 [degF] PA-C Angela [employer] Work Phone: [facility] 11-20-2023 08:49-0400 Diastolic blood pressure 75 mm[Hg] PA-C Angela Bono PA Work Phone: [facility] 11-20-2023 08:49-0400 Heart rate 69 /min PA-C Angela Bono PA Work Phone: [facility] 11-20-2023 08:49-0400 Respiratory rate 16 /min PA-C Angela Bono PA Work Phone: [facility] 11-20-2023 08:49-0400 SaO2% (BldA) [Mass fraction] 99 % PA-C Angela [employer] Work Phone: [facility] 11-20-2023 08:49-0400 Systolic blood pressure 128 mm[Hg] PA-C Angela Bono PA Work Phone: [facility] 11-18-2023 12:56-0500 Body height 175.26 cm PA-C Angela Bono PA Work Phone: [facility] 11-18-2023 12:56-0500 Body mass index (BMI) [Ratio] 37 kg/m2 PA-C Angela Bono PA Work Phone: [facility] 11-18-2023 12:56-0500 Body weight 113.85 kg PA-C Angela Bono PA Work Phone: [facility] 11-17-2023 16:25-0500 Body weight 115.21 kg PA-C Angela Bono PA Work Phone: [facility] 11-17-2023 15:56-0500 Body mass index (BMI) [Ratio] 52.2 kg/m2 PA-C Angela Bono PA Work Phone: [facility] 11-17-2023 15:56-0500 Diastolic blood pressure 84 mm[Hg] PA-C Angela Bono PA Work Phone: [facility] 11-17-2023 15:56-0500 Systolic blood pressure 128 mm[Hg] PA-C Angela Bono PA Work Phone: [facility] 11-10-2023 16:02-0500 Body mass index (BMI) [Ratio] 37.5 kg/m2 PA-C Angela Bono PA Work Phone: [facility] 11-10-2023 16:02-0500 Body weight 115.21 kg PA-C Angela Bono PA Work Phone: [facility] 11-10-2023 16:02-0500 Diastolic blood pressure 83 mm[Hg] PA-C Angela Bono PA Work Phone: [facility] 11-10-2023 16:02-0500 Systolic blood pressure 130 mm[Hg] PA-C Angela Bono PA Work Phone: [facility] 11-02-2023 15:10-0500 Body mass index (BMI) [Ratio] 37 kg/m2 PA-C Angela Bono PA Work Phone: [facility] 11-02-2023 15:10-0500 Body weight 113.9 kg PA-C Angela Bono PA Work Phone: [facility] 11-02-2023 15:10-0500 Diastolic blood pressure 82 mm[Hg] PA-C Angela Bono PA Work Phone: [facility] 11-02-2023 15:10-0500 Systolic blood pressure 120 mm[Hg] PA-C Angela Bono PA Work Phone: [facility] 10-25-2023 14:26-0500 Body height 175.26 cm PA-C Angela Bono PA Work Phone: [facility] 10-25-2023 14:24-0500 Body mass index (BMI) [Ratio] 36.9 kg/m2 PA-C Angela Bono PA Work Phone: [facility] 10-25-2023 14:24-0500 Body weight 113.51 kg PA-C Angela Bono PA Work Phone: [facility] 10-25-2023 14:24-0500 Diastolic blood pressure 86 mm[Hg] PA-C Angela Bono PA Work Phone: [facility] 10-25-2023 14:24-0500 Systolic blood pressure 136 mm[Hg] PA-C Angela Bono PA Work Phone: [facility] 10-18-2023 09:01-0500 Body mass index (BMI) [Ratio] 36.6 kg/m2 PA-C Angela Bono PA Work Phone: [facility] 10-18-2023 09:01-0500 Body weight 112.54 kg PA-C Angela Bono PA Work Phone: [facility] 10-18-2023 09:01-0500 Diastolic blood pressure 80 mm[Hg] PA-C Angela Bono PA Work Phone: [facility] 10-18-2023 09:01-0500 Systolic blood pressure 121 mm[Hg] PA-C Angela Bono PA Work Phone: [facility] 10-06-2023 14:55-0500 Body mass index (BMI) [Ratio] 36.8 kg/m2 PA-C Angela Bono PA Work Phone: [facility] 10-06-2023 14:55-0500 Body weight 113.11 kg PA-C Angela Bono PA Work Phone: [facility] 10-06-2023 14:55-0500 Diastolic blood pressure 74 mm[Hg] PA-C Angela Bono PA Work Phone: [facility] 10-06-2023 14:55-0500 Systolic blood pressure 116 mm[Hg] PA-C Angela Bono PA Work Phone: [facility] 09-21-2023 15:07-0500 Body mass index (BMI) [Ratio] 36.3 kg/m2 PA-C Angela Bono PA Work Phone: [facility] 09-21-2023 15:07-0500 Body weight 111.75 kg PA-C Angela Bono PA Work Phone: [facility] 09-21-2023 15:07-0500 Diastolic blood pressure 79 mm[Hg] PA-C Angela Bono PA Work Phone: [facility] 09-21-2023 15:07-0500 Systolic blood pressure 128 mm[Hg] PA-C Angela Bono PA Work Phone: [facility] 09-08-2023 14:30-0500 Body height 175.26 cm PA-C Angela Bono PA Work Phone: [facility] 09-08-2023 14:29-0500 Body mass index (BMI) [Ratio] 36.1 kg/m2 PA-C Angela Bono PA Work Phone: [facility] 09-08-2023 14:29-0500 Body weight 111.13 kg PA-C Angela Bono PA Work Phone: [facility] 09-08-2023 14:29-0500 Diastolic blood pressure 81 mm[Hg] PA-C Angela Bono PA Work Phone: [facility] 09-08-2023 14:29-0500 Systolic blood pressure 125 mm[Hg] PA-C Angela Bono PA Work Phone: [facility] 08-24-2023 13:37-0500 Body mass index (BMI) [Ratio] 35.6 kg/m2 PA-C Angela Bono PA Work Phone: [facility] 08-24-2023 13:37-0500 Body weight 109.37 kg PA-C Angela Bono PA Work Phone: [facility] 08-24-2023 13:37-0500 Diastolic blood pressure 75 mm[Hg] PA-C Angela Bono PA Work Phone: [facility] 08-24-2023 13:37-0500 Systolic blood pressure 133 mm[Hg] PA-C Angela Bono PA Work Phone: [facility] 08-09-2023 15:45-0500 Body height 175.26 cm PA-C Angela Bono PA Work Phone: [facility] 08-09-2023 15:43-0500 Body mass index (BMI) [Ratio] 35.4 kg/m2 PA-C Angela Bono PA Work Phone: [facility] 08-09-2023 15:43-0500 Body weight 108.86 kg PA-C Angela Bono PA Work Phone: [facility] 08-09-2023 15:43-0500 Diastolic blood pressure 78 mm[Hg] PA-C Angela Bono PA Work Phone: [facility] 08-09-2023 15:43-0500 Systolic blood pressure 112 mm[Hg] PA-C Angela Bono PA Work Phone: [facility] 07-12-2023 15:50-0400 Body mass index (BMI) [Ratio] 35.4 kg/m2 PA-C Angela Bono PA Work Phone: [facility] 07-12-2023 15:50-0400 Body weight 108.86 kg PA-C Angela Bono PA Work Phone: [facility] 07-12-2023 15:50-0400 Diastolic blood pressure 82 mm[Hg] PA-C Angela Bono PA Work Phone: [facility] 07-12-2023 15:50-0400 Systolic blood pressure 129 mm[Hg] PA-C Angela Bono PA Work Phone: [facility] 06-15-2023 15:50-0400 Body mass index (BMI) [Ratio] 34.4 kg/m2 PA-C Angela Bono PA Work Phone: [facility] 06-15-2023 15:50-0400 Body weight 105.85 kg PA-C Angela Bono PA Work Phone: [facility] 06-15-2023 15:50-0400 Diastolic blood pressure 78 mm[Hg] PA-C Angela Bono PA Work Phone: [facility] 06-15-2023 15:50-0400 Systolic blood pressure 120 mm[Hg] PA-C Angela Bono PA Work Phone: [facility] 05-18-2023 15:42-0400 Body mass index (BMI) [Ratio] 34.4 kg/m2 PA-C Angela Bono PA Work Phone: [facility] 05-18-2023 15:42-0400 Body weight 105.74 kg PA-C Angela Bono PA Work Phone: [facility] 05-18-2023 15:42-0400 Diastolic blood pressure 77 mm[Hg] PA-C Angela Bono PA Work Phone: [facility] 05-18-2023 15:42-0400 Systolic blood pressure 120 mm[Hg] PA-C Angela Bono PA Work Phone: [facility] 04-18-2023 11:19-0400 Body height 175.26 cm [facility] Judy Villa Work Phone: [facility] 04-18-2023 11:19-0400 Body mass index (BMI) [Ratio] 34.8 kg/m2 [facility] Judy Villa Work Phone: [facility] 04-18-2023 11:19-0400 Body weight 107.04 kg CN Judy Villa Work Phone: [facility] 04-18-2023 11:19-0400 Diastolic blood pressure 78 mm[Hg] CNM Judy Villa Work Phone: [facility] 04-18-2023 11:19-0400 Systolic blood pressure 120 mm[Hg] CNM Judy Villa Work Phone: [facility] Encounters Encounter Date Encounter Type Care Provider Facility Start: 12-28-2023 End: 12-28-2023 Patient encounter procedure PA-C Angela Bono PA Work Phone: [facility] Work Phone: Start: 12-28-2023 End: 12-28-2023 ambulatory PA-C Angela Bono PA Work Phone: [facility] Work Phone: Start: 12-28-2023 End: 12-28-2023 Patient encounter procedure PA-C Angela Bono PA Work Phone: [facility] Work Phone: Start: 11-21-2023 ambulatory Gail Hopsoni lity:[facility] Start: 11-20-2023 Non-patient / Non-visit PA-C Angela Bono PA Work Phone: [facility] Start: 11-18-2023 Non-patient / Non-visit PA-C Angela Bono PA Work Phone: [facility] Start: 11-18-2023 End: 11-18-2023 ambulatory Angela Bono PA Facility:[facility] [place] [facility] Start: 11-18-2023 End: 11-20-2023 Evaluation and management of inpatient Gail Jackson Facility:[facility] Start: 11-18-2023 End: 11-18-2023 Patient encounter procedure PA-C Angela Bono PA Work Phone: [facility] Work Phone: Start: 11-18-2023 End: 11-20-2023 Evaluation and management of inpatient PA-C Angela Bono PA Work Phone: [facility] Work Phone: Start: 11-17-2023 End: 11-17-2023 ambulatory Gail Jackson Facility:[facility] Start: 11-17-2023 End: 11-17-2023 Patient encounter procedure PA-C Angela Bono PA Work Phone: [facility] Work Phone: Start: 11-10-2023 End: 11-10-2023 ambulatory Gail Jackson Facility:[facility] [place] Start: 11-10-2023 End: 11-10-2023 Patient encounter procedure PA-C Angela Bono PA Work Phone: [facility] Work Phone: Start: 11-02-2023 End: 11-02-2023 ambulatory Indigo Reyes Facility:[facility] [place] Start: 11-02-2023 End: 11-02-2023 Patient encounter procedure PA-C Angela Bono PA Work Phone: [facility] Work Phone: Start: 10-25-2023 End: 10-25-2023 Patient encounter procedure PA-C Angela Bono PA Work Phone: [facility] Work Phone: Start: 10-25-2023 End: 10-25-2023 Patient encounter procedure PA-C Angela Bono PA Work Phone: [facility] Work Phone: Start: 10-25-2023 End: 10-25-2023 ambulatory PA-C Angela Bono PA Work Phone: [facility] Work Phone: Start: 10-18-2023 End: 10-18-2023 ambulatory Angela Salty PA Facility:[facility] Start: 10-18-2023 End: 10-18-2023 Patient encounter procedure PA-C Angela Bono PA Work Phone: [facility] Work Phone: Start: 10-06-2023 End: 10-06-2023 ambulatory Angela Bono PA Facility:[facility] Start: 10-06-2023 End: 10-06-2023 Patient encounter procedure PA-C Angela Salty PA Work Phone: [facility] Work Phone: Start: 09-21-2023 End: 09-21-2023 ambulatory Judy Villa Facility:[facility] Start: 09-21-2023 End: 09-21-2023 Patient encounter procedure PA-C Angela Salty PA Work Phone: [facility] Work Phone: Start: 09-08-2023 End: 09-08-2023 Patient encounter procedure PA-C Angela Pond PA Work Phone: [facility] Work Phone: Start: 09-08-2023 End: 09-08-2023 Patient encounter procedure PA-C Angela Pond PA Work Phone: [facility] Work Phone: Start: 09-08-2023 End: 09-08-2023 ambulatory PA-C Angela Bono PA Work Phone: [facility] Work Phone: Start: 08-24-2023 End: 08-24-2023 ambulatory Indigo Reyes Facility:[facility] Start: 08-24-2023 End: 08-24-2023 Patient encounter procedure PA-C Angela Bono PA Work Phone: [facility] Work Phone: Start: 08-09-2023 End: 08-09-2023 ambulatory Gail Jackson Facility:[facility] Start: 08-09-2023 End: 08-09-2023 Patient encounter procedure PA-C Angela Bono PA Work Phone: [facility] Work Phone: Start: 08-09-2023 End: 08-09-2023 ambulatory PA-C Angela Bono PA Work Phone: [facility] Work Phone: Start: 07-12-2023 End: 07-12-2023 ambulatory Indigo Reyes Facility:[facility] Start: 07-12-2023 End: 07-12-2023 Patient encounter procedure PA-C Angela Bono PA Work Phone: [facility] Work Phone: Start: 06-21-2023 End: 06-21-2023 ambulatory [facility] Start: 06-15-2023 End: 06-15-2023 ambulatory Bella Jessica Facility:[facility] Start: 06-15-2023 End: 06-15-2023 Patient encounter procedure PA-C Angela Bono PA Work Phone: [facility] Work Phone: Start: 05-18-2023 End: 05-18-2023 ambulatory Indigo Reyes Facility:[facility] Start: 05-18-2023 End: 05-18-2023 Patient encounter procedure PA-C Angela Bono PA Work Phone: [facility] Work Phone: Start: 05-04-2023 End: 05-04-2023 ambulatory Judy Villa Facility:[facility] Start: 05-04-2023 End: 05-04-2023 Patient encounter procedure PA-C Angela Bono PA Work Phone: [facility] Start: 04-18-2023 End: 04-18-2023 Patient encounter procedure CNDillon Villa Work Phone: [facility] Work Phone: Start: 04-18-2023 End: [facility] Start: 04-18-2023 End: 04-18-2023 ambulatory Judy Villa Facility:[facility] Start: 04-18-2023 End: 04-18-2023 Patient encounter procedure CNDillon Judy Allen Work Phone: [facility] Work Phone: Start: 02-11-2021 End: 02-13-2021 Evaluation and management of inpatient [facility] Start: 01-19-2021 End: 01-19-2021 ambulatory [facility] Procedures Date Procedure Procedure Detail Performing Clinician Start: 10-25-2023 Group B Streptococcu s Culture PA-Marie BRICEÑO Work Phone: Start: 04-18-2023 Urine culture CNDillon Villa Work Phone: Start: 02-12-2021 Delivery of Products of Conception, External Approach PATRICIO ROJAS Start: 02-12-2021 Division of Female Perineum, External Approach PATRICIO ROJAS Start: 02-12-2021 Urinalysis PATRICIO CHESTER Comment on above: Result Comment: URIN ALYSIS Performed By: #### [id number] #### [facility],[address] [place] [address] Plan of Treatment Date Care Activity Detail Author Start: 11-20-2023 Patient discharge [facility] Start: 11-18-2023 Administration of medication [facility] Start: 11-18-2023 Application of ice collar, cap or bag [facility] Start: 11-18-2023 Catheterization of vein [facility] Start: 11-18-2023 Introduction of urinary catheter [facility] Start: 11-18-2023 Measuring intake and output [facility] Start: 11-18-2023 Notification of physician [facility] Start: 11-18-2023 Procedure discontinued [facility] Start: 11-18-2023 Provision of activity privileges [facility] Start: 11-18-2023 Vital signs measurements [facility] Start: 11-18-2023 End: 11-18-2023 [facility] Start: 11-18-2023 Documentation procedure [facility] Start: 11-18-2023 Admission procedure [facility] Start: 11-18-2023 Verification routine [facility] CBC W Auto Different ial panel - Blood [facility] Glucose [Mass/volume ] in Serum or Plasma --1 hour post 50 g glucose PO [facility] Hepatitis B surface antigen measurement [facility] Hepatitis C antibody measurement [facility] HIV 1+2 Ab+HIV1 p24 Ag [Presence] in Serum or Plasma by Immunoassay [facility] Patient Education After a Vagina l Breastfeed Common Questions [facility] Work Phone: Patient referral [facility] Work Phone: Rubella IgG measurement [facility] Treponema sp Ab [Pre sence] in Serum [facility] Ultrasound scan for growth [facility] P[place] Date Payer Category Payer Self-pay 2023 Unknown [id number] 1995 Unknown [id number] 2.16.84 [id number] 1995 Unknown [id number] 2.16.84 [id number] 1995 Unknown [id number] 2.16. [id number] Unknown [id number] Unknown [id number] 2.16.8 40.1.506262.3.579.2.462 Unknown [id number] 2.16.8 40.1.260790.3.579.2.462 Unknown [id number] 2.16.8 40.1.475610.3.579.2.462 Unknown [id number] 2.16.8 40.1.289719.3.579.2.462 Unknown [id number] 2.16.8 40.1.949841.3.579.2.462 Unknown [id number] 2.16.8 40.1.122085.3.579.2.462 Unknown [id number] 2.16.8 40.1.376626.3.579.2.462 Unknown [id number] 2.16.8 40.1.294675.3.579.2.462 Unknown [id number] 2.16.8 40.1.366614.3.579.2.462 Unknown [id number] 2.16.8 40.1.118498.3.579.2.462 Unknown [id number] 2.16.8 40.1.704475.3.579.2.462 Unknown [id number] 2.16.8 40.1.926525.3.579.2.462 Unknown [id number] 2.16.8 40.1.952964.3.579.2.462 Unknown [id number] 2.16.8 40.1.904706.3.579.2.462 Unknown [id number] 2.16.8 40.1.284712.3.579.2.462 Unknown [id number] 2.16.8 40.1.361492.3.579.2.462 Unknown [id number] 2.16.8 40.1.850854.3.579.2.462 Unknown [id number] 2.16.8 40.1.495681.3.579.2.462 Unknown [id number] 2.16.8 40.1.642986.3.579.2.462 Unknown [id number] 2.16.8 40.1.881177.3.579.2.462 Unknown [id number] 2.16.8 40.1.039712.3.579.2.462 Unknown [id number] 2.16.8 40.1.833401.3.579.2.462 Unknown [id number] 2.16.8 40.1.530948.3.579.2.462 Unknown [id number] 2.16.8 40.1.026534.3.579.2.462 Unknown [id number] 2.16.8 40.1.429823.3.579.2.462 Unknown [id number] 2.16.8 40.1.711200.3.579.2.462 Social History Date Type Detail Facility Start: 04-18-2023 End: 12-28-2023 Tobacco smoking status NHIS Unknown if ever smoked [facility] Start: 1995 Sex Assigned At Female [facility] Goals Date Patient Goal Desired Activity /State Clinical Notes 11-18-2023 to 12-28-2023 Note Date & Type Note Facility 12-28-2023 Note [facility] Pap Smear Specimen Adequacy December 28, 2023 1:28pm Comment . Satisfactory for evaluation. Endocervical and/or squamous metaplasticcells (endocervical component) are present. Comment on above: Satisfactory for alexis luation. Endocervical and/or squamous metaplasticcells (endocervical component) are present. 11-18-2023 Discharge summary Note Date/Time November 18, 2023 8:58 pm [facility] Medical Records Department [address] [place] [address] Instructions for Home/Discharge Instructions 11/18/232057 MR#: [id number] Acct: [id number] Name: MITUL MCDANIEL Rep #:[id number] : 1995 28 From: Gail ramos MD PCP: Angela Pond PA-C Status:ADM I N Discharge Instructions Diet Discharge Diet: No restrictions Activity Discharge Activity: Return to Normal Activity, May Not Drive (while taking narcotic pain medications.) and May Shower May resume sexual activity in: 4-6 weeks Dressing / Incision Call your doctor if your incision/area has: Continuous Slow Oozing, Sudden Increased Bleeding, Increased Pain/ Swelling, Increased Redness and Foul Smelling Discharge Follow Up Care Please Follow Up With: Gail Jackson MD When: Call [phone] to make an appointment with your doctor in 6 weeks. If you had elevated blood pressure or 4th degree laceration, you will need to be seen in 2 weeks. Test Results: Test results from this visit will be discussed in further detail at your follow-up appointment, if applicable. Discharge Plan Admission Admit Date/Time: 11/18/23 12:44 Attending Provider: Gail Jackson Primary Care Provider: Angela Pond Discharge Orders/Prescriptions Prescriptions: No Action DHA 200 mg capsule PO Referrals / Follow Up: Angela Pond PA-C [Primary Care Provider] - 11/18/232057<Electronically signed by Gail Jackson MD>Gail Jackson MD CC: TARIQ Pond ~ Signed [facility] Work Phone: 1(175) 144-492903-08-2024 History and physical note Author Gail Jackson [facility] November 18, 2023 8:50pm Note Date/Time November 18, 2023 8:50 pm [facility] Medical Records Department [address] [place] [id number] H&P Exam - SYSTEMS INTEGRATION MANAGER 11/18/232047 MR#: [id number] Acct: [id number] Name: MITUL MCDANIEL Rep #:[id number] : 1995 28 From: Gail ramos MD PCP: Angela Pond PA-C Status:ADM I N Location: KO887-2 HPI - General General Date of Admission: 11/18/23 HPI Narrative MITUL MCDANIEL, is a 28 F who presents IAL with regular ctx, 4-5 cm dilated no vb lof Maternal Data Information SIVAKUMAR Calculator Estimated Delivery Date Method Current WG Current Estimate 11/17/23 LMP (Certain) 40w 1d PFSH PFSH Home Medications docosahexaenoic acid 200 mg capsule ( DHA) mg PO 04/18/23 [History Last Taken 11/17/23 22:00] Allergy/AdvReac Type Severity Reaction Status Date / Time No Known Allergies Allergy Verified 11/18/23 12:54 Family History Father Hodgkins lymphoma Social History current occupational status: employed 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 Date Name GA/Weeks Outcome Route Bth Weight Gen Labor Lgth Anesthesia Del Locatn Provider FOB 02/12/21 [place] 39 live - full term vacuum 7lbs 3oz Florina Tao Delivery Date: 02/12/21 Last Updated by: Alison Reynolds No issues during or delivery other than vacuum. Visit Details Expected Delivery Route/Plan Labor Preferences- CB/BF classes: [] labor support person: [] labor intervention preferences: epidural pain management options preferred: [] cut cord/dad catch: [] : [] PP control planned: [] discussed possible routes of delivery and associated risks: [] special requests: [] Plans Covid status: [] Flu vaccine: declined Tdap vaccine: declined Rhogam: na LARC form signed: [] Problem list reviewed and updated with the most current plan of care details and appropriate orders placed. Relevant counseling for the gestational age provided. Continue routine care and follow up unless otherwise noted in visit notes/problem list details OB Flowsheet Initial Weight: 236 lb Date -?-?-?-?-?-?-?-?-?-?-?-?- EGA Weight BP Urine Prot -?-?-?-?-?-?-?-?-?-?-?-?- Glucose FHR FuHt Pres Dilation -?-?-?-?-?-?-?-?-?-?-?-?- Effaced St Visit Note 04/18/23 -?-?-?-?-?-?-?-?-?-?-?-?- 9w 4d 236 lb (+0 oz) 120/78 -?--?-?-?-?-?-?-?-?-?-?-?- 169 -?-?-?-?-?-?-?-?-?-?-?-?- LC- 2.7CRL con w ith LMP. SIVAKUMAR 11/17/2023.reviewed with SM. BMI >30 early glucose. considering NIPT. 05/18/23 -?-?-?-?-?-?-?-?-?-?-?-?- 13w 6d 233 lb 2 oz (-2 lb 14 oz) 120/77 Negative -?-?-?-?-?-?-?-?-?-?-?-?- Negative 144 -?-?-?-?-?-?-?-?-?-?-?-?- JV- decided agai nst nipt JV- decided against nipt. na usea is improving but not gone. they are going [place] 06/15/23 -?-?-?-?-?-?-?-?-?-?-?-?- 17w 6d 233 lb 6 oz (-2 lb 10 oz) 120/78 Negative -?-?-?-?-?-?-?-?-?-?-?-?- Negative 146 -?-?-?-?-?-?-?-?-?-?-?-?- MH-No VB. Declin es NIPT and flu vaccine. Still using zofran for nausea. 07/12/23 -?-?-?-?-?-?-?-?-?-?-?-?- 21w 5d 240 lb (+4 lb) 129/82 Negative -?-?-?-?-?-?-?-?-?-?-?-?- Negative 141 -?-?-?-?-?-?-?-?-?-?-?-?- JV- nausea still present and is taking zofran frequently. This is causing constipation which is now making her hemorrhoids flare up. will switch to reglan an recommend colace + miralax. anatomy scan was not complete the first time but had her follow up scan yesterday. results are pending but states they were complete this time. 08/09/23 -?-?-?-?-?-?-?-?-?-?-?-?- 25w 5d 240 lb (+4 lb) 112/78 Negative -?-?-?-?-?-?-?-?-?-?-?--?- Negative 150 26 -?-?-?-?-?-?-?-?-?-?-?-?- SM- `no vb lof g ood fm no regular ctx nl glucola reviewed low BS 08/24/23 -?-?-?-?-?-?-?-?-?-?-?-?- 27w 6d 241 lb 2 oz (+5 lb 2 oz) 133/75 Negative -?-?-?-?-?-?-?-?-?-?-?-?- Negative 154 28 -?-?-?-?-?-?-?-?-?-?-?-?- JV- no lof, vagi nal bleeding, or dec fm. normal (low) glucola. tdap next visit. 09/08/23 -?-?-?-?-?-?-?-?-?-?-?-?- 30w 0d 245 lb (+9 lb) 125/81 1+ -?-?-?-?-?-?-?-?-?-?-?-?- Negative 150 30 -?-?-?-?-?-?-?-?-?-?-?-?- SM- no vb lof go od fm no reuglar ctx 09/21/23 -?-?-?-?-?-?-?-?-?-?-?-?- 31w 6d 246 lb 6 oz (+10 lb 6 oz) 128/79 -?-?-?-?-?-?-?-?-?-?-?-?- 130 32 -?-?-?-?-?-?-?-?-?-?-?-?- LC- audible dece l to 70 with quick resolution to 130, decel to 100s heard. NST obtained, reactive with accel no further decels. no vb/ctx/lof. good fm. larc signed. 10/06/23 -?-?-?-?-?-?-?-?-?-?-?-?- 34w 0d 249 lb 6 oz (+13 lb 6 oz) 116/74 Negative -?-?-?-?-?-?-?-?-?-?-?-?- Negative 130 34 -?-?-?-?-?-?-?-?-?-?-?-?- KW-no vb/crampin g. good fm. no concerns today. 10/18/23 -?-?-?-?-?-?-?-?-?-?-?-?- 35w 5d 248 lb 2 oz (+12 lb 2 oz) 121/80 Negative -?-?-?-?-?-?-?-?-?-?-?-?- Negative 140 35 -?-?-?-?-?-?-?-?-?-?-?-?- KW- no vb/crampi ng/lof. good fm. GBS next visit. 10/25/23 -?-?-?-?-?-?-?-?-?-?--?-?- 36w 5d 250 lb 4 oz (+14 lb 4 oz) 136/86 Negative -?-?-?-?-?-?-?-?-?-?-?-?- Negative 155 37 Cephalic 2 -?-?-?-?-?-?-?-?--?-?-?-?- 60 -2 KW-no vb/l of/ctx. good fm. gbs today. discussed EPO use. 11/02/23 -?-?-?-?-?-?-?-?-?-?-?-?- 37w 6d 251 lb 2 oz (+15 lb 2 oz) 120/82 Negative -?-?-?-?-?-?-?-?-?-?-?-?- Negative 129 Cephalic 1.5 -?-?-?-?-?-?-?-?-?-?-?-?- 70 -1 JV- no lof , vaginal bleeding, or dec fm. 11/10/23 -?-?-?-?-?-?-?-?-?-?-?-?- 39w 0d 254 lb (+18 lb) 130/83 Negative -?-?-?-?-?-?-?-?-?-?-?-?- Negative 120 Cephalic 1.5 -?-?-?-?-?-?-?-?-?-?-?-?- 60 -2 SM- no vb lof good fm no regular ctx 11/17/23 -?-?-?-?-?-?-?-?-?-?-?-?- 40w 0d 354 lb (+118 lb) 254 lb (+18 lb) 128/84 Negative -?-?-?-?-?-?-?-?-?-?-?-?- Negative 120 37 Cephalic 2 -?-?-?-?-?-?-?-?-?-?-?-?- 70 SM- no v b lof good fm no regular ctx fh low silvio checked- NST FHR Rate Baby A Baseline: 140 Variability:: Moderate Accelerations:: 15 x 15 Decelerations:: None NST Reactive:: Yes FHR Category:: Category I Uterine Activity:: q3-5 ROS Constitutional Constitutional: Reports systems reviewed and no addt'l complaints, except as documented ENT HEENT: Reports systems reviewed and no addt'l complaints, except as documented Cardiovascular Cardiovascular: Reports systems reviewed and no addt'l complaints, except as documented Respiratory/Chest Respiratory/Chest: Reports systems reviewed and no addt'l complaints, except as documented Gastrointestinal Gastrointestinal: Reports systems reviewed and no addt'l complaints, except as documented and nausea; Denies abdominal pain Genitourinary Genitourinary: Reports systems reviewed and no addt'l complaints, except as documented, contractions Details: present and frequency (regular ) and movement Details: present Musculoskeletal Musculoskeletal: Reports systems reviewed and no addt'l complaints, except as documented Integumentary Integumentary: Reports as per HPI Neurologic Neurologic: Reports systems reviewed and no addt'l complaints, except as documented Endocrine Endocrinology: Reports systems reviewed and no addt'l complaints, except as documented Vital Signs Vital Signs Vital Signs: 11/18/23 12:50 11/18/23 12:50 11/18/23 12:55 Temperature Temperature Source Pulse Rate 82 81 Respiratory Rate Blood Pressure BP Systolic BP Diastolic Pulse Ox 100 11/18/23 12:55 11/18/23 14:01 11/18/23 14:01 Temperature Temperature Source Pulse Rate 73 Respiratory Rate Blood Pressure 146/67 H BP Systolic 146 BP Diastolic 67 Pulse Ox 100 11/18/23 14:01 11/18/23 14:11 11/18/23 14:14 Temperature Temperature Source Pulse Rate 76 Respiratory Rate Blood Pressure 119/70 BP Systolic 119 BP Diastolic 70 Pulse Ox 100 11/18/23 14:14 11/18/23 14:17 11/18/23 14:17 Temperature Temperature Source Pulse Rate 74 Respiratory Rate Blood Pressure BP Systolic BP Diastolic Pulse Ox 100 92 11/18/23 14:19 11/18/23 14:19 11/18/23 14:22 Temperature Temperature Source Pulse Rate 73 Respiratory Rate Blood Pressure 100/48 L BP Systolic 100 BP Diastolic 48 Pulse Ox 100 11/18/23 14:22 11/18/23 14:24 11/18/23 14:24 Temperature Temperature Source Pulse Rate 87 76 Respiratory Rate Blood Pressure BP Systolic BP Diastolic Pulse Ox 100 11/18/23 14:26 11/18/23 14:26 11/18/23 14:29 Temperature Temperature Source Pulse Rate 77 75 Respiratory Rate Blood Pressure 97/51 L BP Systolic 97 BP Diastolic 51 Pulse Ox 11/18/23 14:29 11/18/23 14:33 11/18/23 14:33 Temperature Temperature Source Pulse Rate 71 Respiratory Rate Blood Pressure 98/55 L BP Systolic 98 BP Diastolic 55 Pulse Ox 100 11/18/23 14:34 11/18/23 14:34 11/18/23 14:36 Temperature Temperature Source Pulse Rate 71 Respiratory Rate Blood Pressure 100/53 L BP Systolic 100 BP Diastolic 53 Pulse Ox 100 11/18/23 14:36 11/18/23 14:39 11/18/23 14:39 Temperature Temperature Source Pulse Rate 74 77 Respiratory Rate Blood Pressure BP Systolic BP Diastolic Pulse Ox 100 11/18/23 14:41 11/18/23 14:41 11/18/23 14:44 Temperature Temperature Source Pulse Rate 69 70 Respiratory Rate Blood Pressure 100/53 L BP Systolic 100 BP Diastolic 53 Pulse Ox 11/18/23 14:44 11/18/23 14:49 11/18/23 14:49 Temperature Temperature Source Pulse Rate 74 Respiratory Rate Blood Pressure BP Systolic BP Diastolic Pulse Ox 100 100 11/18/23 14:53 11/18/23 14:53 11/18/23 14:54 Temperature Temperature Source Pulse Rate 69 68 Respiratory Rate Blood Pressure 100/51 L BP Systolic 100 BP Diastolic 51 Pulse Ox 11/18/23 14:54 11/18/23 15:14 11/18/23 15:14 Temperature Temperature Source Pulse Rate 66 Respiratory Rate Blood Pressure 106/55 L BP Systolic 106 BP Diastolic 55 Pulse Ox 100 11/18/23 14:15 11/18/23 16:15 11/18/23 16:15 Temperature Temperature Source Pulse Rate 71 Respiratory Rate 16 Blood Pressure 106/57 L BP Systolic 106 BP Diastolic 57 Pulse Ox 11/18/23 17:14 11/18/23 17:14 11/18/23 17:15 Temperature Temperature Source Pulse Rate 62 Respiratory Rate Blood Pressure 88/47 L BP Systolic 88 BP Diastolic 47 Pulse Ox 99 11/18/23 17:15 11/18/23 17:19 11/18/23 17:19 Temperature Temperature Source Pulse Rate 67 65 Respiratory Rate Blood Pressure BP Systolic BP Diastolic Pulse Ox 100 11/18/23 17:19 11/18/23 17:19 11/18/23 17:19 Temperature 98.7 F Temperature Source Temporal Pulse Rate Respiratory Rate 16 Blood Pressure BP Systolic BP Diastolic Pulse Ox 11/18/23 17:24 11/18/23 17:24 11/18/23 18:16 Temperature Temperature Source Pulse Rate 66 Respiratory Rate Blood Pressure 89/53 L 87/49 L BP Systolic 89 87 BP Diastolic 53 49 Pulse Ox 11/18/23 18:16 11/18/23 18:45 11/18/23 18:45 Temperature Temperature Source Pulse Rate 65 68 Respiratory Rate Blood Pressure 101/60 BP Systolic 101 BP Diastolic 60 Pulse Ox 11/18/23 19:15 11/18/23 19:15 11/18/23 19:35 Temperature Temperature Source Temporal Pulse Rate 74 Respiratory Rate Blood Pressure 111/57 L BP Systolic 111 BP Diastolic 57 Pulse Ox 11/18/23 19:35 11/18/23 19:35 11/18/23 14:05 Temperature 97.6 F L Temperature Source Pulse Rate Respiratory Rate 18 16 Blood Pressure BP Systolic BP Diastolic Pulse Ox 11/18/23 14:20 11/18/23 14:13 11/18/23 14:30 Temperature Temperature Source Pulse Rate Respiratory Rate 16 16 16 Blood Pressure BP Systolic BP Diastolic Pulse Ox 11/18/23 14:25 11/18/23 14:21 11/18/23 14:32 Temperature Temperature Source Pulse Rate Respiratory Rate 16 16 16 Blood Pressure BP Systolic BP Diastolic Pulse Ox 11/18/23 20:05 11/18/23 20:06 11/18/23 20:06 Temperature Temperature Source Temporal Pulse Rate 64 Respiratory Rate Blood Pressure 109/63 BP Systolic 109 BP Diastolic 63 Pulse Ox 11/18/23 20:05 11/18/23 20:05 Temperature 97.3 F L Temperature Source Pulse Rate Respiratory Rate 16 Blood Pressure BP Systolic BP Diastolic Pulse Ox Weight Weight: 251 lb Body Mass Index (BMI) 37.0 Physical Exam Const alert, oriented x3 and healthy appearing Constitutional Narrative: uncomfortable with contractions HEENT normocephalic and moist oral mucous membranes Head and Scalp: atraumatic Neck full ROM, no lymphadenopathy, supple and thyroid normal General: trachea midline Thyroid: thyroid normal Lymph Lymphatic: no lymphadenopathy noted Chest inspection of chest normal Resp normal respiratory effort Cardio regular rate GI normal to inspection, nondistended, normoactive bowel sounds, soft to palpation and non-tender Inspection: gravid external exam normal Bimanual Exam - Vag & Uterus: uterus non-tender Manual OB Exam: estimated gestational size appropriate, presentation cephalic, dilated, effaced and station Extremity normal to inspection General Extremity: Negative for edema Skin no rashes or lesions noted Neuro deep tendon reflexes 2+ bilaterally Motor Exam: strength 5/5 throughout and clonus absent Psych mental status grossly normal Labs Labs Labs: Blood Type O POSITIVE Antibody Screen NEGATIVE Hct 37.1 % (37-47) Hgb 11.9 g/dL (12.0-15.0) L Syphilis Total Ab Non-reactive Rubella IgG Antibody Reactive (Nonreactive) Hep Bs Antigen Non-Reactive (Nonreactive) Hepatitis C Antibody Non-Reactive (Nonreactive) Chlamydia DNA (JASON) Negative (Negative) N.gonorrhoeae DNA (JASON) Negative (Negative) HIV 1&2 Antibody Non-Reactive (Nonreactive) Glucose 1 Hr 50 gm 54 mg/dL (70-140) L Assessment & Plan (1) Positive GBS test: COMMENT: treat in labor (2) Nausea & vomiting: QUALIFIERS: Vomiting type: unspecified Qualified Code(s): R11.2 - Nausea with vomiting, unspecified COMMENT: vitamin b 6 and unisom adding zofran/controlling (3) History of vacuum extraction assisted delivery: COMMENT: at 39 weeks. (4) Depression with anxiety: (5) Obesity: QUALIFIERS: Obesity type: due to excess calories Obesity classification: adult class 1 (BMI 30 - 34.9) Serious obesity comorbidity presence: without serious comorbidity Body mass index: BMI 34.0-34.9 Qualified Code(s): E66.09 - Other obesity due to excess calories; Z68.34 - Body mass index [BMI] 34.0-34.9, adult COMMENT: 1hr GTT given at NOB- passed. healthy weight gain, activity in . (6) : QUALIFIERS: Weeks of gestation: 40 weeks Qualified Code(s): Z3A.40 - 40 weeks gestation of COMMENT: considering genetic and carrier screen. (7) Supervision of high risk in first trimester: COMMENT: PRR SIVAKUMAR 11/17/23 girl PC [place]. : Dinh (8) Active labor at term: PLAN: Plan Patient presents IAL, plan expectant management for , pitocin/AROM PRN if needed. Pain management: plans epidural. GBS positive plan IV PCN. Management of any complications: none I have reviewed the [facility] and made any clinically relevant updates. 11/18/232049 <Electronically signed by Gail Jackson MD> Cosigner Signature (if applicable): CC: TARIQ Pond; Dr. Gail Jackson MD~ Signed [facility] Work Phone: [phone] Procedure [facility] Evaluation note* Diagnosis Onset Date Resolution Status Depression with anxiety acut e History of vacuum extraction assisted delivery acute Nausea & vomiting acute Obesity acute acute Supervision of high risk in first trimester acute [facility] Work Phone: Evaluation note* Diagnosis Onset Date Resolution Status Depression with anxiety acut e History of vacuum extraction assisted delivery acute Nausea & vomiting acute Obesity acute acute Supervision of high risk in first trimester acute Depression with anxiety acut e History of vacuum extraction assisted delivery acute Nausea & vomiting acute Obesity acute acute Supervision of high risk in first trimester acute Depression with anxiety acut e History of vacuum extraction assisted delivery acute Nausea & vomiting acute Obesity acute acute Supervision of high risk in first trimester acute Depression with anxiety acut e History of vacuum extraction assisted delivery acute Nausea & vomiting acute Obesity acute acute Supervision of high risk in first trimester acute Depression with anxiety acut e History of vacuum extraction assisted delivery acute Nausea & vomiting acute Obesity acute acute Supervision of high risk in first trimester acute [facility] Work Phone: Evaluation note* Diagnosis Onset Date Resolution Status Depression with anxiety acut e History of vacuum extraction assisted delivery acute Nausea & vomiting acute Obesity acute acute Supervision of high risk in first trimester acute Depression with anxiety acut e History of vacuum extraction assisted delivery acute Nausea & vomiting acute Obesity acute acute Supervision of high risk in first trimester acute Depression with anxiety acut e History of vacuum extraction assisted delivery acute Nausea & vomiting acute Obesity acute acute Supervision of high risk in first trimester acute Depression with anxiety acut e History of vacuum extraction assisted delivery acute Nausea & vomiting acute Obesity acute acute Supervision of high risk in first trimester acute Depression with anxiety acut e History of vacuum extraction assisted delivery acute Nausea & vomiting acute Obesity acute acute Supervision of high risk in first trimester acute Depression with anxiety acut e History of vacuum extraction assisted delivery acute Nausea & vomiting acute Obesity acute acute Supervision of high risk in first trimester acute [facility] Work Phone: Evaluation note* Diagnosis Onset Date Resolution Status Depression with anxiety acut e History of vacuum extraction assisted delivery acute Nausea & vomiting acute Obesity acute acute Supervision of high risk in first trimester acute Depression with anxiety acut e History of vacuum extraction assisted delivery acute Nausea & vomiting acute Obesity acute acute Supervision of high risk in first trimester acute Depression with anxiety acut e History of vacuum extraction assisted delivery acute Nausea & vomiting acute Obesity acute acute Supervision of high risk in first trimester acute Depression with anxiety acut e History of vacuum extraction assisted delivery acute Nausea & vomiting acute Obesity acute acute Supervision of high risk in first trimester acute Depression with anxiety acut e History of vacuum extraction assisted delivery acute Obesity acute acute Supervision of high risk in first trimester acute Depression with anxiety acut e History of vacuum extraction assisted delivery acute Nausea & vomiting acute Obesity acute acute Supervision of high risk in first trimester acute Depression with anxiety acut e History of vacuum extraction assisted delivery acute Nausea & vomiting acute Obesity acute acute Supervision of high risk in first trimester acute Depression with anxiety acut e History of vacuum extraction assisted delivery acute Nausea & vomiting acute Obesity acute acute Supervision of high risk in first trimester acute [facility] Work Phone: Evaluation note* Diagnosis Onset Date Resolution Status Depression with anxiety acut e History of vacuum extraction assisted delivery resolved Nausea & vomiting resolved Obesity resolved resolved Supervision of high risk in first trimester resolved Depression with anxiety acut e History of vacuum extraction assisted delivery resolved Nausea & vomiting resolved Obesity resolved resolved Supervision of high risk in first trimester resolved Depression with anxiety acut e History of vacuum extraction assisted delivery resolved Nausea & vomiting resolved Obesity resolved resolved Supervision of high risk in first trimester resolved Depression with anxiety acut e History of vacuum extraction assisted delivery resolved Obesity resolved resolved Supervision of high risk in first trimester resolved Depression with anxiety acut e History of vacuum extraction assisted delivery resolved Nausea & vomiting resolved Obesity resolved resolved Supervision of high risk in first trimester resolved Depression with anxiety acut e History of vacuum extraction assisted delivery resolved Nausea & vomiting resolved Obesity resolved resolved Supervision of high risk in first trimester resolved Depression with anxiety acut e History of vacuum extraction assisted delivery resolved Nausea & vomiting resolved Obesity resolved resolved Supervision of high risk in first trimester resolved Depression with anxiety acut e History of vacuum extraction assisted delivery resolved Nausea & vomiting resolved Obesity resolved Positive GBS test resolved resolved Supervision of high risk in first trimester resolved Depression with anxiety acut e History of vacuum extraction assisted delivery resolved Nausea & vomiting resolved Obesity resolved Positive GBS test resolved resolved Supervision of high risk in first trimester resolved Depression with anxiety acut e History of vacuum extraction assisted delivery resolved Nausea & vomiting resolved Obesity resolved Positive GBS test resolved resolved Supervision of high risk in first trimester resolved Depression with anxiety acut e Vaginal delivery acute Active labor at term resolve d History of vacuum extraction assisted delivery resolved Nausea & vomiting resolved Obesity resolved Positive GBS test resolved resolved Supervision of high risk in first trimester resolved [facility] Work Phone: Evaluation note* Diagnosis Onset Date Resolution Status Depression with anxiety acut e History of vacuum extraction assisted delivery resolved Nausea & vomiting resolved Obesity resolved resolved Supervision of high risk pre gnancy in first trimester resolved Depression with anxiety acut e History of vacuum extraction assisted delivery resolved Obesity resolved resolved Supervision of high risk pre gnancy in first trimester resolved Depression with anxiety acut e History of vacuum extraction assisted delivery resolved Nausea & vomiting resolved Obesity resolved resolved Supervision of high risk pre gnancy in first trimester resolved Depression with anxiety acut e History of vacuum extraction assisted delivery resolved Nausea & vomiting resolved Obesity resolved resolved Supervision of high risk pre gnancy in first trimester resolved Depression with anxiety acut e History of vacuum extraction assisted delivery resolved Nausea & vomiting resolved Obesity resolved resolved Supervision of high risk pre gnancy in first trimester resolved Depression with anxiety acut e History of vacuum extraction assisted delivery resolved Nausea & vomiting resolved Obesity resolved Positive GBS test resolved resolved Supervision of high risk pre gnancy in first trimester resolved Depression with anxiety acut e History of vacuum extraction assisted delivery resolved Nausea & vomiting resolved Obesity resolved Positive GBS test resolved resolved Supervision of high risk pre gnancy in first trimester resolved Depression with anxiety acut e History of vacuum extraction assisted delivery resolved Nausea & vomiting resolved Obesity resolved Positive GBS test resolved resolved Supervision of high risk pre gnancy in first trimester resolved Depression with anxiety acut e Active labor at term resolve d History of vacuum extraction assisted delivery resolved Nausea & vomiting resolved Obesity resolved Positive GBS test resolved resolved Supervision of high risk pre gnancy in first trimester resolved Routine Follow-Up noneactive [facility] Work Phone: Progress note Author Gail Jackson [facility] November 20, 2023 10:42am Note Date/Time November 20, 2023 10: 42am [facility] Medical Records Department [address] [place] [address] Progress Note - OBGYN 11/20/23 1041 MR#: [id number] Acct: [id number] Name: MITUL MCDANIEL Rep #:[id number] : 1995 28 From: Gail ramos MD PCP: Angela Pond PA-C Status:ADM I N Location: [place] [address] Subjective Subjective late documentation- patient seen 11/18 at 800am Patient doing well without complaints. Tolerating PO. Ambulating and voiding without difficulty. Feeding well. Denies chest pain, shortness of breath, calf pain/swelling, fevers, chills, lightheadedness. Objective Data Objective Data Vital Signs: Vital Signs Temp Pulse Resp BP Pulse Ox O2 Del Method 97.2 F L 69 16 128/75 H 99 Room Air 11/20/23 08:49 11/20/23 08:49 11/20/23 08:49 11/20/23 08:49 11/20/23 08:49 11/20/23 03:32 Oxygen Delivery Method Room Air Weight: 251 lb Body Mass Index (BMI) 37.0 Intake & Output: Intake and Output for Last 24 Hours 11/18/23 11/19/23 11/21/23 23:59 23:59 00:59 Intake Total 1445.83 / 1445.83 Output Total 1150 / 1150 1400 / 1400 Balance 295.83 / 295.83 -1400 / -1400 Lab / Micro Data 11/18/23 13:20 ROS Constitutional Constitutional: Reports systems reviewed and no addt'l complaints, except as documented Cardiovascular Cardiovascular: Reports systems reviewed and no addt'l complaints, except as documented Respiratory/Chest Respiratory/Chest: Reports systems reviewed and no addt'l complaints, except as documented Gastrointestinal Gastrointestinal: Reports systems reviewed and no addt'l complaints, except as documented Physical Exam Const alert, oriented x3 and no apparent distress HEENT Head and Scalp: atraumatic Resp normal respiratory effort GI soft to palpation and non-tender Bimanual Exam - Vag & Uterus: uterus non-tender Uterus Palpation: uterus fundus firm (below Umbilicus) Assessment & Plan (1) Vaginal delivery: COMMENT: SM IAL girl 39 (2) Depression with anxiety: PLAN: Plan s/p PPD # 1 1. routine post delivery care 2. breast feeding- support given 3. rh positive 4. rubella immune 11/20/23 1042 <Electronically signed by Gail Jackson MD> Cosigner Signature (if applicable): CC: ~ Signed [facility] Work Phone: Progress note Author Gail Marcanthony [facility] November 20, 2023 10:43am Note Date/Time November 20, 2023 10: 43am [facility] Medical Records Department [address] [place] [address] Progress Note - OBGYN 11/20/23 1042 MR#: [id number] Acct: [id number] Name: MITUL MCDANIEL Rep #:[id number] : 1995 28 From: Gail ramos MD PCP: Angela Pond PA-C Status:ADM I N Location: [place] [address] Subjective Subjective Patient doing well without complaints. Tolerating PO. Ambulating and voiding without difficulty. infant feeding well. Denies chest pain, shortness of breath,calf pain/swelling, fevers, chills, lightheadedness. Objective Data Objective Data Vital Signs: Vital Signs Temp Pulse Resp BP Pulse Ox O2 Del Method 97.2 F L 69 16 128/75 H 99 Room Air 11/20/23 08:49 11/20/23 08:49 11/20/23 08:49 11/20/23 08:49 11/20/23 08:49 11/20/23 03:32 Oxygen Delivery Method Room Air Weight: 251 lb Body Mass Index (BMI) 37.0 Intake & Output: Intake and Output for Last 24 Hours 11/18/23 11/19/23 11/21/23 23:59 23:59 00:59 Intake Total 1445.83 / 1445.83 Output Total 1150 / 1150 1400 / 1400 Balance 295.83 / 295.83 -1400 / -1400 Lab / Micro Data 11/18/23 13:20 ROS Constitutional Constitutional: Reports systems reviewed and no addt'l complaints, except as documented Cardiovascular Cardiovascular: Reports systems reviewed and no addt'l complaints, except as documented Respiratory/Chest Respiratory/Chest: Reports systems reviewed and no addt'l complaints, except as documented Gastrointestinal Gastrointestinal: Reports systems reviewed and no addt'l complaints, except as documented Physical Exam Const alert, oriented x3 and no apparent distress HEENT Head and Scalp: atraumatic Resp normal respiratory effort GI soft to palpation and non-tender Bimanual Exam - Vag & Uterus: uterus non-tender Uterus Palpation: uterus fundus firm (below Umbilicus) Assessment & Plan (1) Vaginal delivery: COMMENT: SM IAL girl Natacha 39 (2) Depression with anxiety: PLAN: Plan s/p PPD # 2 1. routine post delivery care 2. breast feeding- support given 3. rh positive 4. rubella immune 11/20/23 1043 <Electronically signed by Gail Jackson MD> Cosigner Signature (if applicable): CC: ~ Signed [facility] Work Phone: Summary Purpose Family History No Family History Records Found Relationship Condition Age at Onset Recorded Date/T farhan father Hodgkin lymphoma Unknown Advance Directives No Advanced Directives Records Found Advance Directive Response Recorded Date/ Time Living Will No November 18, 2023 3:09pm Power of Spinneret Cleaner No November 17 3:09pm Chief Complaint and Reason for Visit Chief Complaint NOB LMP: 02/10 Reason for Visit Depression with anxi ety History of vacuum extraction assisted delivery Nausea & vomiting Obesity Supervision of high risk in first trimester Chief Complaint NOB LMP: 02/10 13 WK OB 17 WK OB 21 WK OB 25 WK OB Reason for Visit Depression with anxi ety History of vacuum extraction assisted delivery Nausea & vomiting Obesity Supervision of high risk in first trimester Depression with anxiety History of vacuum extraction assisted delivery Nausea & vomiting Obesity Supervision of high risk in first trimester Depression with anxiety History of vacuum extraction assisted delivery Nausea & vomiting Obesity Supervision of high risk in first trimester Depression with anxiety History of vacuum extraction assisted delivery Nausea & vomiting Obesity Supervision of high risk in first trimester Depression with anxiety History of vacuum extraction assisted delivery Nausea & vomiting Obesity Supervision of high risk in first trimester Chief Complaint 13 WK OB 17 WK OB 21 WK OB 25 WK OB 28 WK OB 30 WK OB Reason for Visit Depression with anxi ety History of vacuum extraction assisted delivery Nausea & vomiting Obesity Supervision of high risk in first trimester Depression with anxiety History of vacuum extraction assisted delivery Nausea & vomiting Obesity Supervision of high risk in first trimester Depression with anxiety History of vacuum extraction assisted delivery Nausea & vomiting Obesity Supervision of high risk in first trimester Depression with anxiety History of vacuum extraction assisted delivery Nausea & vomiting Obesity Supervision of high risk in first trimester Depression with anxiety History of vacuum extraction assisted delivery Nausea & vomiting Obesity Supervision of high risk in first trimester Depression with anxiety History of vacuum extraction assisted delivery Nausea & vomiting Obesity Supervision of high risk in first trimester Chief Complaint 21 WK OB 25 WK OB 28 WK OB 30 WK OB 32 WK OB 34 WK OB 36 WK OB 37 WK OB Reason for Visit Depression with anxi ety History of vacuum extraction assisted delivery Nausea & vomiting Obesity Supervision of high risk in first trimester Depression with anxiety History of vacuum extraction assisted delivery Nausea & vomiting Obesity Supervision of high risk in first trimester Depression with anxiety History of vacuum extraction assisted delivery Nausea & vomiting Obesity Supervision of high risk in first trimester Depression with anxiety History of vacuum extraction assisted delivery Nausea & vomiting Obesity Supervision of high risk in first trimester Depression with anxiety History of vacuum extraction assisted delivery Obesity Supervision of high risk in first trimester Depression with anxiety History of vacuum extraction assisted delivery Nausea & vomiting Obesity Supervision of high risk in first trimester Depression with anxiety History of vacuum extraction assisted delivery Nausea & vomiting Obesity Supervision of high risk in first trimester Depression with anxiety History of vacuum extraction assisted delivery Nausea & vomiting Obesity Supervision of high risk in first trimester Chief Complaint 25 WK OB 28 WK OB 30 WK OB 32 WK OB 34 WK OB 36 WK OB 37 WK OB 38 WK OB 39 WK OB 40 WK OB *per SM* VAGINAL DELIVERY OB, Contractions VAGINAL DELIVERY VAGINAL DELIVERY Reason for Visit Depression with anxi ety History of vacuum extraction assisted delivery Nausea & vomiting Obesity Supervision of high risk in first trimester Depression with anxiety History of vacuum extraction assisted delivery Nausea & vomiting Obesity Supervision of high risk in first trimester Depression with anxiety History of vacuum extraction assisted delivery Nausea & vomiting Obesity Supervision of high risk in first trimester Depression with anxiety History of vacuum extraction assisted delivery Obesity Supervision of high risk in first trimester Depression with anxiety History of vacuum extraction assisted delivery Nausea & vomiting Obesity Supervision of high risk in first trimester Depression with anxiety History of vacuum extraction assisted delivery Nausea & vomiting Obesity Supervision of high risk in first trimester Depression with anxiety History of vacuum extraction assisted delivery Nausea & vomiting Obesity Supervision of high risk in first trimester Depression with anxiety History of vacuum extraction assisted delivery Nausea & vomiting Obesity Positive GBS test Supervision of high risk in first trimester Depression with anxiety History of vacuum extraction assisted delivery Nausea & vomiting Obesity Positive GBS test Supervision of high risk in first trimester Depression with anxiety History of vacuum extraction assisted delivery Nausea & vomiting Obesity Positive GBS test Supervision of high risk in first trimester Depression with anxiety Vaginal delivery Active labor at term History of vacuum extraction assisted delivery Nausea & vomiting Obesity Positive GBS test Supervision of high risk in first trimester Chief Complaint 30 WK OB 32 WK OB 34 WK OB 36 WK OB 37 WK OB 38 WK OB 39 WK OB 40 WK OB *per SM* VAGINAL DELIVERY OB, Contractions VAGINAL DELIVERY VAGINAL DELIVERY visit (obstetrics) Reason for Visit Depression with anxi ety History of vacuum extraction assisted delivery Nausea & vomiting Obesity Supervision of high risk in first trimester Depression with anxiety History of vacuum extraction assisted delivery Obesity Supervision of high risk in first trimester Depression with anxiety History of vacuum extraction assisted delivery Nausea & vomiting Obesity Supervision of high risk in first trimester Depression with anxiety History of vacuum extraction assisted delivery Nausea & vomiting Obesity Supervision of high risk in first trimester Depression with anxiety History of vacuum extraction assisted delivery Nausea & vomiting Obesity Supervision of high risk in first trimester Depression with anxiety History of vacuum extraction assisted delivery Nausea & vomiting Obesity Positive GBS test Supervision of high risk in first trimester Depression with anxiety History of vacuum extraction assisted delivery Nausea & vomiting Obesity Positive GBS test Supervision of high risk in first trimester Depression with anxiety History of vacuum extraction assisted delivery Nausea & vomiting Obesity Positive GBS test Supervision of high risk in first trimester Depression with anxiety Active labor at term History of vacuum extraction assisted delivery Nausea & vomiting Obesity Positive GBS test Supervision of high risk in first trimester Routine Follow-Up Additional Source Comments INFORMATION SOURCE (unrecogn ized section and content) DATE CREATED AUTHOR 07/05/2019 [facility] ([place]) DATE CREATED AUTHOR AUTHOR'S ORGANIZ ATION 07/23/2020 [facility] DATE CREATED AUTHOR AUTHOR'S ORGANIZ ATION 07/12/2021 [facility] DATE CREATED AUTHOR AUTHOR'S ORGANIZ ATION 10/30/2021 [facility] DATE CREATED AUTHOR AUTHOR'S ORGANIZ ATION 06/22/2023 [facility] DATE CREATED AUTHOR AUTHOR'S ORGANIZ ATION 01/05/2024 [facility] DATE CREATED AUTHOR AUTHOR'S ORGANIZ ATION 06/29/2024 [facility] Care Teams (unrecognized sec tion and content) Team Status: Inactive Member Role Status Dates Judy Villa CNM Attending Provider Active Team Status: Inactive Member Role Status Dates Judy Villa CNM Attending Provider, Referring Pr ovider Active Team Status: Active Member Role Status Dates [facility] PA, PA-C Primary Care Provider Active Team Status: Inactive Member Role Status Dates Dr. Indigo Reyes DO Attending Provider Activ e [facility] PA, PA-C Primary Care Provider, Referri ng Provider Active Team Status: Inactive Member Role Status Bella Lopez WIRER MAINTENANCE, WIRER MAINTENANCE-C Attending Provider Active [facility] PA, PA-C Primary Care Provider, Referri ng Provider Active Team Status: Inactive Member Role Status Dates [facility] PA, PA-C Primary Care Provider, Referri ng Provider Active Dr. Indigo Reyes DO Attending Provider Activ e Team Status: Inactive Member Role Status Dates [facility] PA, PA-C Primary Care Provider, Referri ng Provider Active Dr. Gail Jackson MD Attending Provider Active Team Status: Inactive Member Role Status [facility] PA, PA-C Primary Care Provider Active Judy Villa CNM Attending Provider, Referring Pr ovider Active Team Status: Inactive Member Role Status Edilberto [facility] PA, PA-C Primary Care Provider Active Dr. Indigo Reyes DO Attending Provider, Refe rring Provider Active Dr. Gail Jackson MD Other Provider Active Team Status: Inactive Member Role Status Edilberto [place]ond PA, PA-C Primary Care Provider Active Dr. Gail Jackson MD Attending Provider, Referr ing Provider Active Team Status: Inactive Member Role Status [facility] PA, PA-C Primary Care Provider, Referri ng Provider Active Judy Villa CNM Attending Provider Active Team Status: Inactive Member Role Status [facility] PA, PA-C Primary Care Provider, Referri ng Provider Active Lauren eSrra CNM Attending Provider Active Team Status: Inactive Member Role Status Dates [facility] PA, PA-C Primary Care Provider Active Lauren Serra CNM Attending Provider, Referring Pro vider Active Team Status: Active Member Role Status Edilberto Angela Bono PA, PA-C Primary Care Provider Active Dr. Gail Jackson MD Admit Provid er, Attending Provider, Referring Provider, Other Provider Active Team Status: Inactive Member Role Status Edilberto Angela [place] PA, PA-C Primary Care Provider Active Dr. Gail Jackson MD Admit Provid er, Attending Provider, Referring Provider Active Team Status: Inactive Member Role Status Dates NAVARRO Ann-Marie Primary Care Provider, Referri ng Provider Active Bella Lopez NP, NP-Marie Attending Provider Active Team Status: Inactive Member Role Status Dates Angela BRICEÑO PA-C Primary Care Provider Active Bella Loepz NP, AJ-C Attending Provider, Referring Provider Active Goals (unrecognized section and content) Goals may be documented in a n alternate sectionGoals may be documented in an alternate sectionGoals may be documented in an alternate sectionGoals may be documented in an alternate section FOR RECORDS PERTAINING TO PATIENTS WHO ARE [...] BE BASED ON THE PRIMARY CLINICAL RECORDS. [employer] provides no warranty or guarantee of the accuracy or completeness of information in this document.
[2025-07-01 12:11] LABS: Hematocrit 38.0 % (37-47); Hemoglobin 12.4 g/dL (12.0-15.0); Immature Granulocytes Count 0.030 X10^3/uL (0.0-0.0); Mean Corp Hgb Conc 32.6 g/dL (32-36); Mean Corpuscular Volume 87.2 fL (81-99); Mean Platelet Vol. 9.8 fl (6.2-12.0); NRBC Flagged by Analyzer 0 % (0-5); Platelet Count 274 K/mm3 (150-450); RBC Distribution Width CV 13.2 % (11.6-14.6); RBC Distribution Width SD 42.2 fl (35.1-43.9); Red Blood Count 4.36 M/mm3 (4.2-5.4); White Blood Count 9.2 K/mm3 (4.4-11.0)
[2025-07-01 12:45] LABS: HIV Nonreactive (Nonreactive); Hepatitis B Surface Antigen Nonreactive (Nonreactive); Hepatitis C Antibody Nonreactive (Nonreactive); Syphilis Antibodies Nonreactive (Nonreactive)
[2025-07-03 06:08] LABS: Chlamydia By Nucleic Acid AMP Negative (Negative); Gonococcus By Nucleic Acid AMP Negative (Negative)
== END | disposition home or self-care (01) ==
PROVIDERS: PCP Family Medicine; Visit Provider Obstetrics & Gynecology
DX: O99.210 Obesity complicating pregnancy, unspecified trimester (principal); Z3A.00 Weeks of gestation of pregnancy not specified
CPT/HCPCS: 36415; 83036; 85025; 86703; 86762; 86780; 86803; 86850; 86900; 86901; 87086; 87340; 87491; 87591